=== PATIENT | female | born 1970 | race Hispanic/Latino ===

== ENCOUNTER 2016-12-23 21:19 | Emergency (ER) | payer OTHER | END 2016-12-23 22:32 | disposition home or self-care (01) | LOC: ERS 21:19 | DX: F41.9 Anxiety disorder, unspecified (principal); E11.9 Type 2 diabetes mellitus without complications; E78.5 Hyperlipidemia, unspecified; I10 Essential (primary) hypertension; F20.9 Schizophrenia, unspecified; F31.9 Bipolar disorder, unspecified | CPT/HCPCS: 99284 ==

== ENCOUNTER 2017-01-25 12:00 | Emergency (ER) | payer OTHER ==
[2017-01-25 13:27] LABS: #Lymphocytes 2.7 thou/uL (1.20-3.40); #Monocytes 0.8 thou/uL (0.11-0.59); #Neutrophils 2.8 thou/uL (1.40-6.50); %Basophils 0.5 % (0.0-1.0); %Eosinophils 0.6 % (0.0-10.0); %Lymphocytes 43.1 % (21.0-51.0); %Monocytes 12.4 % (0.0-10.0); Hematocrit 43.5 % (36.0-47.0); Mean Platelet Volume 8.3 fL (7.4-10.4); Red Blood Cell (RBC) Count 4.85 mill/uL (4.20-5.40); White Blood Cell (WBC) Count 6.3 thou/uL (4.8-10.8)
[2017-01-25 13:34] LABS: Bilirubin Negative (Negative); Blood, Urine Negative (Negative); Glucose, Urine (Dipstick) 100 mg/dL (Negative); Ketone, Urine Trace mg/dL (Negative); Nitrite Negative (Negative); Protein, Urine (Dipstick) 30 mg/dL (Neg-Trace)
[2017-01-25 13:36] LABS: Bacteria/HPF Rare-Few HPF (None Seen); Hyaline Casts/LPF 0-3 HYALINE CAST LPF (0-3 Hyaline); RBC/HPF 0-3 HPF (0-3); WBC/HPF 0-3 HPF (0-3)
[2017-01-25 13:50] LABS: ALT (SGPT) 40 U/L (8-55); AST (SGOT) 30 U/L (5-34); Alkaline Phosphatase 118 U/L (40-150); Anion Gap 13 mmol/L (10-20); BUN (Urea Nitrogen) 6 mg/dL (7.0-18.7); Bilirubin, Total 0.5 mg/dL (0.2-1.2); Calc. Creatinine Clearance 0 mL/min (70-130); Calcium 9.3 mg/dL (7.8-10.44); Carbon Dioxide 26 mmol/L (22-29); Chloride 103 mmol/L (98-107); Estimated GFR-MDRD 76; Globulin 3.6 g/dL (2.4-3.5); Lipase 10 U/L (8-78); Protein, Total 7.7 g/dL (6.0-8.3)
[2017-01-25] MEDS ORDERED: Ondansetron HCl/PF 4 MG/2 ML Vial ONE (15:45)
[2017-01-25] MEDS ORDERED: Ondansetron ODT 4 MG TAB ONE (16:24)
== END 2017-01-25 17:08 | disposition home or self-care (01) ==
LOC: ERS 12:00
DX: E86.0 Dehydration (principal); R19.7 Diarrhea, unspecified; E11.9 Type 2 diabetes mellitus without complications; E78.5 Hyperlipidemia, unspecified; I10 Essential (primary) hypertension; F41.9 Anxiety disorder, unspecified; F31.9 Bipolar disorder, unspecified; F20.9 Schizophrenia, unspecified; Z86.73 Personal history of transient ischemic attack (TIA), and cerebral infarction without residual deficits
CPT/HCPCS: 36415; 80053; 81003; 81015; 83690; 85025; 96372; J2405; Q0162

== ENCOUNTER 2017-02-09 19:23 | Observation (INO) | payer OTHER ==
[2017-02-09 20:08] LABS: #Basophils 0.1 thou/uL (0.0-0.2); #Eosinphils 0.1 thou/uL (0.0-0.7); #Lymphocytes 3.3 thou/uL (1.20-3.40); #Monocytes 0.6 thou/uL (0.11-0.59); #Neutrophils 4.2 thou/uL (1.40-6.50); %Basophils 0.7 % (0.0-1.0); %Eosinophils 1.3 % (0.0-10.0); %Lymphocytes 39.7 % (21.0-51.0); %Monocytes 7.5 % (0.0-10.0); Hematocrit 37.6 % (36.0-47.0); Mean Platelet Volume 8.6 fL (7.4-10.4); Red Blood Cell (RBC) Count 4.14 mill/uL (4.20-5.40); White Blood Cell (WBC) Count 8.2 thou/uL (4.8-10.8)
[2017-02-09 20:30] LABS: ALT (SGPT) 91 U/L (8-55); AST (SGOT) 36 U/L (5-34); Alkaline Phosphatase 154 U/L (40-150); Anion Gap 16 mmol/L (10-20); BUN (Urea Nitrogen) 15 mg/dL (7.0-18.7); Bilirubin, Total 0.4 mg/dL (0.2-1.2); Calc. Creatinine Clearance 0 mL/min (70-130); Calcium 10.1 mg/dL (7.8-10.44); Carbon Dioxide 23 mmol/L (22-29); Chloride 94 mmol/L (98-107); Estimated GFR-MDRD 54; Globulin 3.5 g/dL (2.4-3.5); Protein, Total 7.4 g/dL (6.0-8.3)
[2017-02-09 20:33] LABS: Anion Gap 10 mmol/L (-14-95); pH (Venous) 7.432 (7.35-7.45); vO2 Saturation-calc 89.6 % (0.0-100.0)
[2017-02-09 20:35] LABS: Bilirubin Negative (Negative); Blood, Urine Negative (Negative); Glucose, Urine (Dipstick) >=1000 mg/dL (Negative); Ketone, Urine Negative (Negative); Nitrite Negative (Negative); Protein, Urine (Dipstick) Negative (Neg-Trace); Urobilinogen 0.2 mg/dL (0.2-1.0)
[2017-02-09 20:38] LABS: Troponin I Less than 0.010 ng/mL (< 0.028)
--- NOTE | 2017-02-09 20:52 | RAD ---
FRONTAL VIEW CHEST 02/09/17 INDICATION: Hyperglycemia. COMPARISON: 04/09/16 FINDINGS: Mild interstitial prominence of each lung present. The cardiac silhouette is stable. No new consoli dation, or effusion. No discrete pneumothorax. IMPRESSION: Stable chest. Mild interstitial prominence of each lung could relate to edema or interstitial lung d isease. Correlate clinically and as necessary imaging followup may be obtained. POS: [facility]
[2017-02-09] MEDS ORDERED: Insulin Regular 300 UNITS/3 ML VIAL ONE (21:22)
[2017-02-09] MEDS ORDERED: Ondansetron HCl/PF 4 MG/2 ML Vial ONE (23:06)
[2017-02-09] MEDS ORDERED: Ondansetron HCl/PF 4 MG/2 ML Vial IVP PRN (23:42)
[2017-02-09] MEDS ORDERED: hydrALAZINE 20 MG/ML VIAL SLOW IVP PRN (23:42)
[2017-02-09] MEDS ORDERED: cloNIDine 0.1 MG TAB PO PRN (23:42)
[2017-02-09] MEDS ORDERED: Dextrose 5% in Water 1,000 ML IV PRN (23:42)
[2017-02-09] MEDS ORDERED: Acetaminophen 325 MG TAB PO PRN (23:42)
[2017-02-09] MEDS ORDERED: Dextrose 50% Abboject 50 ML SYRINGE SLOW IVP PRN (23:42)
[2017-02-10] MEDS: Sodium Chloride 0.9% 1,000 ML IV SCH ×2 (00:09→14:57)
[2017-02-10] MEDS: traMADol HCl 50 MG TAB PO PRN ×2 (00:10→12:52)
[2017-02-10] MEDS ORDERED: Insulin Detemir 100 UNITS/ML 30 UNITS in Pre-Filled Syringe 1 EACH SC SCH (00:45)
[2017-02-10 00:57] LABS: Bilirubin Negative (Negative); Blood, Urine Negative (Negative); Glucose, Urine (Dipstick) >=1000 mg/dL (Negative); Ketone, Urine Negative (Negative); Nitrite Negative (Negative); Protein, Urine (Dipstick) Negative (Neg-Trace)
[2017-02-10 01:00] LABS: Bacteria/HPF Rare-Few HPF (None Seen); Hyaline Casts/LPF 0-3 HYALINE CAST LPF (0-3 Hyaline); RBC/HPF 0-3 HPF (0-3); Squamous Epithelial None Seen HPF (0-3); WBC/HPF None Seen HPF (0-3)
[2017-02-10 05:26] LABS: #Eosinphils 0.1 thou/uL (0.0-0.7); #Lymphocytes 3.4 thou/uL (1.20-3.40); #Monocytes 0.6 thou/uL (0.11-0.59); %Basophils 0.3 % (0.0-1.0); %Lymphocytes 48.2 % (21.0-51.0); %Monocytes 8.5 % (0.0-10.0); Hematocrit 36.8 % (36.0-47.0); Mean Platelet Volume 8.6 fL (7.4-10.4); Red Blood Cell (RBC) Count 4.08 mill/uL (4.20-5.40); White Blood Cell (WBC) Count 7.1 thou/uL (4.8-10.8)
--- NOTE | 2017-02-10 05:47 | HP ---
CHIEF COMPLAINT: High glucose. HISTORY OF PRESENT ILLNESS: This is a 47-year-old pleasant lady who was apparently in usual state o f health and says that she is compliant with her diet and medications. Reports that she took her No voLog and Levemir as scheduled and she checked her sugar at 5 p.m. and it was still running greater than 500 and right now she feels dry in her mouth and that is why she came into the hospital for fur ther evaluation and treatment. She denies any chest pain, dizziness. Complains of some nausea. No abdominal pain, no vomiting, no fever, no chills, no diarrhea, no dysuria. Patient has been admitt ed for further evaluation of that. PAST MEDICAL HISTORY: 1. Morbid obesity. 2. Chronic pain syndrome. 3. Diverticulosis. 4. Peptic ulcer disease. 5. Anxiety, depression. 6. Bipolar disorder. 7. Schizophrenia. 8. Rhabdomyolysis in the past. 9. 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 10. Hyperlipidemia. 11. Hypertension. 12. History of pain seeking behavior. PAST SURGICAL HISTORY: C-sections x2, right eye surgery, cholecystectomy, hysterectomy, back surger y, left carpal tunnel surgery. ALLERGIES: STADOL, TORADOL and BUTORPHANOL. CURRENT MEDICATIONS: She is unable to recall any current medications, but she says that she takes 9 0 units of Levemir twice a day and takes 300 mg of tramadol for pain control. She does not remember the other medications which will have to be verified in the morning. SOCIAL HISTORY: Denies tobacco, alcohol, or drug use. REVIEW OF SYSTEMS: Significant for high glucose and some nausea, otherwise no fever, no chills, no headache, no appetite and weight changes. No cough, no chest pain, diarrhea, dysuria or polyuria. N o memory mood changes. No pain. PHYSICAL EXAMINATION: VITAL SIGNS: Blood pressure is 107/64, pulse is 84, temperature afebrile. Respirations 20. GENERAL: Patient is lying in bed in no apparent distress. HEENT: Atraumatic, normocephalic. Pupils equally round, react to light. Extraocular movements int act. Mucous membranes are moist. NECK: Supple. No JVD. CHEST: Breath sounds heard. There are no rales or rhonchi. HEART: S1, S2. No murmurs or gallops. ABDOMEN: Soft, obese. EXTREMITIES: No cyanosis, clubbing, edema. Left wrist is in a brace. NEUROLOGIC: Her speech is slow. She is a little drowsy. She admits to taking tramadol this after noon, 300 mg. No sensorimotor deficits. SKIN: Warm and dry, normal in color. PSYCHIATRIC: Normal affect. LABORATORY DATA: Chest x-ray shows some mild interstitial prominence which could relate to edema or interstitial lung disease. CK-MB is 20.9, troponin is less than 0.01. UA shows glucosuria, otherw ise negative. Venous pH is 7.43. Sodium is 129, potassium is 4.0, chloride is 94, creatinine is 1. 08, glucose was 670, AST is 36, ALT is 91, alkaline phosphatase was 154. WBC count is 8.2, hemoglob in is 13.0. ASSESSMENT AND PLAN: 1. Elevated glucose. Diabetes with uncontrolled glucose. The patient says that she is compliant w ith Levemir and with insulin and the diet. She got 10 units of insulin in this hospital which was b rought her sugars from 672 down to 300s. We will start her off on 30 of Levemir b.i.d. and put her on an aggressive sliding scale, we will optimize her glucose control this hospital stay. We will al so IV hydrate, give her IV fluids for hydration. 2. Hyponatremia. We will give IV fluids. 3. Elevated liver function tests. The patient has been evaluated in the past. GI was consulted an d at that time they thought it was probably secondary to some kind of viral hepatitis. She has been encouraged to follow up as an outpatient with GI. 4. Irritable bowel disease with diarrhea. She says that right now she is doing fine with that. 5. Morbid obesity, stable. 6. Hyperlipidemia, stable. 7. History of peptic ulcer disease, stable. 8. History of hypothyroidism. She does not remember the dose of the thyroid medication. 9. Chronic pain syndrome. She was initially on fentanyl and a bunch of other pain medications. Ri t now she takes 300 mg of tramadol once a day for pain control. We will put her back on tramadol 50 mg p.o. q.6 hours p.r.n. for pain. 10. Sequential compression devices for deep venous thrombosis prophylaxis. I will follow the labs and do the need for.
[2017-02-10 05:54] LABS: Anion Gap 15 mmol/L (10-20); BUN (Urea Nitrogen) 13 mg/dL (7.0-18.7); Calc. Creatinine Clearance 0 mL/min (70-130); Calcium 10.6 mg/dL (7.8-10.44); Carbon Dioxide 23 mmol/L (22-29); Chloride 100 mmol/L (98-107); Estimated GFR-MDRD 84
[2017-02-10] MEDS: HumaLOG 300 UNITS/3 ML VIAL SC PRN ×5 (06:10→20:24)
[2017-02-10] MEDS ORDERED: Insulin Detemir 100 UNITS/ML 30 UNITS in Admixture Fee 1 EACH SC SCH ×2 (09:00→21:00)
[2017-02-10] MEDS ORDERED: FLU VACC QS2017-18 36 mo. & older 0.5 ML SYRINGE IM ONE (09:00)
[2017-02-10] MEDS: Famotidine 20 MG TAB PO SCH ×2 (09:09→20:21)
[2017-02-10] MEDS ORDERED: HYDROcodone/Acetaminophen 10/325 mg Tablet PO PRN (14:18)
[2017-02-10] MEDS ORDERED: Insulin Detemir 100 UNITS/ML 45 UNITS in Admixture Fee 1 EACH SC SCH ×2 (16:53→21:00)
--- NOTE | 2017-02-10 17:10 | PDOC.PN ---
- Subjective Encounter Start Date: 02/10/17 Encounter Start Time: 16:50 Subjective: f/u for hyperglycemia in context of DM II poor control. Glucose trend -: improved but not controlled. Pt with multiple somatic complaints. - Objective MAR Reviewed: Yes Vital Signs & Weight: Vital Signs (12 hours) Temp Pulse Resp BP Pulse Ox 02/10/17 15:00 97.9 F 105 H 16 176/90 H 93 L 02/10/17 11:00 98.3 F 105 H 16 131/73 94 L 02/10/17 07:50 97.5 F L 91 18 02/10/17 07:10 98.0 F 96 16 125/69 98 Weight Admit Weight 252 lb 8 oz I&O: 02/09/17 02/10/17 02/11/17 06:59 06:59 06:59 Intake Total 976 Output Total 1600 Balance -624 Result Diagrams: 02/10/17 05:04 02/10/17 05:04 Additional Labs: Accuchecks 02/10/17 02/10/17 02/10/17 16:41 12:08 10:44 POC Glucose 237 H 284 H 351 H 02/10/17 02/10/17 02/10/17 09:08 06:23 06:10 POC Glucose 410 H 371 H 348 H 02/09/17 23:11 POC Glucose 308 H Laboratory Tests 02/09/17 02/09/17 02/10/17 19:43 20:08 00:25 Urine Glucose (UA) >=1000 H >=1000 H B-Hydroxybutyrate 0.21 Radiology Reviewed by me: Yes (PCXR - atelectasis) EKG Reviewed by me: Yes (Tele - SR) Phys Exam - Physical Examination Constitutional: NAD HEENT: PERRLA, oral pharynx no lesions Neck: no JVD, supple Respiratory: no wheezing, clear to auscultation bilateral Cardiovascular: RRR obese Gastrointestinal: soft, non-tender, no distention, positive bowel sounds Musculoskeletal: no edema, pulses present Neurological: moves all 4 limbs Psychiatric: A&O x 3 Skin: normal turgor, cap refill <2 seconds Dx/Plan (1) Hyperglycemia due to type 2 diabetes mellitus Code(s): E11.65 - TYPE 2 DIABETES MELLITUS WITH HYPERGLYCEMIA Status: Acute Comment: Poorly controlled DM II, resume home Levemir 100u sc BID, ISS, Resume Victoza (2) Bipolar 1 disorder Code(s): F31.9 - BIPOLAR DISORDER, UNSPECIFIED Status: Chronic Comment: Resume home regimen (3) Hyponatremia Code(s): E87.1 - HYPO-OSMOLALITY AND HYPONATREMIA Status: Acute Comment: Secondary to hyperglycemia, repeat BMP in am (4) Chronic pain syndrome Status: Chronic (5) Fatty liver Code(s): K76.0 - FATTY (CHANGE OF) LIVER, NOT ELSEWHERE CLASSIFIED Status: Chronic Comment: chronic transaminitis (6) Hypothyroidism Code(s): E03.9 - HYPOTHYROIDISM, UNSPECIFIED Status: Chronic Qualifiers: Hypothyroidism type: unspecified Qualified Code(s): E03.9 - Hypothyroidism , unspecified (7) Morbid obesity with BMI of 40.0-44.9, adult Code(s): E66.01 - MORBID (SEVERE) OBESITY DUE TO EXCESS CALORIES; Z68.41 - BODY MASS INDEX (BMI) 40.0-44.9, ADULT Status: Chronic - Plan out of bed/ambulate, DVT proph w/SCDs Stable overall -: Pain control with Morphine Sulfate 2mg IV q4h prn -: Resume home Levemir 100u sc BID -: Resume Victoza -: Saline lock IVF's * AM lab: CMP, CBC * Likely home in am
[2017-02-10] MEDS: Morphine PF 1 MG/ML SYR IVP PRN ×2 (17:36→21:50)
[2017-02-10] MEDS: cloNIDine 0.3 MG TAB PO SCH (20:21)
[2017-02-10] MEDS: clonazePAM 1 MG TAB PO SCH (20:22)
[2017-02-10] MEDS: Gabapentin 300 MG CAP PO SCH (20:22)
[2017-02-10] MEDS: Carvedilol 6.25 MG TAB PO SCH (20:22)
[2017-02-10] MEDS: Insulin Detemir 100 UNITS/ML 100 UNITS in Pre-Filled Syringe 1 EACH SC SCH (20:23)
[2017-02-10] MEDS ORDERED: tiZANidine HCl 4 MG TAB PO PRN (21:00)
[2017-02-10] MEDS ORDERED: INSULIN DETEMIR 100 UNIT SC SCH (21:00)
[2017-02-10] MEDS ORDERED: DULoxetine 60 MG CAP PO SCH (21:00)
[2017-02-11] MEDS ORDERED: Zolpidem Tartrate 5 MG TAB PO SCH (01:15)
[2017-02-11] MEDS: Morphine PF 1 MG/ML SYR IVP PRN ×2 (02:54→08:14)
[2017-02-11] MEDS: Sodium Chloride 0.9% 1,000 ML IV SCH (03:00)
[2017-02-11 05:45] VITALS: BMI 40.7
[2017-02-11] MEDS ORDERED: Levothyroxine Sodium 25 MCG TAB PO SCH (06:00)
[2017-02-11 08:12] VITALS: BP 161/91; TEMP 97.8
[2017-02-11] MEDS ORDERED: TRAMADOL HCL 300 MG PO SCH (09:00)
[2017-02-11] MEDS ORDERED: Allopurinol 100 MG TAB PO SCH (09:00)
[2017-02-11] MEDS ORDERED: Liraglutide [Victoza 2-Pak] 1.8 MG SC SCH (09:00)
[2017-02-11] MEDS: cloNIDine 0.3 MG TAB PO SCH (09:06)
[2017-02-11] MEDS: Carvedilol 6.25 MG TAB PO SCH (09:06)
[2017-02-11] MEDS: clonazePAM 1 MG TAB PO SCH (09:06)
[2017-02-11] MEDS: Gabapentin 300 MG CAP PO SCH (09:07)
[2017-02-11] MEDS: Insulin Detemir 100 UNITS/ML 100 UNITS in Pre-Filled Syringe 1 EACH SC SCH (09:07)
[2017-02-11] MEDS: Famotidine 20 MG TAB PO SCH (09:07)
--- NOTE | 2017-02-11 16:35 | DIS ---
DATE OF ADMISSION: 02/09/2017 DATE OF DISCHARGE: 02/11/2017 DISCHARGE DIAGNOSES: 1. Hyperglycemia in the context of diabetes mellitus type 2, insulin requiring, poorly controlled. 2. Chronic pain syndrome. 3. Bipolar disorder. 4. Hyponatremia secondary to hyperglycemia. 5. Fatty liver disease. 6. Morbid obesity. 7. Hypothyroidism, stable. 8. Sinus tachycardia. 9. Hypertension, stable. CONSULTATIONS: None. PERTINENT LABORATORY AND X-RAY FINDINGS: Sodium ranged between 129-134, glucose ranged between 180- 670, AST 36, ALT 91, alkaline phosphatase 154, albumin 3.9. CBC within normal limits. Beta hydroxy butyrate level 0.21. Portable chest x-ray dated 02/09/2017 showed basilar atelectasis. HOSPITAL COURSE: The patient was observed on the medical unit after presenting with markedly elevat ed glucose with values greater than 600. The patient with known history of diabetes mellitus type 2 , insulin requiring with multiple admissions regarding the same. The patient was placed on IV fluid s in addition to subcutaneous insulin with titration to home regimen to include Levemir 100 units zeng bcutaneously b.i.d. The patient's overall glucose trend with labile; however, had improved with sup portive management. No specific underlying etiology identified such as infectious process to explai n patient's presentation. Likely secondarily to dietary noncompliance. The patient was treated for mild hyponatremia secondary to hyperglycemia, improving by the time of discharge. The patient also required IV pain control with morphine sulfate in the context of known chronic pain syndrome and mi ld drug seeking behavior. Telemetry monitoring showed sinus mechanism with occasional sinus tachyca rdia without acute arrhythmia or dysrhythmia. The patient overall remained clinically stable, recei ving dietary counseling from the dietitian services. The patient ready for discharge on 02/11/2017. DISCHARGE MEDICATIONS: 1. Allopurinol 100 mg 1 tab p.o. daily. 2. Coreg 6.25 mg p.o. b.i.d. 3. Cymbalta 120 mg p.o. at bedtime. 4. Gabapentin 600 mg p.o. t.i.d. 5. Holcomb 10/325 mg 1 tab p.o. q.6 hours p.r.n. pain, #12 given, no refills. 6. Humalog t.i.d. with meals. 7. Levemir FlexPen 100 units subcutaneously b.i.d. 8. Levothyroxine 25 mcg p.o. daily. 9. Victoza 1.8 mg subcutaneously daily. 10. Protonix 40 mg one tab p.o. daily. 11. Tramadol ER 300 mg p.o. daily. 12. Clonidine 0.3 mg p.o. b.i.d. 13. Clonazepam 2 mg p.o. t.i.d. 14. Tizanidine 8 mg p.o. t.i.d. p.r.n. FOLLOWUP: The patient may follow up with her primary care provider, Dr. Noah Stewart within 7 days of discharge. CONDITION ON DISCHARGE: Stable. ACTIVITY: Ad john. DIET: Heart healthy and ADA. CODE STATUS: FULL. DISPOSITION: Home on 02/11/2017.
--- NOTE | 2017-02-19 14:54 | EKG ---
Test Reason : C/O CHEST PAIN Blood Pressure : / mmHG Vent. Rate : 104 BPM Atrial Rate : 104 BPM P-R Int : 138 ms QRS Dur : 094 ms QT Int : 374 ms P-R-T Axes : 031 065 032 degrees QTc Int : 491 ms Sinus tachycardia Otherwise normal ECG When compared with ECG of 09-FEB-2017 19:44, (Unconfirmed) No significant change was found Confirmed by VIRY VEGA ([id number]) on 02/19/2017 2:54:03 PM Referred By: SAEID Confirmed By:VIRY VEGA
--- NOTE | 2017-03-25 15:41 | EKG ---
Test Reason : Blood Pressure : / mmHG Vent. Rate : 089 BPM Atrial Rate : 089 BPM P-R Int : 142 ms QRS Dur : 098 ms QT Int : 378 ms P-R-T Axes : 019 051 031 degrees QTc Int : 459 ms Normal sinus rhythm Normal ECG Confirmed by DREW ROSARIO MD ([id number]), editor producer DEON BAXTER ([id number]) on 03/25/2017 3:41:42 PM Referred By: Confirmed By:DREW ROSARIO MD
== END 2017-02-11 11:59 | disposition home or self-care (01) ==
LOC: ERS 19:23 → 2SW 22:26
PROVIDERS: ADMIT Internal Medicine; ATTEND Internal Medicine
DX: E11.65 Type 2 diabetes mellitus with hyperglycemia (principal); G89.4 Chronic pain syndrome; F31.9 Bipolar disorder, unspecified; E87.1 Hypo-osmolality and hyponatremia; K76.0 Fatty (change of) liver, not elsewhere classified; E66.01 Morbid (severe) obesity due to excess calories; E03.9 Hypothyroidism, unspecified; R00.0 Tachycardia, unspecified; F41.9 Anxiety disorder, unspecified; F20.9 Schizophrenia, unspecified; E11.22 Type 2 diabetes mellitus with diabetic chronic kidney disease; I12.9 Hypertensive chronic kidney disease with stage 1 through stage 4 chronic kidney disease, or unspecified chronic kidney disease; N18.2 Chronic kidney disease, stage 2 (mild); R94.5 Abnormal results of liver function studies; Z68.41 Body mass index [BMI] 40.0-44.9, adult; Z79.4 Long term (current) use of insulin; Z79.899 Other long term (current) drug therapy; Z88.6 Allergy status to analgesic agent; Z88.5 Allergy status to narcotic agent; Z90.49 Acquired absence of other specified parts of digestive tract; Z90.710 Acquired absence of both cervix and uterus; Z98.890 Other specified postprocedural states; Z87.11 Personal history of peptic ulcer disease
CPT/HCPCS: 36415; 36416; 71010; 80048; 80053; 81001; 81003; 82010; 82330; 82553; 82803; 84484; 85025; 90471; 90682; 93005; 93010; 96361; 96374; 96375; 96376; A4216; G0008; G0378; J1815; J2274; J2405; Q2036

== ENCOUNTER 2017-03-16 08:51 | Emergency (ER) | payer OTHER ==
[2017-03-16] MEDS ORDERED: Diazepam 5 MG TAB ONE (10:01)
== END 2017-03-16 10:03 | disposition home or self-care (01) ==
LOC: ERS 08:51
DX: M54.2 Cervicalgia (principal); G89.29 Other chronic pain; E11.9 Type 2 diabetes mellitus without complications; E78.5 Hyperlipidemia, unspecified; I10 Essential (primary) hypertension; F41.9 Anxiety disorder, unspecified; F31.9 Bipolar disorder, unspecified; F20.9 Schizophrenia, unspecified; Z86.73 Personal history of transient ischemic attack (TIA), and cerebral infarction without residual deficits; Z79.4 Long term (current) use of insulin; Z79.899 Other long term (current) drug therapy
CPT/HCPCS: 99283

== ENCOUNTER 2017-04-13 19:50 | Emergency (ER) | payer OTHER ==
[2017-04-13 20:31] LABS: Bilirubin Negative (Negative); Blood, Urine Negative (Negative); Clarity CLEAR (Clear); Glucose, Urine (Dipstick) 500 mg/dL (Negative); Leukocyte Negative (Negative); Nitrite Negative (Negative); Protein, Urine (Dipstick) 30 mg/dL (Neg-Trace); Specific Gravity, Urine 1.024 (1.002-1.036); Urobilinogen 0.2 mg/dL (0.2-1.0)
[2017-04-13 20:33] LABS: Bacteria/HPF 1+ HPF (None Seen); Hyaline Casts/LPF 0-3 HYALINE CAST LPF (0-3 Hyaline); Pathc Cast-AUWi Flag 0.13 (0-2.49); Squamous Epithelial 0-3 HPF (0-3); WBC/HPF 0-3 HPF (0-3)
[2017-04-13 20:35] LABS: #Basophils 0.1 thou/uL (0.0-0.2); #Eosinphils 0.1 thou/uL (0.0-0.7); #Lymphocytes 3.5 thou/uL (1.20-3.40); #Monocytes 1.1 thou/uL (0.11-0.59); #Neutrophils 7.1 thou/uL (1.40-6.50); %Basophils 0.5 % (0.0-1.0); %Lymphocytes 29.4 % (21.0-51.0); %Neutrophils 60.2 % (42.0-75.0); Hemoglobin 16.3 g/dL (12.0-16.0); Mean Corpuscular Hemoglobin 28.2 pg (27.0-31.0); Mean Corpuscular Volume 91.2 fl (81.0-99.0); Mean Platelet Volume 8.3 fL (7.4-10.4); Platelet Count 270 thou/uL (130-400); RBC Distribution Width 12.2 % (11.5-14.5); Red Blood Cell (RBC) Count 5.77 mill/uL (4.20-5.40); White Blood Cell (WBC) Count 11.8 thou/uL (4.8-10.8)
[2017-04-13 20:45] LABS: RBC/HPF 0-3 HPF (0-3)
[2017-04-13 20:53] LABS: ALT (SGPT) 57 U/L (8-55); AST (SGOT) 61 U/L (5-34); Albumin 4.4 g/dL (3.5-5.0); Alkaline Phosphatase 155 U/L (40-150); Anion Gap 18 mmol/L (10-20); BUN (Urea Nitrogen) 8 mg/dL (7.0-18.7); Bilirubin, Total 0.5 mg/dL (0.2-1.2); Calc. Creatinine Clearance 0 mL/min (70-130); Calcium 10.4 mg/dL (7.8-10.44); Carbon Dioxide 19 mmol/L (22-29); Chloride 101 mmol/L (98-107); Estimated GFR-MDRD 77; Globulin 3.9 g/dL (2.4-3.5); Glucose 246 mg/dL (70-105); Lipase 15 U/L (8-78); Potassium 4.3 mmol/L (3.5-5.1); Protein, Total 8.3 g/dL (6.0-8.3); Sodium 134 mmol/L (136-145)
[2017-04-13 22:04] LABS: Pregnancy Test - Urine (BHCG) Negative (Negative); Pregu Control Background? CLEAR/WHITE (CLR/WHITE); Pregu Control Bar Appear? YES (CONTROL BAR); Specific Gravity 1.024 (1.002-1.036)
--- NOTE | 2017-04-13 22:35 | CT ---
CT ABDOMEN AND PELVIS WITHOUT CONTRAST 04/13/17 HISTORY: Abdominal pain. FINDINGS: Comparison made with exam of 11/04/16. Absence of oral and IV contrast reduces the sensitivity of the exam particularly for evaluation of so lid organs and bowel. The lung bases are clear. The patient is postcholecystectomy. No free air or free fluid is seen in t he abdomen or pelvis. Changes of fatty infiltration of the liver are redemonstrated. A normal appeari ng appendix is present. No calculi is seen in the kidneys, ureters or urinary bladder. No hydroureteronephrosis is noted on e ither side. There is colonic diverticulosis without evidence of diverticulitis. Degenerative changes are present in the spine. There is no evidence of aneurysmal of the abdominal aorta. The patient is p ost hysterectomy. IMPRESSION: 1. Fatty liver. 2. No CT evidence of urinary tract calculi or obstruction. 3. Colonic diverticulosis. POS: [facility]
== END 2017-04-13 22:23 | disposition home or self-care (01) ==
LOC: ERS 19:50
DX: R10.32 Left lower quadrant pain (principal); R11.2 Nausea with vomiting, unspecified; R19.7 Diarrhea, unspecified; E11.9 Type 2 diabetes mellitus without complications; E78.5 Hyperlipidemia, unspecified; I10 Essential (primary) hypertension; F31.9 Bipolar disorder, unspecified; F41.9 Anxiety disorder, unspecified; Z86.73 Personal history of transient ischemic attack (TIA), and cerebral infarction without residual deficits
CPT/HCPCS: 36415; 74176; 80053; 81003; 81015; 81025; 83690; 85025; 96360; 96372

== ENCOUNTER 2017-04-16 12:15 | Emergency (ER) | payer OTHER ==
[2017-04-16] MEDS ORDERED: Morphine 4 MG/ML Carpuject ONE (13:49)
--- NOTE | 2017-04-16 14:30 | RAD ---
2 VIEWS LEFT KNEE: Date: 04/16/17 COMPARISON: None. HISTORY: Pain. FINDINGS: There is mild patellofemoral joint space narrowing and posterior patellar osteophyte formation. There is mild medial compartment narrowing with associated medial osteophyte formation. No acute fracture or dislocation. IMPRESSION: Degenerative change with no acute osseous abnormality. POS: [facility]
--- NOTE | 2017-04-16 14:32 | RAD ---
AP PELVIS 1 VIEW: Date: 04/16/17 HISTORY: 47-year-old female with pelvic pain. COMPARISON: 11/01/15. FINDINGS: No fracture, dislocation, or other significant acute osseous abnormality. IMPRESSION: Unremarkable AP pelvis. POS: [facility]
--- NOTE | 2017-04-16 14:32 | RAD ---
2 VIEWS LEFT FOREARM: Date: 04/16/17 COMPARISON: None. HISTORY: Pain. FINDINGS: No fracture or dislocation seen. IMPRESSION: No acute findings. POS: [facility]
--- NOTE | 2017-04-16 14:33 | RAD ---
2 VIEWS RIGHT KNEE: Date: 04/16/17 COMPARISON: None. HISTORY: Pain. FINDINGS: There is medial compartment narrowing with medially projecting osteophytes. There is mild patellofemo ral joint space narrowing as well. No knee joint effusion, fracture, or evidence of dislocation. IMPRESSION: Degenerative joint disease with no acute osseous abnormality. POS: [facility]
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
== END 2017-04-16 14:15 | disposition home or self-care (01) ==
LOC: ERS 12:15
DX: R07.81 Pleurodynia (principal); M25.562 Pain in left knee; M25.561 Pain in right knee; R10.2 Pelvic and perineal pain; M25.532 Pain in left wrist; E11.9 Type 2 diabetes mellitus without complications; E78.5 Hyperlipidemia, unspecified; I10 Essential (primary) hypertension; F32.9 Major depressive disorder, single episode, unspecified; F41.9 Anxiety disorder, unspecified; F20.9 Schizophrenia, unspecified
CPT/HCPCS: 72170; 96372; J2270

== ENCOUNTER 2017-05-11 13:05 | Emergency (ER) | payer OTHER | END 2017-05-11 13:36 | disposition home or self-care (01) | LOC: ERS 13:05 | DX: G89.29 Other chronic pain (principal); M79.642 Pain in left hand; M79.604 Pain in right leg; E11.9 Type 2 diabetes mellitus without complications; E78.5 Hyperlipidemia, unspecified; I10 Essential (primary) hypertension; F41.9 Anxiety disorder, unspecified; F31.9 Bipolar disorder, unspecified; F20.9 Schizophrenia, unspecified; Z86.73 Personal history of transient ischemic attack (TIA), and cerebral infarction without residual deficits | CPT/HCPCS: 99283 ==

== ENCOUNTER 2017-05-12 15:40 | Emergency (ER) | payer OTHER ==
--- NOTE | 2017-05-12 18:29 | RAD ---
LEFT HAND THREE VIEWS: 05/12/17 HISTORY: Hand injury. There are arthritic changes of the hand, mainly related to interphalangeal joints. There is no signs of fracture. IMPRESSION: Osteoarthritic changes of the hand. No acute process. POS: [facility]
--- NOTE | 2017-05-12 18:43 | RAD ---
AP PELVIS: 05/12/17 HISTORY: Bilateral hip pain after fall. SI joints are symmetric. There is no signs of any diastasis of the symphysis. No fractures of the bon y pelvic ring or hips. IMPRESSION: Negative AP pelvis. POS: [facility]
[2017-05-12] MEDS ORDERED: Ketorolac Tromethamine 60 MG/2 ML VIAL ONE (18:59)
== END 2017-05-12 19:20 ==
LOC: ERS 15:40
DX: M25.552 Pain in left hip (principal); M25.551 Pain in right hip; M25.532 Pain in left wrist; E11.9 Type 2 diabetes mellitus without complications; E78.5 Hyperlipidemia, unspecified; I10 Essential (primary) hypertension; F41.9 Anxiety disorder, unspecified; F31.9 Bipolar disorder, unspecified; F20.9 Schizophrenia, unspecified; Z86.73 Personal history of transient ischemic attack (TIA), and cerebral infarction without residual deficits; W18.30XA Fall on same level, unspecified, initial encounter
CPT/HCPCS: 72170; 96372; J1885

== ENCOUNTER 2017-06-10 16:02 | Inpatient (IN) | payer OTHER ==
[2017-06-10] MEDS ORDERED: Acetaminophen 500 MG TAB ONE ×2 (16:50→16:51)
[2017-06-10] MEDS ORDERED: Meropenem 1 GM in Sterile Water 20 ML SLOW IVP SCH (17:00)
[2017-06-10 17:17] LABS: #Basophils 0.1 thou/uL (0.0-0.2); #Eosinphils 0.1 thou/uL (0.0-0.7); #Lymphocytes 2.6 thou/uL (1.20-3.40); #Monocytes 0.7 thou/uL (0.11-0.59); #Neutrophils 3.8 thou/uL (1.40-6.50); %Basophils 0.9 % (0.0-1.0); %Eosinophils 1.7 % (0.0-10.0); %Lymphocytes 36.1 % (21.0-51.0); %Monocytes 9.2 % (0.0-10.0); %Neutrophils 52.1 % (42.0-75.0); Hemoglobin 14.6 g/dL (12.0-16.0); Mean Corpuscular Hemoglobin 30.8 pg (27.0-31.0); Mean Corpuscular Volume 87.9 fl (81.0-99.0); Mean Platelet Volume 8.5 fL (7.4-10.4); Platelet Count 175 thou/uL (130-400); RBC Distribution Width 12.5 % (11.5-14.5); Red Blood Cell (RBC) Count 4.73 mill/uL (4.20-5.40); White Blood Cell (WBC) Count 7.3 thou/uL (4.8-10.8)
--- NOTE | 2017-06-10 17:23 | RAD ---
RIGHT FOOT THREE VIEWS: 06/10/17 HISTORY: Right foot pain. FINDINGS/IMPRESSION: No fracture, dislocation or bony destruction is identified. A plantar calcaneal spur is present. POS: [facility]
[2017-06-10] MEDS ORDERED: Acetaminophen 325 MG TAB PO PRN (17:28)
[2017-06-10] MEDS ORDERED: Dextrose 50% Abboject 50 ML SYRINGE SLOW IVP PRN ×3 (17:38→17:41)
[2017-06-10] MEDS ORDERED: Dextrose 5% in Water 1,000 ML IV PRN ×3 (17:38→17:41)
[2017-06-10] MEDS ORDERED: Insulin Regular 300 UNITS/3 ML VIAL SC PRN (17:38)
[2017-06-10] MEDS ORDERED: hydrALAZINE 20 MG/ML VIAL SLOW IVP PRN (17:43)
[2017-06-10] MEDS ORDERED: Amlodipine 10 MG TAB PO SCH (17:45)
[2017-06-10 17:47] LABS: ALT (SGPT) 187 U/L (8-55); AST (SGOT) 119 U/L (5-34); Albumin 4.3 g/dL (3.5-5.0); Alkaline Phosphatase 213 U/L (40-150); Anion Gap 16 mmol/L (10-20); BUN (Urea Nitrogen) 8 mg/dL (7.0-18.7); Bilirubin, Total 0.5 mg/dL (0.2-1.2); Calc. Creatinine Clearance 0 mL/min (70-130); Carbon Dioxide 26 mmol/L (22-29); Chloride 98 mmol/L (98-107); Estimated GFR-MDRD 65; Globulin 3.7 g/dL (2.4-3.5); Glucose 380 mg/dL (70-105); Potassium 3.8 mmol/L (3.5-5.1); Sodium 136 mmol/L (136-145)
[2017-06-10] MEDS ORDERED: Nitroglycerin 0.4 MG TAB (25 Tab Bottle) ONE (17:49)
[2017-06-10] MEDS: HYDROcodone/Acetaminophen 10/325 mg Tablet PO PRN ×2 (19:30→23:16)
[2017-06-10] MEDS ORDERED: Gabapentin 300 MG CAP PO SCH (21:00)
[2017-06-10] MEDS ORDERED: INSULIN DETEMIR SC SCH (21:00)
[2017-06-10] MEDS: Docusate 100 MG CAP PO SCH (21:00)
[2017-06-10] MEDS: clonazePAM 1 MG TAB PO SCH (21:00)
[2017-06-10] MEDS ORDERED: ADMIXTURE FEE SC SCH (21:00)
[2017-06-10] MEDS ORDERED: Carvedilol 6.25 MG TAB PO SCH (21:00)
[2017-06-10] MEDS: Famotidine 20 MG TAB PO SCH (21:01)
[2017-06-10] MEDS: DULoxetine 60 MG CAP PO SCH (21:01)
[2017-06-10] MEDS: Heparin 5,000 UNITS/ML VIAL SC SCH (21:01)
[2017-06-10] MEDS: Insulin Detemir 100 UNITS/ML 50 UNITS in Pre-Filled Syringe 1 EACH SC SCH (21:02)
[2017-06-10] MEDS: risperiDONE 1 MG TAB PO SCH (21:06)
[2017-06-10] MEDS: OLANZapine 5 MG TAB PO SCH (21:06)
[2017-06-10] MEDS: Sodium Chloride 0.9% 1,000 ML IV SCH (21:14)
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
[2017-06-10] MEDS: tiZANidine HCl 4 MG TAB PO PRN (21:55)
[2017-06-10] MEDS: Piperacillin/Tazobactam 4.5 GM in Sodium Chloride 0.9% 100 ML IVPB SCH (21:59)
[2017-06-10 22:07] LABS: Lactic Acid 3.3 mmol/L (0.5-2.2)
[2017-06-10] MEDS ORDERED: Vancomycin HCl 1.5 GM in Sodium Chloride 0.9% 250 ML 300 ML IVPB SCH (22:15)
[2017-06-10 23:35] VITALS: BMI 40.5
[2017-06-11] MEDS: Piperacillin/Tazobactam 4.5 GM in Sodium Chloride 0.9% 100 ML IVPB SCH ×4 (03:14→19:41)
[2017-06-11 05:01] LABS: #Eosinphils 0.1 thou/uL (0.0-0.7); #Lymphocytes 2.9 thou/uL (1.20-3.40); #Monocytes 0.6 thou/uL (0.11-0.59); %Basophils 0.6 % (0.0-1.0); %Eosinophils 1.5 % (0.0-10.0); %Lymphocytes 43.2 % (21.0-51.0); %Monocytes 9.5 % (0.0-10.0); %Neutrophils 45.2 % (42.0-75.0); Hemoglobin 12.6 g/dL (12.0-16.0); Mean Corpuscular HGB CONC 34.2 g/dL (32.0-36.0); Mean Corpuscular Hemoglobin 30.3 pg (27.0-31.0); Mean Corpuscular Volume 88.5 fl (81.0-99.0); Mean Platelet Volume 8.8 fL (7.4-10.4); Platelet Count 181 thou/uL (130-400); RBC Distribution Width 12.5 % (11.5-14.5); Red Blood Cell (RBC) Count 4.17 mill/uL (4.20-5.40); White Blood Cell (WBC) Count 6.7 thou/uL (4.8-10.8)
[2017-06-11 05:11] LABS: ALT (SGPT) 137 U/L (8-55); AST (SGOT) 79 U/L (5-34); Albumin 3.5 g/dL (3.5-5.0); Alkaline Phosphatase 169 U/L (40-150); Anion Gap 14 mmol/L (10-20); BUN (Urea Nitrogen) 10 mg/dL (7.0-18.7); Bilirubin, Total 0.4 mg/dL (0.2-1.2); Calc. Creatinine Clearance 146 mL/min (70-130); Calcium 9.4 mg/dL (7.8-10.44); Carbon Dioxide 27 mmol/L (22-29); Chloride 98 mmol/L (98-107); Estimated GFR-MDRD 71; Globulin 2.9 g/dL (2.4-3.5); Glucose 396 mg/dL (70-105); Potassium 3.9 mmol/L (3.5-5.1); Protein, Total 6.4 g/dL (6.0-8.3); Sodium 135 mmol/L (136-145)
[2017-06-11] MEDS: Levothyroxine Sodium 25 MCG TAB PO SCH (06:13)
[2017-06-11] MEDS: HYDROcodone/Acetaminophen 10/325 mg Tablet PO PRN ×4 (06:13→19:43)
[2017-06-11] MEDS: HumaLOG 300 UNITS/3 ML VIAL SC PRN ×3 (06:16→21:01)
[2017-06-11] MEDS: clonazePAM 1 MG TAB PO SCH ×3 (08:40→19:41)
[2017-06-11] MEDS: Docusate 100 MG CAP PO SCH ×2 (08:41→19:42)
[2017-06-11] MEDS: Carvedilol 25 MG TAB PO SCH (08:41)
[2017-06-11] MEDS: Heparin 5,000 UNITS/ML VIAL SC SCH ×3 (08:41→19:47)
[2017-06-11] MEDS: Sodium Chloride 0.9% 1,000 ML IV SCH ×2 (08:41→13:25)
[2017-06-11] MEDS: Famotidine 20 MG TAB PO SCH ×2 (08:41→19:43)
[2017-06-11] MEDS: Vancomycin HCl 1.5 GM in Sodium Chloride 0.9% 250 ML 300 ML IVPB SCH ×2 (10:23→22:26)
[2017-06-11] MEDS: Insulin Detemir 100 UNITS/ML 50 UNITS in Pre-Filled Syringe 1 EACH SC SCH ×2 (11:10→21:02)
--- NOTE | 2017-06-11 15:59 | PDOC.PN ---
- Subjective Encounter Start Date: 06/11/17 Encounter Start Time: 15:45 Subjective: f/u for R heel blister/ulcer and cellulitis. Receiving Zosyn and Vancomycin -: c/o pain at the site, present for 2+ weeks, +DM with neuropathy. - Objective MAR Reviewed: Yes Vital Signs & Weight: Vital Signs (12 hours) Temp Pulse Resp BP Pulse Ox 06/11/17 08:00 97.5 F L 94 18 92 L 06/11/17 07:50 97.5 F L 94 18 123/79 92 L 06/11/17 05:59 98.4 F 82 20 110/75 95 Weight Weight 251 lb 5.231 oz I&O: 06/10/17 06/11/17 06/12/17 05:59 06:59 06:59 Intake Total Balance Result Diagrams: 06/11/17 03:54 06/11/17 03:54 Additional Labs: Accuchecks 06/11/17 06/11/17 06/10/17 11:51 06:01 19:17 POC Glucose 288 H 307 H 313 H Microbiology 06/10/17 17:27 Venous blood - Right Arm Blood Culture - Preliminary Specimen has been received and culture in progress. No Growth to date. 06/10/17 17:12 Venous blood - Right Hand Blood Culture - Preliminary Specimen has been received and culture in progress. No Growth to date. Laboratory Tests 06/10/17 06/10/17 06/10/17 17:12 17:12 17:12 ESR Westergren 46 Lactic Acid 3.1 H AST 119 H ALT 187 H Alkaline Phosphatase 213 H C-Reactive Protein 06/10/17 06/10/17 06/11/17 17:12 21:40 03:54 ESR Westergren Lactic Acid 3.3 H AST 79 H ALT 137 H Alkaline Phosphatase 169 H C-Reactive Protein 4.19 H Radiology Reviewed by me: Yes (R foot X-ray - negative foreign body, bone erosion) Phys Exam - Physical Examination Constitutional: NAD HEENT: PERRLA, oral pharynx no lesions Neck: no JVD, supple Respiratory: no wheezing, clear to auscultation bilateral Cardiovascular: RRR Gastrointestinal: soft, non-tender, no distention, positive bowel sounds mild LE edema Musculoskeletal: pulses present Neurological: normal sensation, moves all 4 limbs Psychiatric: A&O x 3 Deviation from normal: R foot/heel with 3cm diameter white blister with erythematous base, clear drainage, +TTP Skin: normal turgor, cap refill <2 seconds Dx/Plan (1) DM foot ulcer Code(s): E11.621 - TYPE 2 DIABETES MELLITUS WITH FOOT ULCER; L97.509 - NON- PRESSURE CHRONIC ULCER OTH PRT UNSP FOOT W UNSP SEVERITY Status: Acute Qualifiers: Diabetic foot ulcer location: heel Diabetes mellitus type: type 2 Laterality: right Comment: Continue Zosyn and Vancomycin, WCT for local care, consult Gen surgery for evaluation, pain control (2) Cellulitis and abscess of foot Code(s): L03.119 - CELLULITIS OF UNSPECIFIED PART OF LIMB; L02.619 - CUTANEOUS ABSCESS OF UNSPECIFIED FOOT Status: Acute Comment: ? subacute cellulitis, see #1 (3) DM type 2 (diabetes mellitus, type 2) Status: Chronic Comment: Poor control, continue Levemir 50u sc BID, ISS, ADA (4) Elevated lactic acid level Code(s): E87.2 - ACIDOSIS Status: Acute Comment: Secondary to #1, continue tx as outlined in #1 (5) Hypertension Code(s): I10 - ESSENTIAL (PRIMARY) HYPERTENSION Status: Chronic Qualifiers: Hypertension type: essential hypertension Qualified Code(s): I10 - Essential (primary) hypertension Comment: Resume home BP regimen, monitor clinical response (6) Bipolar 1 disorder Code(s): F31.9 - BIPOLAR DISORDER, UNSPECIFIED Status: Chronic Comment: Resume home regimen (7) Chronic hepatitis C Code(s): B18.2 - CHRONIC VIRAL HEPATITIS C Status: Chronic Qualifiers: (8) Fatty liver Code(s): K76.0 - FATTY (CHANGE OF) LIVER, NOT ELSEWHERE CLASSIFIED Status: Chronic Comment: chronic transaminitis (9) Hypothyroidism Code(s): E03.9 - HYPOTHYROIDISM, UNSPECIFIED Status: Chronic Qualifiers: Hypothyroidism type: unspecified Qualified Code(s): E03.9 - Hypothyroidism , unspecified Comment: Continue Levothyroxine 25mcg daily (10) Morbid obesity with BMI of 40.0-44.9, adult Code(s): E66.01 - MORBID (SEVERE) OBESITY DUE TO EXCESS CALORIES; Z68.41 - BODY MASS INDEX (BMI) 40.0-44.9, ADULT Status: Chronic (11) Transaminitis Code(s): R74.0 - NONSPEC ELEV OF LEVELS OF TRANSAMNS & LACTIC ACID DEHYDRGNSE Status: Chronic Comment: - Plan continue antibiotics, PT/OT, social insurance specialist Stable overall -: Continue Zosyn and Vancomycin -: Consult Gen surgery for potential I&D -: WCT for local care -: Pain control * AM lab: CMP
[2017-06-11] MEDS ORDERED: HYDROcodone/Acetaminophen 10/325 mg Tablet PO PRN (16:07)
[2017-06-11] MEDS ORDERED: Allopurinol 100 MG TAB PO SCH (16:30)
[2017-06-11] MEDS: cloNIDine 0.1 MG TAB PO SCH (19:42)
[2017-06-11] MEDS: DULoxetine 60 MG CAP PO SCH (19:43)
[2017-06-11] MEDS: OLANZapine 5 MG TAB PO SCH (19:46)
[2017-06-11] MEDS: risperiDONE 1 MG TAB PO SCH (19:46)
[2017-06-11] MEDS: Lisinopril 20 MG TAB PO SCH (19:53)
[2017-06-11] MEDS: tiZANidine HCl 4 MG TAB PO PRN (21:01)
[2017-06-12] MEDS: Piperacillin/Tazobactam 4.5 GM in Sodium Chloride 0.9% 100 ML IVPB SCH ×4 (02:44→20:21)
[2017-06-12] MEDS: HYDROcodone/Acetaminophen 10/325 mg Tablet PO PRN ×5 (04:15→21:18)
[2017-06-12] MEDS: Levothyroxine Sodium 25 MCG TAB PO SCH (04:15)
[2017-06-12 05:35] LABS: ALT (SGPT) 117 U/L (8-55); AST (SGOT) 46 U/L (5-34); Albumin 3.9 g/dL (3.5-5.0); Alkaline Phosphatase 173 U/L (40-150); Anion Gap 13 mmol/L (10-20); BUN (Urea Nitrogen) 9 mg/dL (7.0-18.7); Bilirubin, Total 0.5 mg/dL (0.2-1.2); Calc. Creatinine Clearance 153 mL/min (70-130); Carbon Dioxide 30 mmol/L (22-29); Chloride 99 mmol/L (98-107); Estimated GFR-MDRD 75; Globulin 3.3 g/dL (2.4-3.5); Glucose 273 mg/dL (70-105); Potassium 4.1 mmol/L (3.5-5.1); Protein, Total 7.2 g/dL (6.0-8.3); Sodium 138 mmol/L (136-145)
[2017-06-12] MEDS: HumaLOG 300 UNITS/3 ML VIAL SC PRN ×3 (06:20→19:05)
[2017-06-12] MEDS: Insulin Detemir 100 UNITS/ML 50 UNITS in Pre-Filled Syringe 1 EACH SC SCH (08:43)
[2017-06-12] MEDS: Famotidine 20 MG TAB PO SCH ×2 (08:44→20:22)
[2017-06-12] MEDS: cloNIDine 0.1 MG TAB PO SCH ×2 (08:45→20:22)
[2017-06-12] MEDS: Carvedilol 25 MG TAB PO SCH (08:45)
[2017-06-12] MEDS: Allopurinol 100 MG TAB PO SCH (08:45)
[2017-06-12] MEDS: Docusate 100 MG CAP PO SCH ×2 (08:45→20:23)
[2017-06-12] MEDS: clonazePAM 1 MG TAB PO SCH ×3 (08:45→20:23)
[2017-06-12] MEDS: Heparin 5,000 UNITS/ML VIAL SC SCH ×3 (08:46→20:24)
[2017-06-12] MEDS: Sodium Chloride 0.9% 1,000 ML IV SCH ×2 (08:51→22:30)
[2017-06-12] MEDS ORDERED: Liraglutide [Victoza 2-Pak] 1.8 MG SC SCH (09:00)
[2017-06-12] MEDS: Vancomycin HCl 1.5 GM in Sodium Chloride 0.9% 250 ML 300 ML IVPB SCH ×2 (09:49→21:51)
[2017-06-12] MEDS ORDERED: Morphine 4 MG/ML Carpuject SLOW IVP PRN (12:14)
--- NOTE | 2017-06-12 12:17 | PDOC.PN ---
- Subjective Encounter Start Date: 06/12/17 Encounter Start Time: 12:15 Subjective: complains of severe pain R foot - Objective MAR Reviewed: Yes Vital Signs & Weight: Vital Signs (12 hours) Temp Pulse Resp BP BP Pulse Ox 06/12/17 08:45 157/87 H 06/12/17 08:00 97.9 F 95 20 95 06/12/17 07:32 97.9 F 95 20 157/87 H 95 Weight Admit Weight 251 lb 5.231 oz Weight 251 lb 5.231 oz I&O: 06/11/17 06/12/17 06/13/17 06:59 06:59 06:59 Intake Total 900 240 Balance 900 240 Result Diagrams: 06/11/17 03:54 06/12/17 04:15 Additional Labs: Accuchecks 06/12/17 06/12/17 06/11/17 10:58 05:45 19:42 POC Glucose 344 H 231 H 360 H 06/11/17 16:15 POC Glucose 351 H Phys Exam - Physical Examination Neck: no JVD Respiratory: clear to auscultation bilateral Cardiovascular: RRR, no significant murmur Gastrointestinal: soft, non-tender, positive bowel sounds bandaged R foot Dx/Plan (1) Cellulitis and abscess of foot Code(s): L03.119 - CELLULITIS OF UNSPECIFIED PART OF LIMB; L02.619 - CUTANEOUS ABSCESS OF UNSPECIFIED FOOT Status: Acute Comment: ? subacute cellulitis, see #1 (2) Hyperglycemia due to type 2 diabetes mellitus Code(s): E11.65 - TYPE 2 DIABETES MELLITUS WITH HYPERGLYCEMIA Status: Acute Comment: Poorly controlled DM II, resume home Levemir 100u sc BID, ISS, Resume Victoza (3) Fatty liver Code(s): K76.0 - FATTY (CHANGE OF) LIVER, NOT ELSEWHERE CLASSIFIED Status: Chronic Comment: chronic transaminitis (4) Hypertension Code(s): I10 - ESSENTIAL (PRIMARY) HYPERTENSION Status: Chronic Qualifiers: Hypertension type: essential hypertension (5) Hypothyroidism Code(s): E03.9 - HYPOTHYROIDISM, UNSPECIFIED Status: Chronic Qualifiers: Hypothyroidism type: unspecified Qualified Code(s): E03.9 - Hypothyroidism , unspecified Comment: Continue Levothyroxine 25mcg daily - Plan cont iv antibx, wound care, selected home meds * .
[2017-06-12] MEDS: tiZANidine HCl 4 MG TAB PO PRN ×2 (12:33→20:33)
--- NOTE | 2017-06-12 13:36 | PQF ---
DATE: 06-12-17 ATTN: DR. JENY BRICENO Please exercise your independent, professional judgment in responding to the clarification form. Clinical indicators are provided on the bottom of this form for your review Please check appropriate box(es): [ ] Sepsis [ ] SIRS due to non-infectious process (please specify etiology) [ ] Other diagnosis [ x ] Unable to determine In addition, please specify: Present on Admission (POA): [ ] Yes [ ] No [ ] Unable to determine For continuity of documentation, please document condition throughout progress notes and discharge summary. Thank You. CLINICAL INDICATORS - SIGNS / SYMPTOMS / LABS H&P: CELLULITIS OF THE RIGHT HEEL. BLOOD CULTURES WERE NOT DRAWN. PATIENT STARTED ON VANCOMYCIN AND ZOSYN FOR A DIABETIC FOOT CELLULITIS LACTIC ACID: 06-10-17: 3.1, 3.3 PULSE: 06-10-17: 118, 111, 111, 104, 106 C-REACTIVE PROTEIN: 06-10-17: 4.19 RISK FACTORS: H&P: CELLULITIS OF THE RIGHT HEEL. BLOOD CULTURES WERE NOT DRAWN. PATIENT STARTED ON VANCOMYCIN AND ZOSYN FOR A DIABETIC FOOT CELLULITIS TREATMENTS: H&P: CELLULITIS OF THE RIGHT HEEL. BLOOD CULTURES WERE NOT DRAWN. PATIENT STARTED ON VANCOMYCIN AND ZOSYN FOR A DIABETIC FOOT CELLULITIS (MAR) IVF (This form is maintained as a part of the permanent medical record) 2014 [employer]. All Rights Reserved [email or web address] Office: [phone] JOELLE
[2017-06-12] MEDS ORDERED: Triple Antibiotic Oint 1 GM Packet TOP SCH (14:00)
[2017-06-12] MEDS: Insulin Detemir 100 UNITS/ML 100 UNITS in Pre-Filled Syringe 1 EACH SC SCH (20:20)
[2017-06-12] MEDS: Lisinopril 20 MG TAB PO SCH (20:22)
[2017-06-12] MEDS: DULoxetine 60 MG CAP PO SCH (20:22)
[2017-06-12] MEDS: OLANZapine 5 MG TAB PO SCH (20:23)
[2017-06-12] MEDS: risperiDONE 1 MG TAB PO SCH (20:24)
[2017-06-12] MEDS ORDERED: INSULIN DETEMIR 100 UNIT SC SCH (21:00)
[2017-06-12 21:27] LABS: Vancomycin, Trough 8.5 ug/mL
--- NOTE | 2017-06-12 23:51 | CON ---
DATE OF CONSULTATION: 06/12/2017 HISTORY OF PRESENT ILLNESS: 47-year-old female admitted on 06/10/2017 to Hospitalist Service for a r ight foot pain. X-rays obtained, did not reveal any bony changes. The patient states she bought chinyere e new shoes and about the past 1-2 weeks has been developing a blister. She is having severe pain. She is morbidly obese; diabetic; hypertension; and symptomatically has sleep apnea, although never yusuf teri had a sleep study; and has GERD. She has been admitted and placed on antibiotics. I evaluated her at bedside. Her right heel, mostly nonweightbearing, reveals a blister. There is raised skin. There is minimal cellulitis. PAST MEDICAL HISTORY: Diabetes mellitus type 2; hypertension; hypercholesterolemia; bipolar, schizop hrenic disability from that; symptomatic sleep apnea, although never had a sleep study; metabolic syn drome; morbid obesity; ysr-[id number]-xnyoauawx diabetes mellitus. TOBACCO: None. ALCOHOL: None. PAST SURGICAL HISTORY: Laparoscopic cholecystectomy, C-sections x3, 2 eye surgeries, 2 lumbar surger ies, carpal tunnel release, left total abdominal hysterectomy, unilateral salpingo-oophorectomy. She reports growth on her remaining ovary. She is single, but lives with her significant other. She is disabled due to her bipolar schizophrenia disease. She is followed Dr. Javon Stewart. HOME MEDICATIONS: Zyprexa, Risperdal, Tramadol, Humalog, hydrocodone 10/325, allopurinol, Protonix, Victoza, Levemir, tizanidine, clonidine, gabapentin, Cymbalta, carvedilol, clonazepam, levothyroxine. PHYSICAL EXAMINATION: GENERAL: The patient is morbidly obese, 251 pounds, 40 BMI. VITAL SIGNS: Temperature 97.9, 95, 157/87, respiratory rate 20. LUNGS: Clear to auscultation. CARDIAC: Regular rate and rhythm without murmur or gallop. ABDOMEN: Soft. EXTREMITIES: Palpable femoral and pedal pulses. On her right foot, the patient has a blister on the heel, nonweightbearing portion, has raised skin. There appears to be some purulent material, but th is is uncertain. LABORATORY DATA: White count 6, hemoglobin 12.6. Basic metabolic profile normal. Accu-Cheks 230-28 3. At the patient's bedside with alcohol prep, the blistered skin was removed and there was clear f luid. Skin is intact under this. There is no deep infection. Antibiotic ointment and Telfa applied . ASSESSMENT AND PLAN: 1. Right heel blister. There is no deep underlying infection. The patient does not need IV antibio tics. She can be converted to oral antibiotics for 5 days. She can wash the wound with soap and devante er. No bath or shower. Apply antibiotic ointment, Telfa, and a dressing. She should not wear the s hoes that caused the blister. 2. Metabolic syndrome. 3. Morbid obesity. 4. Diabetes mellitus type 2. 5. Hypertension. 6. Symptoms of sleep apnea. We will have sleep study. 7. Gastroesophageal reflux disease. 8. Schizophrenia, bipolar. At this point, I will see the patient in my office if she desires. I wi ll see her as needed at this hospitalization.
--- NOTE | 2017-06-12 23:57 | OP ---
PREOPERATIVE DIAGNOSIS: Right foot blister, nonweightbearing due to new shoes. POSTOPERATIVE DIAGNOSIS: Right foot blister, nonweightbearing due to new shoes. SURGEON: Dr. Gustabo Smith. ANESTHESIA: None. PROCEDURE IN DETAIL: At the patient's bedside, the right blister was excised sharply. The patient j ust had [place] orally. She was insistent on parenteral narcotic analgesics, but I told her that she d id not need that and we should not give that to her soon after taking the [place]. The patient did not have any pain or discomfort during the procedure, the raised nonattached skin was excised sharply. There was clear fluid beneath. There was an intact tissue beneath. There is no need for deeper debr idement. Telfa antibiotic ointment applied. At this point, I will see her as needed. Please call i f necessary. She can wash the wound with soap and water every day and apply antibiotic ointment, Tel fa.
[2017-06-13] MEDS: Piperacillin/Tazobactam 4.5 GM in Sodium Chloride 0.9% 100 ML IVPB SCH ×4 (02:02→21:59)
[2017-06-13] MEDS: HYDROcodone/Acetaminophen 10/325 mg Tablet PO PRN ×5 (05:09→22:15)
[2017-06-13] MEDS: Levothyroxine Sodium 25 MCG TAB PO SCH (05:09)
[2017-06-13] MEDS: Vancomycin HCl 1.5 GM in Sodium Chloride 0.9% 250 ML 300 ML IVPB SCH ×2 (05:09→14:50)
[2017-06-13] MEDS: Carvedilol 25 MG TAB PO SCH (08:23)
[2017-06-13] MEDS: Famotidine 20 MG TAB PO SCH ×2 (08:23→22:00)
[2017-06-13] MEDS: Allopurinol 100 MG TAB PO SCH (08:23)
[2017-06-13] MEDS: cloNIDine 0.1 MG TAB PO SCH ×2 (08:23→22:08)
[2017-06-13] MEDS: clonazePAM 1 MG TAB PO SCH ×3 (08:23→22:14)
[2017-06-13] MEDS: Docusate 100 MG CAP PO SCH ×2 (08:23→22:00)
[2017-06-13] MEDS: tiZANidine HCl 4 MG TAB PO PRN (08:27)
[2017-06-13] MEDS: Triple Antibiotic Oint 1 GM Packet TOP SCH (08:28)
[2017-06-13] MEDS: Heparin 5,000 UNITS/ML VIAL SC SCH ×3 (08:30→22:03)
[2017-06-13 08:37] VITALS: TEMP 97.6
--- NOTE | 2017-06-13 08:43 | PDOC.PN ---
- Subjective Encounter Start Date: 06/13/17 Encounter Start Time: 08:41 Subjective: foot still hurts - Objective MAR Reviewed: Yes Vital Signs & Weight: Vital Signs (12 hours) Temp Pulse Resp BP BP Pulse Ox 06/13/17 08:23 125/84 06/13/17 08:00 97.6 F 87 20 125/84 96 06/13/17 04:00 98.5 F 95 18 160/67 H 94 L 06/13/17 00:00 97.9 F 75 18 131/82 94 L Weight Admit Weight 251 lb 5.231 oz Weight 251 lb 5.231 oz I&O: 06/12/17 06/13/17 06/14/17 06:59 06:59 06:59 Intake Total 900 240 Balance 900 240 Result Diagrams: 06/11/17 03:54 06/12/17 04:15 Additional Labs: Accuchecks 06/13/17 06/12/17 06/12/17 04:33 19:21 16:24 POC Glucose 144 H 346 H 283 H 06/12/17 10:58 POC Glucose 344 H Phys Exam - Physical Examination Neck: no JVD Respiratory: clear to auscultation bilateral Cardiovascular: RRR, no significant murmur Gastrointestinal: soft, positive bowel sounds bandaged right foot Dx/Plan (1) Cellulitis and abscess of foot Code(s): L03.119 - CELLULITIS OF UNSPECIFIED PART OF LIMB; L02.619 - CUTANEOUS ABSCESS OF UNSPECIFIED FOOT Status: Acute Comment: ? subacute cellulitis, see #1 (2) Hyperglycemia due to type 2 diabetes mellitus Code(s): E11.65 - TYPE 2 DIABETES MELLITUS WITH HYPERGLYCEMIA Status: Acute Comment: Poorly controlled DM II, resume home Levemir 100u sc BID, ISS, Resume Victoza (3) Fatty liver Code(s): K76.0 - FATTY (CHANGE OF) LIVER, NOT ELSEWHERE CLASSIFIED Status: Chronic Comment: chronic transaminitis (4) Hypertension Code(s): I10 - ESSENTIAL (PRIMARY) HYPERTENSION Status: Chronic Qualifiers: Hypertension type: essential hypertension (5) Hypothyroidism Code(s): E03.9 - HYPOTHYROIDISM, UNSPECIFIED Status: Chronic Qualifiers: Hypothyroidism type: unspecified Qualified Code(s): E03.9 - Hypothyroidism , unspecified Comment: Continue Levothyroxine 25mcg daily - Plan await C&S -: cont iv antibx -: cont wound care -: po analgesics * .
[2017-06-13] MEDS: Insulin Detemir 100 UNITS/ML 100 UNITS in Pre-Filled Syringe 1 EACH SC SCH ×2 (09:02→22:09)
[2017-06-13] MEDS: Sodium Chloride 0.9% 1,000 ML IV SCH (14:50)
[2017-06-13] MEDS: HumaLOG 300 UNITS/3 ML VIAL SC PRN (16:09)
[2017-06-13] MEDS ORDERED: OLANZapine 5 MG TAB PO SCH (21:00)
[2017-06-13 21:32] LABS: Vancomycin, Trough 18.3 ug/mL
[2017-06-13] MEDS: DULoxetine 60 MG CAP PO SCH (22:00)
[2017-06-13] MEDS: OLANZapine 5 MG TAB PO SCH (22:01)
[2017-06-13] MEDS: risperiDONE 1 MG TAB PO SCH (22:02)
[2017-06-13] MEDS: Lisinopril 20 MG TAB PO SCH (22:08)
[2017-06-13] MEDS ORDERED: Vancomycin HCl 1.25 GM in Sodium Chloride 0.9% 250 ML 250 ML IVPB SCH (22:30)
[2017-06-14] MEDS: Piperacillin/Tazobactam 4.5 GM in Sodium Chloride 0.9% 100 ML IVPB SCH ×2 (02:13→09:32)
[2017-06-14] MEDS: Sodium Chloride 0.9% 1,000 ML IV SCH (02:13)
[2017-06-14] MEDS: HYDROcodone/Acetaminophen 10/325 mg Tablet PO PRN ×3 (02:13→10:45)
[2017-06-14] MEDS ORDERED: Vancomycin HCl 1.25 GM in Sodium Chloride 0.9% 250 ML 250 ML IVPB SCH (06:00)
[2017-06-14] MEDS: Levothyroxine Sodium 25 MCG TAB PO SCH (06:31)
[2017-06-14 08:34] VITALS: BP 134/80
--- NOTE | 2017-06-14 09:21 | PDOC.PN ---
- Subjective Encounter Start Date: 06/14/17 Encounter Start Time: 09:19 Subjective: mild drainage from wound site - Objective MAR Reviewed: Yes Vital Signs & Weight: Vital Signs (12 hours) Temp Pulse Resp BP BP Pulse Ox 06/14/17 08:00 97.6 F 94 20 134/80 93 L 06/13/17 22:08 132/74 Weight Admit Weight 251 lb 5.231 oz Weight 251 lb 5.231 oz I&O: 06/13/17 06/14/17 06/15/17 06:59 06:59 06:59 Intake Total 240 480 Balance 240 480 Result Diagrams: 06/11/17 03:54 06/12/17 04:15 Additional Labs: Accuchecks 06/14/17 06/13/17 06/13/17 05:20 20:41 16:05 POC Glucose 179 H 312 H 353 H 06/13/17 11:36 POC Glucose 227 H Phys Exam - Physical Examination Neck: no JVD Respiratory: clear to auscultation bilateral Cardiovascular: RRR, no significant murmur Gastrointestinal: soft, non-tender bandaged R foot Dx/Plan (1) Cellulitis and abscess of foot Code(s): L03.119 - CELLULITIS OF UNSPECIFIED PART OF LIMB; L02.619 - CUTANEOUS ABSCESS OF UNSPECIFIED FOOT Status: Acute Comment: ? subacute cellulitis, see #1 (2) Hyperglycemia due to type 2 diabetes mellitus Code(s): E11.65 - TYPE 2 DIABETES MELLITUS WITH HYPERGLYCEMIA Status: Acute Comment: Poorly controlled DM II, resume home Levemir 100u sc BID, ISS, Resume Victoza (3) Fatty liver Code(s): K76.0 - FATTY (CHANGE OF) LIVER, NOT ELSEWHERE CLASSIFIED Status: Chronic Comment: chronic transaminitis (4) Hypertension Code(s): I10 - ESSENTIAL (PRIMARY) HYPERTENSION Status: Chronic Qualifiers: Hypertension type: essential hypertension (5) Hypothyroidism Code(s): E03.9 - HYPOTHYROIDISM, UNSPECIFIED Status: Chronic Qualifiers: Hypothyroidism type: unspecified Qualified Code(s): E03.9 - Hypothyroidism , unspecified Comment: Continue Levothyroxine 25mcg daily - Plan DC on omnicef, home meds * .
[2017-06-14] MEDS: Allopurinol 100 MG TAB PO SCH (09:31)
[2017-06-14] MEDS: Famotidine 20 MG TAB PO SCH (09:31)
[2017-06-14] MEDS: cloNIDine 0.1 MG TAB PO SCH (09:31)
[2017-06-14] MEDS: Docusate 100 MG CAP PO SCH (09:32)
[2017-06-14] MEDS: Carvedilol 25 MG TAB PO SCH (09:32)
[2017-06-14] MEDS: Heparin 5,000 UNITS/ML VIAL SC SCH (09:33)
[2017-06-14] MEDS: Triple Antibiotic Oint 1 GM Packet TOP SCH (09:33)
--- NOTE | 2017-06-14 10:06 | DIS ---
TRANSFER OF CARE NOTE PRIMARY CARE PROVIDER: Dr. Noah Stewart DATE OF ADMISSION: 06/10/2017 DATE OF DISCHARGE: 06/14/2017 DISCHARGE DISPOSITION: Discharged home. FINAL DIAGNOSES: 1. Cellulitis/blister on left foot. 2. Type 2 diabetes. 3. Bipolar 1 disorder. 4. Chronic hepatitis C. 5. Chronic pain syndrome. 6. Hypertension. 7. Hypothyroidism. DISCHARGE MEDICATIONS: Omnicef 300 mg p.o. b.i.d. for 10 days. Triple antibiotic ointment after was candido foot with wound daily, levothyroxine 25 mcg a day, clonazepam 2 mg 3 times a day, Coreg 6.25 mg twice a day, Cymbalta 120 mg p.o. at bedtime, gabapentin 600 mg 3 times a day, clonidine 0.3 mg twice a day, tizanidine 8 mg p.o. t.i.d. p.r.n., Levemir FlexPen 100 units subcu b.i.d., Victoza 1.8 mg zeng bcutaneously daily, Protonix 40 mg a day, allopurinol 100 mg a day, hydrocodone 10/325 one every 6 ho urs as needed for pain, tramadol 300 mg p.o. daily, Risperdal 1 mg at bedtime, Zyprexa 20 mg at bedti me. ALLERGIES: TORADOL, STADOL. PENDING AT TIME OF DISCHARGE: Blood cultures are negative at 48 hours. Bacterial culture of wound s hows non-hemolytic strep. HOSPITAL COURSE: The patient admitted to [facility] to [facility] with foot pain. She had a silver dollar sized round wound on her right foot with some erythema. W cynthia count was normal at 7.3. The patient had a history of uncontrolled diabetes, uncontrolled hyper tension. She was placed in the hospital on IV antibiotics. Dr. Gustabo Smith was consulted. At [facility] on 06/12/2017, a blister was excised. There was clear fluid, intact tissue, no need for debrid ement. She was placed on antibiotic ointment after soap and water wash every day. Discussed with Dr Meli Smith, she is fine to go home. She had 2 CBCs neither one had a leukocytosis. Her blood sugars w ere elevated, she was placed on Accu-Cheks, sliding scale. At the time of discharge her blood sugar has come down to 179. She is being discharged on home medicines, Omnicef 300 mg twice a day and loca l wound care on her foot. I have examined her foot today, it is a silver dollar sized round blister with a clean base and no exudative discharge. She has been requested to see her primary care provide r, Dr. Stewart in 7 days. She will see Dr. Smith for wound follow up in 2-3 weeks.
[2017-06-14] MEDS: Insulin Detemir 100 UNITS/ML 100 UNITS in Pre-Filled Syringe 1 EACH SC SCH (10:45)
[2017-06-14] MEDS: clonazePAM 1 MG TAB PO SCH (10:48)
--- NOTE | 2017-06-17 12:37 | EKG ---
Test Reason : DIAGNOSING PURPOSES Blood Pressure : / mmHG Vent. Rate : 119 BPM Atrial Rate : 119 BPM P-R Int : 126 ms QRS Dur : 086 ms QT Int : 330 ms P-R-T Axes : 031 072 028 degrees QTc Int : 464 ms Sinus tachycardia Otherwise normal ECG Confirmed by KAM PABLO, BRIEN (12), general maintenance helper DEON BAXTER ([id number]) on 06/17/2017 12:36:05 PM Referred By: Confirmed By:BRIEN HUMPHREY MD
== END 2017-06-14 11:50 | disposition home or self-care (01) | DRG 638 ==
LOC: ERS 16:02 → T4-A 18:38
PROVIDERS: ADMIT Internal Medicine; ATTEND Internal Medicine
PROC: 0HBMXZZ Excision of Right Foot Skin, External Approach (ICD-10-PCS; principal; 2017-06-12)
DX: E11.621 Type 2 diabetes mellitus with foot ulcer (principal); L03.115 Cellulitis of right lower limb; L97.421 Non-pressure chronic ulcer of left heel and midfoot limited to breakdown of skin; E87.2 Acidosis; E11.65 Type 2 diabetes mellitus with hyperglycemia; Z68.41 Body mass index [BMI] 40.0-44.9, adult; L02.619 Cutaneous abscess of unspecified foot; K76.0 Fatty (change of) liver, not elsewhere classified; F20.9 Schizophrenia, unspecified; Z86.73 Personal history of transient ischemic attack (TIA), and cerebral infarction without residual deficits; I10 Essential (primary) hypertension; F31.9 Bipolar disorder, unspecified; Z88.8 Allergy status to other drugs, medicaments and biological substances; B18.2 Chronic viral hepatitis C; E03.9 Hypothyroidism, unspecified; Z79.4 Long term (current) use of insulin; E66.01 Morbid (severe) obesity due to excess calories; K21.9 Gastro-esophageal reflux disease without esophagitis; E78.00 Pure hypercholesterolemia, unspecified
CPT/HCPCS: 36415; 36416; 80053; 80202; 83605; 85025; 85652; 86140; 87040; 87070; 87077; 87205; 93005; 96365; A4216; J1644; J1815; J2185; J2543; J3370; J7050

== ENCOUNTER 2017-06-23 15:54 | Inpatient (IN) | payer OTHER ==
[2017-06-23 17:08] LABS: #Basophils 0.1 thou/uL (0.0-0.2); #Eosinphils 0.1 thou/uL (0.0-0.7); #Lymphocytes 3.3 thou/uL (1.20-3.40); #Monocytes 0.8 thou/uL (0.11-0.59); #Neutrophils 6.6 thou/uL (1.40-6.50); %Eosinophils 0.9 % (0.0-10.0); %Lymphocytes 29.9 % (21.0-51.0); %Monocytes 7.5 % (0.0-10.0); %Neutrophils 60.7 % (42.0-75.0); Mean Corpuscular HGB CONC 34.3 g/dL (32.0-36.0); Mean Corpuscular Hemoglobin 29.8 pg (27.0-31.0); Mean Corpuscular Volume 86.9 fl (81.0-99.0); Mean Platelet Volume 8.3 fL (7.4-10.4); Platelet Count 296 thou/uL (130-400); RBC Distribution Width 13.4 % (11.5-14.5); Red Blood Cell (RBC) Count 5.37 mill/uL (4.20-5.40); White Blood Cell (WBC) Count 10.9 thou/uL (4.8-10.8)
[2017-06-23 17:28] LABS: ALT (SGPT) 54 U/L (8-55); AST (SGOT) 38 U/L (5-34); Albumin 4.7 g/dL (3.5-5.0); Alkaline Phosphatase 131 U/L (40-150); Anion Gap 19 mmol/L (10-20); BUN (Urea Nitrogen) 18 mg/dL (7.0-18.7); Bilirubin, Total 0.5 mg/dL (0.2-1.2); Calc. Creatinine Clearance 0 mL/min (70-130); Calcium 10.6 mg/dL (7.8-10.44); Carbon Dioxide 21 mmol/L (22-29); Chloride 98 mmol/L (98-107); Estimated GFR-MDRD 80; Globulin 3.9 g/dL (2.4-3.5); Glucose 239 mg/dL (70-105); Potassium 3.9 mmol/L (3.5-5.1); Protein, Total 8.6 g/dL (6.0-8.3); Sodium 134 mmol/L (136-145)
--- NOTE | 2017-06-23 17:36 | RAD ---
RIGHT FOOT THREE VIEWS: 06/23/17 COMPARISON: 06/10/17. HISTORY: Right foot ulcer. FINDINGS: Stable spurring of the plantar calcaneus. Joint spaces are preserved. Lisfranc alignment is maintaine d. No fracture. No cortical irregularity or periosteal reaction. No radiographic evidence of osteomyelitis. IMPRESSION: Unremarkable three views right foot. POS: [facility]
[2017-06-23] MEDS ORDERED: Dextrose 5% in Water 1,000 ML IV PRN (17:47)
[2017-06-23] MEDS ORDERED: Dextrose 50% Abboject 50 ML SYRINGE SLOW IVP PRN (17:47)
[2017-06-23] MEDS ORDERED: Vancomycin HCl 1.25 GM in Sodium Chloride 0.9% 250 ML 250 ML IVPB SCH (18:00)
[2017-06-23] MEDS ORDERED: Morphine 4 MG/ML VIAL ONE (18:03)
[2017-06-23] MEDS ORDERED: Milk Of Magnesia 30 ML UDCUP PO PRN (18:58)
[2017-06-23] MEDS ORDERED: Ondansetron ODT 4 MG TAB PO PRN (18:58)
[2017-06-23] MEDS ORDERED: Acetaminophen 325 MG TAB PO PRN (18:58)
[2017-06-23] MEDS ORDERED: Ondansetron HCl/PF 4 MG/2 ML Vial IVP PRN (18:58)
[2017-06-23] MEDS ORDERED: HYDROcodone/Acetaminophen 10/325 mg Tablet PO PRN (20:47)
[2017-06-23 20:50] VITALS: BMI 41.0
[2017-06-23] MEDS ORDERED: traMADol HCl 50 MG TAB PO PRN (21:16)
[2017-06-23 21:20] LABS: Lactic Acid 3.2 mmol/L (0.5-2.2)
[2017-06-23] MEDS ORDERED: Vancomycin HCl 1.75 GM in Sodium Chloride 0.9% 500 ML IVPB SCH (21:30)
[2017-06-23] MEDS: Morphine 2 MG/ML SYRINGE SLOW IVP PRN (21:38)
[2017-06-23] MEDS: DULoxetine 60 MG CAP PO SCH (21:42)
[2017-06-23] MEDS: clonazePAM 1 MG TAB PO SCH (21:42)
[2017-06-23] MEDS: cloNIDine 0.3 MG TAB PO SCH (21:43)
[2017-06-23] MEDS: Gabapentin 300 MG CAP PO SCH (21:43)
[2017-06-23] MEDS: Docusate 100 MG CAP PO SCH (21:43)
[2017-06-23] MEDS: Carvedilol 6.25 MG TAB PO SCH (21:43)
[2017-06-23] MEDS: Heparin 5,000 UNITS/ML VIAL SC SCH (21:46)
--- NOTE | 2017-06-23 22:23 | HP ---
PRIMARY CARE PHYSICIAN: Dr. Stewart. PRESENTING COMPLAINT: Pain in my right foot. HISTORY OF PRESENT ILLNESS: Ms. Juanis Hurley is a 47-year-old female who has a past medical history of hypertension, diabetes mellitus, bipolar disorder, schizophrenia, hyperlipidemia. She was admitted a couple of weeks ago due to right foot blister and she was discharged on p.o. antibiotics. While she was in hospital, she was evaluated by General Surgery, who found no indication for debridement; however, she reports she has been taking her medication that I prescribed, has 2 doses left where her foot has become altered with some serous drainage in it. She also reports fever and chills. She has no nausea, vomiting, diarrhea, chest pain, shortness of breath. PAST MEDICAL HISTORY: Type 2 diabetes mellitus, CVA, hypertension, hyperlipidemia, bipolar disorder, schizophrenia. PAST SURGICAL HISTORY: x2, right eye surgery, cholecystectomy, hysterectomy, left carpal tunnel surgery, back surgeries. ALLERGIES: TORADOL, STADOL and BUTORPHANOL. FAMILY HISTORY: Significant cardiac disease in her mother, CAD, but also had an AR at 42 and sister had a brain aneurysm and in her 40s. SOCIAL HISTORY: Denies alcohol, drugs or smoking. PSYCHIATRIC HISTORY: Schizophrenia, bipolar disorder. REVIEW OF SYSTEMS: A 12-point review of systems negative except as stated in HPI. PHYSICAL EXAMINATION: VITAL SIGNS: Stable. GENERAL: Mild distress from pain, sitting comfortably in bed. HEENT: Normocephalic, atraumatic. Not pale, anicteric. Moist mucous membranes. PERRLA, EOMI. NECK: Supple, full range of movement. RESPIRATORY: Vesicular breath sounds bilaterally. No wheezes, rales or rhonchi. CARDIOVASCULAR: S1 and S2, only slightly tachycardic. No murmurs, rubs or gallops. ABDOMEN: Soft, obese, bowel sounds present, nontender, nondistended. No hepatosplenomegaly. MUSCULOSKELETAL: Right heel with an approximately 4 x 4 inch ulcer with slight drainage. Moves all extremities spontaneously. SKIN: Ulcers as described above. No other lesions are appreciated. NEUROLOGIC: Alert and oriented to time, place and person. No focal deficit. PSYCHIATRIC: Normal mood and affect. LABORATORY DATA: Mild leukocytosis of 10.9. CBC otherwise unremarkable. Chemistry with sodium of 134, lactic acid of 3.1, glucose 239. CRP 1.39. IMAGING: She had a foot x-ray, which did not reveal any signs of osteomyelitis on three views. ASSESSMENT AND PLAN: 1. Diabetic foot ulcer on the right. The patient has nonhealing ulcer, which has been failed out in an outpatient treatment with antibiotics. Blood cultures have been taken, ESR, CRP and will start on vancomycin and ceftriaxone. We will follow up on blood cultures. Obtain an MRI of the foot to rule out osteomyelitis and get the General Surgery consult for possible debridement. 2. Type 2 diabetes mellitus, uncontrolled. We will resume home medications when confirmed, placed on diabetic diet, sliding scale insulin, fingerstick before meals at bedtime, hypoglycemic protocol and obtain a hemoglobin A1c. 3. Hypertension. Blood pressure is relatively well controlled on outpatient basis. She takes carvedilol, clonidine. We will resume once confirmed. 4. Bipolar disorder. We will continue home medication. 5. Hypothyroidism. We will continue home medications. 6. Hyperlipidemia. Not on statins. 7. Deep venous thrombosis prophylaxis, subcutaneous heparin. 8. Code status: FULL CODE. MTDD
[2017-06-23] MEDS ORDERED: risperiDONE 1 MG TAB PO SCH (22:30)
[2017-06-23] MEDS ORDERED: OLANZapine 5 MG TAB PO SCH (22:30)
[2017-06-23] MEDS: tiZANidine HCl 4 MG TAB PO PRN (22:48)
[2017-06-24] MEDS: Morphine 2 MG/ML SYRINGE SLOW IVP PRN ×5 (05:29→22:30)
[2017-06-24] MEDS: Carvedilol 6.25 MG TAB PO SCH ×2 (05:29→21:32)
[2017-06-24] MEDS: Vancomycin HCl 1.25 GM in Sodium Chloride 0.9% 250 ML 250 ML IVPB SCH ×3 (05:30→22:35)
[2017-06-24] MEDS: Levothyroxine Sodium 25 MCG TAB PO SCH (05:30)
[2017-06-24] MEDS: HumaLOG 300 UNITS/3 ML VIAL SC PRN ×3 (05:30→16:25)
[2017-06-24 05:53] LABS: #Eosinphils 0.1 thou/uL (0.0-0.7); #Lymphocytes 2.9 thou/uL (1.20-3.40); #Monocytes 0.9 thou/uL (0.11-0.59); #Neutrophils 5.3 thou/uL (1.40-6.50); %Basophils 0.5 % (0.0-1.0); %Eosinophils 1.2 % (0.0-10.0); %Lymphocytes 30.9 % (21.0-51.0); %Monocytes 9.7 % (0.0-10.0); %Neutrophils 57.6 % (42.0-75.0); Hemoglobin 14.2 g/dL (12.0-16.0); Mean Corpuscular HGB CONC 33.7 g/dL (32.0-36.0); Mean Corpuscular Hemoglobin 29.6 pg (27.0-31.0); Mean Corpuscular Volume 87.7 fl (81.0-99.0); Mean Platelet Volume 8.2 fL (7.4-10.4); Platelet Count 273 thou/uL (130-400); RBC Distribution Width 13.4 % (11.5-14.5); White Blood Cell (WBC) Count 9.2 thou/uL (4.8-10.8)
[2017-06-24 06:04] LABS: Anion Gap 15 mmol/L (10-20); BUN (Urea Nitrogen) 15 mg/dL (7.0-18.7); Calc. Creatinine Clearance 166 mL/min (70-130); Calcium 9.5 mg/dL (7.8-10.44); Carbon Dioxide 23 mmol/L (22-29); Chloride 102 mmol/L (98-107); Estimated GFR-MDRD 82; Glucose 259 mg/dL (70-105); Potassium 3.7 mmol/L (3.5-5.1); Sodium 136 mmol/L (136-145)
[2017-06-24] MEDS: Gabapentin 300 MG CAP PO SCH ×3 (08:41→21:34)
[2017-06-24] MEDS: cefTRIAXone\\ROCEPHIN 1 GM, Syringe 0.4 ML in Sterile Water 9.6 ML SLOW IVP SCH (08:41)
[2017-06-24] MEDS: clonazePAM 1 MG TAB PO SCH ×3 (08:42→21:32)
[2017-06-24] MEDS: Allopurinol 100 MG TAB PO SCH (08:42)
[2017-06-24] MEDS: cloNIDine 0.3 MG TAB PO SCH ×2 (08:46→21:33)
[2017-06-24] MEDS: Heparin 5,000 UNITS/ML VIAL SC SCH ×3 (08:47→22:06)
[2017-06-24] MEDS: Docusate 100 MG CAP PO SCH ×2 (08:47→21:33)
[2017-06-24] MEDS ORDERED: cefTRIAXone\\ROCEPHIN 1 GM in Sodium Chloride 0.9% 100 ML IVPB SCH (09:00)
[2017-06-24] MEDS ORDERED: Non-Formulary Item 1 EACH (Tramadol Hcl [Tramadol Hcl Er] 300 MG) PO SCH (09:00)
--- NOTE | 2017-06-24 10:46 | MRI ---
MRI OF THE RIGHT HINDFOOT WITH AND WITHOUT IV CONTRAST: Date: 06/24/17 PROVIDED CLINICAL HISTORY: Diabetic ulcer. FINDINGS: There is mild, noncircumscribed signal alteration on postcontrast sequences involving the cutaneous t issues and subcutaneous adipose layer at the medial aspect of the posterior calcaneal region. There i s no evidence for a circumscribed fluid collection to suggest soft tissue abscess. There is no region al muscular signal alteration to suggest infectious myositis. There is patchy signal alteration on fl uid sensitive sequences involving intrinsic foot musculature typical for diabetic patients. There is no regional marrow signal alteration to suggest osteomyelitis. No regional joint effusion is evident. No significant regional tenosynovial fluid is evident. The anterior extensor, medial flexor, peroneal, and Achilles tendons appear intact. Medial and latera l ankle ligaments appear normal. IMPRESSION: No evidence for osteomyelitis or soft tissue fluid collection to suggest abscess. POS: [facility]
--- NOTE | 2017-06-24 13:56 | CON ---
DATE OF CONSULTATION: 06/24/2017 REQUESTING PHYSICIAN: Dr. Carlisle. CHIEF COMPLAINT: Right foot pain. HISTORY OF PRESENT ILLNESS: The patient is a 47-year-old woman, who variously described as being vijaya gnosed with bipolar disorder and schizophrenia, who is diabetic. About 2-3 weeks ago, she was in the hospital with complaints of pain to her right foot after she rubbed a large blister on her right urmila l with her foot. Apparently, General Surgery was consulted about debriding her wound, and there did not seem to be much of an indication to do so. She was apparently sent out with oral antibiotics, bu t since then the blister is unroofed and the underlying exposed raw tissue is still quite painful and she presented to the hospital again and was admitted and started on broad-spectrum antibiotics. PAST MEDICAL HISTORY: Significant for diabetes, hypertension, hyperlipidemia, and her psychiatric di sorder. ALLERGIES: She reports allergies to TORADOL, STADOL, BUTORPHANOL. HOME MEDICATIONS: Listed as Victoza 1.8 mg subcu daily, Levemir 100 units subcu b.i.d., sliding scal e insulin, clonidine 0.3 mg b.i.d., Coreg 6.25 mg b.i.d., Protonix 40 mg a day, Synthroid 25 mcg a da y, Neurontin 600 mg t.i.d., Cymbalta 120 mg at bedtime, Zyprexa 20 mg at bedtime, Risperdal 1 mg at b edtime, clonazepam 2 mg t.i.d., tizanidine 8 mg t.i.d. p.r.n., tramadol 300 mg daily, Triple Antibiot ic ointment p.r.n., Panora 10, allopurinol 100 mg a day, and she is completing a course of Omnicef 300 mg b.i.d. She has been started on Rocephin and vancomycin. SOCIAL HISTORY: She denies smoking. She reported fever and chills, but no nausea or vomiting. PHYSICAL EXAMINATION: GENERAL: On exam, she is slightly anxious. VITAL SIGNS: Heart rate has ranged from the 70s to the low 100s, blood pressure has been from about 100/70 to about 155/90. She is 5 feet 6 and weighs 254 pounds. EXTREMITIES: She has about a 4 cm area on the medial aspect of her right heel where a blister was un roofed, about half of that area is occupied by granulation tissue that has a little bit of fibrinous exudate on it that is moist and about a half is occupied by an area soda drier feeder that is forming some eschar . There is no fluctuance. There are no surrounding cellulitic changes. There is no streaking and t he dorsalis pedis pulses bounding. LABORATORY DATA: On laboratory exam, her white count was 10.9 on admission yesterday afternoon, and this morning, it is 9.2; hemoglobin was 16.0 on admission and is 14.2 this morning. Her electrolytes were normal. Her BUN and creatinine were normal. Her glucoses have been in the 240-260 range. Her LFTs were normal. A wound swab showed no white cells and no organisms yet, and blood cultures on ad mission, no growth at about 12 hours. ASSESSMENT AND PLAN: I really do not see anything to debride here even though the patient acts despe rate to have something cut on to make it feel better. The MRI and the plain films of the foot showed the expected subtle changes of edema, but no evidence to suggest osteomyelitis or abscess clinically . This is just a large blister that is unroofed and has not completely healed yet.
--- NOTE | 2017-06-24 15:37 | PDOC.PN ---
- Subjective Encounter Start Date: 06/24/17 Encounter Start Time: 15:41 Subjective: Still c/o pain R heel -: No acute events overnight -: No fevers or other sign of sytemic infection - Objective MAR Reviewed: Yes Vital Signs & Weight: Vital Signs (12 hours) Temp Pulse Resp BP BP Pulse Ox 06/24/17 11:31 97.5 F L 107 H 18 154/94 H 95 06/24/17 08:46 128/85 06/24/17 08:00 97.5 F L 74 16 102/57 L 97 06/24/17 05:29 135/82 06/24/17 04:00 97.7 F 101 H 20 135/82 97 Result Diagrams: 06/24/17 05:10 06/24/17 05:10 Additional Labs: Accuchecks 06/24/17 06/24/17 10:50 04:46 POC Glucose 268 H 234 H Phys Exam - Physical Examination Constitutional: NAD HEENT: PERRLA, moist MMs, sclera anicteric Neck: no JVD, supple, full ROM Respiratory: no wheezing, no rales, no rhonchi, clear to auscultation bilateral Cardiovascular: RRR, no significant murmur, no rub Gastrointestinal: soft, non-tender, no distention, positive bowel sounds Musculoskeletal: no edema, pulses present R diabetic foot ulcer at heel Neurological: non-focal, moves all 4 limbs Psychiatric: normal affect, A&O x 3 Skin: no rash, normal turgor Dx/Plan (1) DM foot ulcer Code(s): E11.621 - TYPE 2 DIABETES MELLITUS WITH FOOT ULCER; L97.509 - NON- PRESSURE CHRONIC ULCER OTH PRT UNSP FOOT W UNSP SEVERITY Status: Acute Qualifiers: Diabetic foot ulcer location: heel Diabetes mellitus type: type 2 Laterality: right Non-pressure ulcer stage: limited to breakdown of skin Qualified Code(s): E11.621 - Type 2 diabetes mellitus with foot ulcer; L97.411 - Non-pressure chronic ulcer of right heel and midfoot limited to breakdown of skin; L97.411 - Non-pressure chronic ulcer of right heel and midfoot limited to breakdown of skin; L97.411 - Non-pressure chronic ulcer of right heel and midfoot limited to breakdown of skin; L97.411 - Non-pressure chronic ulcer of right heel and midfoot limited to breakdown of skin Comment: Continue Vanc + Ceftriaxone. f/u cultures. MRI negative for osteomyelitis. Ensure pain control. Gen surgery evaluated, no intervention. (2) DM type 2 (diabetes mellitus, type 2) Status: Chronic Qualifiers: Diabetes mellitus parts counterman insulin use: with parts counterman use Diabetes mellitus complication status: with neurologic complications Diabetes mellitus complication detail: with polyneuropathy Qualified Code(s): E11.42 - Type 2 diabetes mellitus with diabetic polyneuropathy; Z79.4 - [facility] (current) use of insulin; Z79.4 - [facility] (current) use of insulin; Z79.4 - [facility] ( current) use of insulin; Z79.4 - buttermaker (current) use of insulin Comment: Poor control likely 2/2 nonadherence to therapy. Achieving better control in hospital. (3) Hypertension Code(s): I10 - ESSENTIAL (PRIMARY) HYPERTENSION Status: Chronic Qualifiers: Comment: Controlled. Resumed on home BP regimen. (4) Hypothyroidism Code(s): E03.9 - HYPOTHYROIDISM, UNSPECIFIED Status: Chronic Qualifiers: Hypothyroidism type: unspecified Qualified Code(s): E03.9 - Hypothyroidism , unspecified Comment: Continue Levothyroxine. - Plan cont current plan of care, continue antibiotics IV antibiotics for today. Likely d/c tomorrow. Wound care clinic f/u * . Review of Systems - Medications/Allergies Allergies/Adverse Reactions: Allergies Allergy/AdvReac Type Severity Reaction Status Date / Time butorphanol tartrate Allergy Severe Verified 11/03/16 16:47 [From Stadol] ketorolac tromethamine Allergy Intermediate Verified 11/03/16 16:47 [From Toradol] Medications: Current Medications Acetaminophen (Tylenol) 650 mg PO Q4H PRN PRN Reason: Headache/Fever or Pain Hydrocodone Bitart/Acetaminophen (Starks 10/325) 1 tab PO Q6H PRN PRN Reason: Pain Allopurinol (Zyloprim) 100 mg PO DAILY [facility] Last Admin: 06/24/17 08:42 Dose: 100 mg Carvedilol (Coreg) 6.25 mg PO BID [facility] Last Admin: 06/24/17 05:29 Dose: 6.25 mg Clonazepam (Klonopin) 2 mg PO TID [facility] Last Admin: 06/24/17 08:42 Dose: 2 mg Clonidine (Catapres) 0.3 mg PO BID [facility] Last Admin: 06/24/17 08:46 Dose: 0.3 mg Dextrose/Water (Dextrose 50%) 25 gm SLOW IVP PRN PRN PRN Reason: Hypoglycemia Docusate Sodium (Colace) 100 mg PO BID [facility] Last Admin: 06/24/17 08:47 Dose: Not Given Duloxetine HCl (Cymbalta) 120 mg PO HS [facility] Last Admin: 06/23/17 21:42 Dose: 120 mg Gabapentin (Neurontin) 600 mg PO TID [facility] Last Admin: 06/24/17 08:41 Dose: 600 mg Glucagon (Glucagon) 1 mg IM PRN PRN PRN Reason: Hypoglycemia Heparin Sodium (Porcine) (Heparin) 5,000 units SC TID [facility] Last Admin: 06/24/17 08:47 Dose: Not Given Dextrose/Water (D5w) 1,000 mls @ 0 mls/hr IV .Q0M PRN; As Directed PRN Reason: Hypoglycemia Ceftriaxone Sodium 1 gm/ (Syringe 0.4 ml/ Sterile Water) 10 mls @ 120 mls/hr SLOW IVP Q24HR [facility] Last Admin: 06/24/17 08:41 Dose: 10 mls Vancomycin HCl 1.25 gm/ Sodium (Chloride) 250 mls @ 166.667 mls/hr IVPB Q8HR [facility] Last Admin: 06/24/17 13:10 Dose: 250 mls Insulin Human Lispro (Humalog) 0 units SC .MODERATE SLIDING SC PRN PRN Reason: Moderate Correctional Scale Last Admin: 06/24/17 11:32 Dose: 6 unit Lactulose (Lactulose) 20 gm PO DAILYPRN PRN PRN Reason: Constipation Levothyroxine Sodium (Synthroid) 25 mcg PO 0600 [facility] Last Admin: 06/24/17 05:30 Dose: 25 mcg Magnesium Hydroxide (Milk Of Magnesium) 30 ml PO DAILYPRN PRN PRN Reason: Constipation Miscellaneous Medication (Pharmacy To Dose) 0 each IVPB ASDIR [facility] Morphine Sulfate (Morphine) 2 mg SLOW IVP Q4H PRN PRN Reason: Severe Pain (7-10) Last Admin: 06/24/17 10:15 Dose: 2 mg Ondansetron HCl (Zofran Odt) 4 mg PO Q6H PRN PRN Reason: Nausea/Vomiting Ondansetron HCl (Zofran) 4 mg IVP Q6H PRN PRN Reason: Nausea/Vomiting Pantoprazole Sodium (Protonix) 40 mg PO DAILY [facility] Last Admin: 06/24/17 08:42 Dose: 40 mg Sodium Chloride (Flush - Normal Saline) 10 ml IVF Q12HR [facility] Last Admin: 06/24/17 08:43 Dose: 10 ml Sodium Chloride (Flush - Normal Saline) 10 ml IVF PRN PRN PRN Reason: Saline Flush Tizanidine HCl (Zanaflex) 8 mg PO TIDPRN PRN PRN Reason: Muscle Spasm Last Admin: 06/23/17 22:48 Dose: 8 mg Tramadol HCl (Ultram) 50 mg PO Q6H PRN PRN Reason: Mild-Moderate Pain (1-5)
[2017-06-24] MEDS: DULoxetine 60 MG CAP PO SCH (21:33)
[2017-06-24] MEDS: tiZANidine HCl 4 MG TAB PO PRN (21:47)
[2017-06-24 22:21] LABS: Vancomycin, Trough 8.6 ug/mL
[2017-06-24] MEDS ORDERED: Vancomycin HCl 1.5 GM in Sodium Chloride 0.9% 250 ML 300 ML IVPB SCH (22:45)
[2017-06-24] MEDS ORDERED: OLANZapine 5 MG TAB PO SCH ×2 (23:30)
[2017-06-25] MEDS: Morphine 2 MG/ML SYRINGE SLOW IVP PRN ×4 (02:18→14:08)
[2017-06-25 05:15] LABS: #Eosinphils 0.1 thou/uL (0.0-0.7); #Lymphocytes 2.6 thou/uL (1.20-3.40); #Monocytes 0.8 thou/uL (0.11-0.59); #Neutrophils 4.5 thou/uL (1.40-6.50); %Basophils 0.4 % (0.0-1.0); %Eosinophils 1.6 % (0.0-10.0); %Lymphocytes 32.7 % (21.0-51.0); %Monocytes 9.7 % (0.0-10.0); %Neutrophils 55.6 % (42.0-75.0); Mean Corpuscular HGB CONC 34.4 g/dL (32.0-36.0); Mean Corpuscular Hemoglobin 30.1 pg (27.0-31.0); Mean Corpuscular Volume 87.5 fl (81.0-99.0); Mean Platelet Volume 8.1 fL (7.4-10.4); Platelet Count 245 thou/uL (130-400); RBC Distribution Width 13.3 % (11.5-14.5); Red Blood Cell (RBC) Count 4.64 mill/uL (4.20-5.40); White Blood Cell (WBC) Count 8.1 thou/uL (4.8-10.8)
[2017-06-25 05:24] LABS: Anion Gap 14 mmol/L (10-20); BUN (Urea Nitrogen) 9 mg/dL (7.0-18.7); Calc. Creatinine Clearance 166 mL/min (70-130); Calcium 9.6 mg/dL (7.8-10.44); Carbon Dioxide 23 mmol/L (22-29); Chloride 102 mmol/L (98-107); Estimated GFR-MDRD 82; Glucose 341 mg/dL (70-105); Potassium 3.8 mmol/L (3.5-5.1); Sodium 135 mmol/L (136-145)
[2017-06-25] MEDS: Levothyroxine Sodium 25 MCG TAB PO SCH (06:05)
[2017-06-25] MEDS: Vancomycin HCl 1.5 GM in Sodium Chloride 0.9% 250 ML 300 ML IVPB SCH ×2 (06:06→14:07)
[2017-06-25] MEDS: HumaLOG 300 UNITS/3 ML VIAL SC PRN ×2 (06:08→11:55)
[2017-06-25] MEDS: cefTRIAXone\\ROCEPHIN 1 GM, Syringe 0.4 ML in Sterile Water 9.6 ML SLOW IVP SCH (08:57)
[2017-06-25] MEDS: cloNIDine 0.3 MG TAB PO SCH (08:58)
[2017-06-25] MEDS: Gabapentin 300 MG CAP PO SCH ×2 (08:59→14:05)
[2017-06-25] MEDS: Heparin 5,000 UNITS/ML VIAL SC SCH ×2 (08:59→14:05)
[2017-06-25] MEDS: Carvedilol 6.25 MG TAB PO SCH (08:59)
[2017-06-25] MEDS: Allopurinol 100 MG TAB PO SCH (08:59)
[2017-06-25] MEDS: clonazePAM 1 MG TAB PO SCH ×2 (09:00→14:05)
[2017-06-25] MEDS: Docusate 100 MG CAP PO SCH (09:00)
[2017-06-25 14:17] VITALS: BP 128/91; TEMP 98.2
--- NOTE | 2017-06-25 15:13 | DIS ---
DATE OF ADMISSION: 06/23/2017 DATE OF DISCHARGE: 06/25/2017 DISCHARGE DIAGNOSES: Diabetic foot ulcer; type 2 diabetes mellitus, uncontrolled; hypertension; hypothyroidism. HISTORY OF PRESENT ILLNESS/HOSPITAL COURSE: A 47-year-old female with a history of hypertension, type 2 diabetes, bipolar disorder, schizophrenia, and hyperlipidemia, who presented to the hospital with pain in her right foot. She was admitted a couple of weeks ago due to her right foot blister, which was evaluated, and she was discharged home on p.o. antibiotics. While she was in the hospital, she was evaluated by General Surgery, who found no indication for debridement; however, she reports she has been taking her medications as prescribed and still has some drainage from her foot. She reports some subjective fever and chills, but no nausea, vomiting, no other systemic symptoms. There is no chest pain and no shortness of breath. At the emergency room, she had a foot x-ray, which was unremarkable. She was started on broad- spectrum antibiotics parenterally and admitted for possible osteomyelitis of the foot and MRI showed no osteomyelitis and inflammatory markers were not elevated. She was also reviewed by General Surgery, who made an assessment that there was no abscess and the patient did not require any intervention. She was continued on IV antibiotics while in the hospital and showed adequate control and relatively fair control of her blood glucose. She is discharged on long-term antibiotics with plan to follow up with the [facility] for further care. DISCHARGE MEDICATIONS: Tramadol 300 mg daily (previous home medication), clonazepam 2 mg 3 times a day, duloxetine 120 mg at bedtime, levothyroxine sodium 25 mcg orally daily, Levemir FlexPen 100 units subcutaneously twice a day , Humalog sliding scale, gabapentin 600 mg 3 times a day, allopurinol 100 mg daily, tizanidine 8 mg 3 times a day as needed for muscle spasms, carvedilol 6.25 mg twice a day, clonidine 0.3 mg twice daily, pantoprazole 40 mg daily, liraglutide 1.8 mg subcutaneously daily, hydrocodone 1 tab every 6 hours as needed for pain, risperidone 1 mg at bedtime, olanzapine 20 mg at bedtime, neomycin sulfate, Bicitra, polymyxin B 2 grams topically daily, cefdinir 300 mg twice a day. PHYSICAL EXAMINATION: She was examined on the day of discharge. VITAL SIGNS: Blood pressure 124/79, temperature 98.3 degree Fahrenheit, pulse rate 95, respiratory rate 18, oxygen saturation 95% on room air. GENERAL: Not in acute distress, lying comfortably in bed. HEENT: PERRLA. Moist mucous membranes. Sclerae are anicteric. NECK: No JVD. Neck is supple. RESPIRATORY: Vesicular breath sounds bilaterally. No wheezes or rales. CARDIOVASCULAR: Regular rate and rhythm. No murmurs, rubs, or gallops. S1, S2 only. GASTROINTESTINAL: Soft, nontender, nondistended, positive bowel sounds. MUSCULOSKELETAL: No edema. Pulses present. Right diabetic foot ulcer around the heel, clean and dry. NEUROLOGIC: Alert and well oriented. No focal deficits. PSYCHIATRIC: Normal mood and affect. SKIN: Warm, dry, well perfused. No rashes. LABORATORY DATA: WBC 8.1, hemoglobin 14, platelets 245. Sodium 135, potassium 3.8, chloride 102, carbon dioxide 23, anion gap 14, BUN 9, creatinine 0.76, glucose 341, calcium 9.6. IMAGING: Lower extremity MRI as reported in HPI. Foot x-ray. CONSULTS: General Surgery CONDITION AT DISCHARGE: Stable and improved. PROCEDURES: None. Care goals: To follow up with her primary care physician within 1 week of discharge, also to follow up with the [facility]. Activity to resume as tolerated. Discharge time 60 minutes including chart review and documentation. MTDD
[2017-06-25] MEDS ORDERED: OLANZapine 5 MG TAB PO SCH (21:00)
== END 2017-06-25 15:14 | disposition home or self-care (01) | DRG 638 ==
LOC: ERS 15:54 → T4-A 20:16
PROVIDERS: ADMIT Internal Medicine; ATTEND Internal Medicine
DX: E11.621 Type 2 diabetes mellitus with foot ulcer (principal); L97.411 Non-pressure chronic ulcer of right heel and midfoot limited to breakdown of skin; E11.42 Type 2 diabetes mellitus with diabetic polyneuropathy; F20.9 Schizophrenia, unspecified; I10 Essential (primary) hypertension; E03.9 Hypothyroidism, unspecified; F31.9 Bipolar disorder, unspecified; E78.5 Hyperlipidemia, unspecified; Z79.4 Long term (current) use of insulin; E11.65 Type 2 diabetes mellitus with hyperglycemia; Z91.14 Patient's other noncompliance with medication regimen
CPT/HCPCS: 36415; 36416; 80048; 80053; 80202; 83605; 85025; 85652; 86140; 87040; 87070; 87205; 96361; 96374; 96375; A4216; J0696; J1644; J2270; J3370; J7050

== ENCOUNTER 2017-09-02 12:29 | Emergency (ER) | payer OTHER ==
[2017-09-02 13:26] LABS: #Lymphocytes 2.2 thou/uL (1.20-3.40); #Monocytes 0.4 thou/uL (0.11-0.59); #Neutrophils 7.9 thou/uL (1.40-6.50); %Basophils 0.4 % (0.0-1.0); %Eosinophils 0.4 % (0.0-10.0); %Lymphocytes 20.9 % (21.0-51.0); %Neutrophils 74.3 % (42.0-75.0); Mean Corpuscular HGB CONC 34.9 g/dL (32.0-36.0); Mean Corpuscular Hemoglobin 31.3 pg (27.0-31.0); Mean Corpuscular Volume 89.6 fl (81.0-99.0); Mean Platelet Volume 8.3 fL (7.4-10.4); Platelet Count 295 thou/uL (130-400); RBC Distribution Width 12.5 % (11.5-14.5); White Blood Cell (WBC) Count 10.6 thou/uL (4.8-10.8)
[2017-09-02 13:28] LABS: Bilirubin Negative (Negative); Blood, Urine Negative (Negative); Clarity CLEAR (Clear); Glucose, Urine (Dipstick) 500 mg/dL (Negative); Leukocyte Negative (Negative); Nitrite Negative (Negative); Protein, Urine (Dipstick) 30 mg/dL (Neg-Trace); pH, Urine 5.5 (5.0-9.0)
[2017-09-02 13:30] LABS: Bacteria/HPF None Seen HPF (None Seen); Hyaline Casts/LPF 0-3 HYALINE CAST LPF (0-3 Hyaline); RBC/HPF 0-3 HPF (0-3); Squamous Epithelial None Seen HPF (0-3); WBC/HPF 0-3 HPF (0-3)
[2017-09-02 13:45] LABS: ALT (SGPT) 70 U/L (8-55); AST (SGOT) 60 U/L (5-34); Albumin 4.7 g/dL (3.5-5.0); Alkaline Phosphatase 203 U/L (40-150); Anion Gap 18 mmol/L (10-20); BUN (Urea Nitrogen) 11 mg/dL (7.0-18.7); Bilirubin, Total 0.7 mg/dL (0.2-1.2); Calc. Creatinine Clearance 0 mL/min (70-130); Calcium 10.4 mg/dL (7.8-10.44); Carbon Dioxide 21 mmol/L (22-29); Chloride 102 mmol/L (98-107); Estimated GFR-MDRD 76; Globulin 3.9 g/dL (2.4-3.5); Glucose 268 mg/dL (70-105); Potassium 3.7 mmol/L (3.5-5.1); Protein, Total 8.6 g/dL (6.0-8.3); Sodium 137 mmol/L (136-145)
--- NOTE | 2017-09-02 14:37 | CT ---
ABDOMEN AND PELVIC CT SCAN WITHOUT IV CONTRAST: Date: 09/02/17 HISTORY: 47-year-old female with history of abdominal pain, flank pain, and back pain. COMPARISON: 09/24/16. FINDINGS: Lung bases are clear. Enlarged, fatty liver. Postop cholecystectomy. Visualized pancreas, spleen, and adrenal glands are unremarkable. No renal calculus or acute obstruction. No CT evidence for acute appendicitis. Scattered colonic diverticulosis without acute diverticulitis. Status post hysterectom y. Lumbar spine spondylosis. IMPRESSION: No significant acute process in the abdomen or pelvis. Fatty changes of the liver. Other stable findi ngs as above. POS: [facility]
== END 2017-09-02 15:54 | disposition home or self-care (01) ==
LOC: ERS 12:29
DX: R10.9 Unspecified abdominal pain (principal); E11.9 Type 2 diabetes mellitus without complications; K57.92 Diverticulitis of intestine, part unspecified, without perforation or abscess without bleeding; E78.5 Hyperlipidemia, unspecified; I10 Essential (primary) hypertension; F41.9 Anxiety disorder, unspecified; F31.9 Bipolar disorder, unspecified; F20.9 Schizophrenia, unspecified; Z86.73 Personal history of transient ischemic attack (TIA), and cerebral infarction without residual deficits; Z79.4 Long term (current) use of insulin; Z79.899 Other long term (current) drug therapy
CPT/HCPCS: 36415; 74176; 80053; 81003; 81015; 85025; 93005; 96360; 96361

== ENCOUNTER 2017-10-25 05:02 | Emergency (ER) | payer OTHER | END 2017-10-25 06:11 | disposition home or self-care (01) | LOC: ERS 05:02 | DX: G89.4 Chronic pain syndrome (principal); K43.9 Ventral hernia without obstruction or gangrene; E11.9 Type 2 diabetes mellitus without complications; E78.5 Hyperlipidemia, unspecified; I10 Essential (primary) hypertension; Z86.73 Personal history of transient ischemic attack (TIA), and cerebral infarction without residual deficits; F41.9 Anxiety disorder, unspecified; F31.9 Bipolar disorder, unspecified; F20.9 Schizophrenia, unspecified; Z79.899 Other long term (current) drug therapy; Z79.4 Long term (current) use of insulin | CPT/HCPCS: 36416; 99283 ==

== ENCOUNTER 2017-10-28 11:08 | Emergency (ER) | payer OTHER ==
[2017-10-28 13:21] LABS: #Eosinphils 0.1 thou/uL (0.0-0.7); #Lymphocytes 3.4 thou/uL (1.20-3.40); #Monocytes 0.8 thou/uL (0.11-0.59); %Basophils 0.3 % (0.0-1.0); %Eosinophils 1.3 % (0.0-10.0); %Lymphocytes 36.2 % (21.0-51.0); %Monocytes 8.7 % (0.0-10.0); %Neutrophils 53.5 % (42.0-75.0); Hemoglobin 14.4 g/dL (12.0-16.0); Mean Corpuscular Hemoglobin 31.3 pg (27.0-31.0); Mean Corpuscular Volume 89.3 fL (78.0-98.0); Mean Platelet Volume 8.3 fL (7.4-10.4); Platelet Count 215 thou/uL (130-400); Red Blood Cell (RBC) Count 4.61 mill/uL (4.20-5.40); White Blood Cell (WBC) Count 9.3 thou/uL (4.8-10.8)
[2017-10-28 13:43] LABS: ALT (SGPT) 43 U/L (8-55); AST (SGOT) 32 U/L (5-34); Albumin 4.3 g/dL (3.5-5.0); Alkaline Phosphatase 115 U/L (40-150); Anion Gap 16 mmol/L (10-20); BUN (Urea Nitrogen) 14 mg/dL (7.0-18.7); Bilirubin, Total 0.5 mg/dL (0.2-1.2); CRP (Inflammatory) 1.14 mg/dL (= or < 0.5); Calc. Creatinine Clearance 0 mL/min (70-130); Calcium 9.8 mg/dL (7.8-10.44); Carbon Dioxide 23 mmol/L (22-29); Chloride 103 mmol/L (98-107); Estimated GFR-MDRD 75; Globulin 3.1 g/dL (2.4-3.5); Glucose 276 mg/dL (70-105); Potassium 3.5 mmol/L (3.5-5.1); Protein, Total 7.4 g/dL (6.0-8.3); Sodium 138 mmol/L (136-145)
[2017-10-28 13:56] LABS: Bilirubin Negative (Negative); Blood, Urine Negative (Negative); Clarity CLEAR (Clear); Glucose, Urine (Dipstick) >=1000 mg/dL (Negative); Leukocyte Negative (Negative); Nitrite Negative (Negative); Protein, Urine (Dipstick) Negative (Neg-Trace); Specific Gravity, Urine 1.023 (1.002-1.036); Urobilinogen 0.2 mg/dL (0.2-1.0); pH, Urine 6.5 (5.0-9.0)
[2017-10-28] MEDS ORDERED: Acetaminophen 500 MG TAB ONE (14:30)
--- NOTE | 2017-10-28 15:03 | RAD ---
AP PELVIS ONE VIEW: HISTORY: A 47-year-old female with a history of right hip pain and lower abdominal pain following an injury fr om a fall. FINDINGS/IMPRESSION: No fracture, dislocation, or other significant acute ability. POS: MAX
--- NOTE | 2017-10-28 15:05 | RAD ---
RIGHT HIP TWO VIEWS: HISTORY: A 47-year-old female with a history of right hip pain following an injury from a fall. FINDINGS: Mild degenerative changes. No fracture or dislocation. IMPRESSION: 1. Unremarkable right hip. 2. Mild degenerative change. POS: [facility]
== END 2017-10-28 15:03 | disposition home or self-care (01) ==
LOC: ERS 11:08
DX: M25.551 Pain in right hip (principal); G89.29 Other chronic pain; E11.9 Type 2 diabetes mellitus without complications; E78.5 Hyperlipidemia, unspecified; I10 Essential (primary) hypertension; E03.9 Hypothyroidism, unspecified; F41.9 Anxiety disorder, unspecified; F20.9 Schizophrenia, unspecified; F31.9 Bipolar disorder, unspecified; Z86.73 Personal history of transient ischemic attack (TIA), and cerebral infarction without residual deficits; Z79.891 Long term (current) use of opiate analgesic; Z79.899 Other long term (current) drug therapy; Z79.4 Long term (current) use of insulin
CPT/HCPCS: 72170; 80053; 81003; 85025; 85652; 86140; 93005; 96360; 96361

== ENCOUNTER 2017-10-31 15:35 | Inpatient (IN) | payer OTHER ==
[2017-10-31] MEDS ORDERED: Naloxone HCl 0.4 mg/ml Vial ONE (16:00)
[2017-10-31 16:26] LABS: Bilirubin Negative (Negative); Blood, Urine Trace (Negative); Clarity CLOUDY (Clear); Glucose, Urine (Dipstick) 500 mg/dL (Negative); Leukocyte Negative (Negative); Nitrite Negative (Negative); Protein, Urine (Dipstick) Trace mg/dL (Neg-Trace); Specific Gravity, Urine 1.024 (1.002-1.036); pH, Urine 5.5 (5.0-9.0)
[2017-10-31 16:29] LABS: Bacteria/HPF None Seen HPF (None Seen); RBC/HPF 0-3 HPF (0-3); WBC/HPF 0-3 HPF (0-3)
[2017-10-31 16:30] LABS: Pathc Cast-AUWi Flag 4.21 (0-2.49)
[2017-10-31 16:31] LABS: Pregnancy Test - Urine (BHCG) Negative (Negative); Pregu Control Background? CLEAR/WHITE (CLR/WHITE); Pregu Control Bar Appear? YES (CONTROL BAR); Specific Gravity 1.024 (1.002-1.036)
[2017-10-31 16:39] LABS: Medtox Reader # READER 1; Methadone Detected (NotDetected); Opiate Screen Detected (NotDetected)
[2017-10-31 16:40] LABS: Amphetamine Not Detected (NotDetected); Barbiturates Screen Not Detected (NotDetected); Benzodiazepine Screen Not Detected (NotDetected); Cocaine Metabolite Screen Not Detected (NotDetected); Medtox Control Line Valid? VALID (VALID); Methamphetamine Not Detected (NotDetected); Oxycodone Screen Not Detected (NotDetected); Phencyclidine (PCP) Not Detected (NotDetected); THC/Cannabinoid Screen Not Detected (NotDetected); Tricyclic Screen Not Detected (NotDetected)
[2017-10-31 16:43] LABS: Renal Epithelial 0-3 HPF (0-3); Transitional Epithelial 0-3 HPF (0-3)
--- NOTE | 2017-10-31 16:58 | RAD ---
PORTABLE UPRIGHT FRONTAL CHEST: Date: 10/31/17 COMPARISON: 02/09/17. HISTORY: Hypoxia, altered mental status. FINDINGS: Pulmonary vascular congestion noted. Mild interstitial opacity in the perihilar regions and both lung bases. No pneumothorax, lobar consolidation, or alveolar edema. IMPRESSION: Pulmonary vascular congestion with perihilar and bibasilar interstitial prominence suggests mild inte rstitial edema. No lobar consolidation or alveolar edema. POS: [facility]
[2017-10-31] MEDS ORDERED: Lorazepam 2 MG/ML VIAL ONE (17:07)
[2017-10-31 17:51] LABS: Base Excess-Venous -1.9 mmol/L (0 (+/- 2.5)); Bicarbonate (HCO3v) 23.9 mmol/L (1.0-85.0); CO2 Tension (PvCO2) 43.2 mmHg (41.0-51.0); Calcium, Ionized 1.11 mmol/L (1.12-1.32); Hemoglobin - Calc 15.4 g/dL (12.0-18.0); O2 Tension (PvO2) 48.6 mmHg (35.0-45.0); Potassium 4.6 mmol/L (3.4-4.7); T. Carbon Dioxide 25.2 mmol/L (1.0-85.0); pH (Venous) 7.351 (7.35-7.45); vO2 Saturation-calc 81.8 % (94-98)
[2017-10-31 18:04] LABS: ALT (SGPT) 135 U/L (8-55); AST (SGOT) 125 U/L (5-34); Acetaminophen Less than 6.0 mcg/mL (10.0-30.0); Albumin 4.5 g/dL (3.5-5.0); Alcohol Less than 10 mg/dL (Less than 10); Alkaline Phosphatase 166 U/L (40-150); Anion Gap 20 mmol/L (10-20); BUN (Urea Nitrogen) 18 mg/dL (7.0-18.7); Bilirubin, Total 0.8 mg/dL (0.2-1.2); Calc. Creatinine Clearance 0 mL/min (70-130); Carbon Dioxide 22 mmol/L (22-29); Chloride 99 mmol/L (98-107); Estimated GFR-MDRD 54; Globulin 3.2 g/dL (2.4-3.5); Glucose 357 mg/dL (70-105); Potassium 4.9 mmol/L (3.5-5.1); Protein, Total 7.7 g/dL (6.0-8.3); Salicylate Less than 8.0 mg/dL (15.0-30.0); Sodium 136 mmol/L (136-145)
--- NOTE | 2017-10-31 18:10 | CT ---
CT BRAIN WITHOUT CONTRAST: Date: 10/31/17 HISTORY: Altered mental status. FINDINGS: Comparison made with exam of 03/25/15. No evidence of infarct, hemorrhage, midline shift, or abnormal extra-axial fluid collections are seen . The ventricular size is normal and the basilar cisterns are patent. The bony calvarium is intact. T he visualized paranasal sinuses and mastoid air cells are well aerated. IMPRESSION: No CT evidence of acute intracranial process. POS: [facility]
[2017-10-31 18:17] LABS: CK (CPK) 4470 U/L (29-168)
[2017-10-31 18:21] LABS: Mean Corpuscular HGB CONC 34.9 g/dL (32.0-36.0); Mean Corpuscular Hemoglobin 31.6 pg (27.0-31.0); Mean Corpuscular Volume 90.5 fL (78.0-98.0); Mean Platelet Volume 8.4 fL (7.4-10.4); Platelet Count 215 thou/uL (130-400); RBC Distribution Width 13.4 % (11.5-14.5); Red Blood Cell (RBC) Count 4.43 mill/uL (4.20-5.40); White Blood Cell (WBC) Count 12.1 thou/uL (4.8-10.8)
[2017-10-31 18:23] LABS: Troponin I 0.082 ng/mL (< 0.028)
[2017-10-31 18:27] LABS: Band 17 % (5-11); CKMB 43.2 ng/mL (0-6.6); Lymphocytes 19 % (21-51); MDiff Complete? YES; Monocytes 11 % (0-10); Neutrophil 53 % (42-75); PLT Morphology Comment Appears Adequate; RBC Morphology Normal
[2017-10-31] MEDS ORDERED: Ampicillin/Sulbactam 3 GM in Sodium Chloride 0.9% 100 ML IVPB SCH (18:45)
--- NOTE | 2017-10-31 19:13 | RAD ---
FRONTAL RADIOGRAPH CHEST 10/31/17 at 5:49 p.m. COMPARISON: 10/31/17 at 3:05 p.m. HISTORY: Altered mental status, hypoxia, line placement. FINDINGS: The cardiac silhouette remains prominent. Pulmonary vascular congestion noted. Right sided vascular c atheter present, distal tip overlying expected level of cavoatrial junction. There is mild increased density in the right perihilar region and right suprahilar region, not well assessed on portable imag ing. No lobar consolidation or alveolar edema. IMPRESSION: Prominent cardiac silhouette. Right vascular catheter with no evidence for pneumothorax. Increased de nsity in right perihilar region and right suprahilar region may be on the basis of vascular structure s, volume loss or mass density. A followup PA and lateral chest radiograph is advised for full assess ment when the patient is able. Code T POS: [facility]
[2017-10-31 22:04] LABS: Lactic Acid 2.9 mmol/L (0.5-2.2)
[2017-10-31] MEDS ORDERED: Lorazepam 2 MG/ML VIAL SLOW IVP PRN (22:27)
[2017-10-31] MEDS ORDERED: hydrALAZINE 20 MG/ML VIAL SLOW IVP PRN (22:27)
[2017-10-31] MEDS ORDERED: diphenhydrAMINE 50 MG/ML VIAL IVP PRN (22:27)
[2017-10-31] MEDS ORDERED: Ondansetron HCl/PF 4 MG/2 ML Vial IVP PRN (22:27)
[2017-10-31] MEDS ORDERED: cloNIDine 0.1 MG TAB PO PRN (22:27)
[2017-10-31] MEDS ORDERED: Dextrose 50% Abboject 50 ML SYRINGE SLOW IVP PRN (22:27)
[2017-10-31] MEDS ORDERED: Benzonatate 100 MG CAP PO PRN (22:27)
[2017-10-31] MEDS ORDERED: Dextrose 5% in Water 1,000 ML IV PRN (22:27)
[2017-10-31] MEDS ORDERED: Ondansetron ODT 4 MG TAB PO PRN (22:27)
[2017-10-31 22:57] VITALS: BMI 43.2
[2017-10-31] MEDS: Vancomycin HCl 1.5 GM in Sodium Chloride 0.9% 250 ML 300 ML IVPB SCH (23:38)
[2017-10-31] MEDS: Sodium Chloride 0.9% 1,000 ML IV SCH (23:39)
[2017-10-31] MEDS ORDERED: Cefepime 2 GM in Sodium Chloride 0.9% 100 ML IVPB SCH (23:59)
--- NOTE | 2017-11-01 01:06 | HP ---
DATE OF ADMISSION: 10/31/2017 PRIMARY CARE PHYSICIAN: Dr. Noah Stewart. CHIEF COMPLAINT: Altered mental status and unresponsive. HISTORY OF PRESENT ILLNESS: This is a 47-year-old female who presented to [facility] Emergency Department in transport by EMS personnel after patient was apparently found on her bed unresponsive, blue around the lips, confused, and unable to walk. The history is obtained after disc ussions with the ER attending as well as review of nursing documentation and electronic medical recor d reports. Patient was apparently found unresponsive at home as stated previously, unknown amount of time. EMS personnel were notified, at which point patient was assessed with a glucose over 500. Isauro olson underwent intraosseous IV placement and given Narcan 1 mg. Patient was observed with improving spontaneous respirations and improving mental status after Narcan administration. Patient with long standing history of narcotic use with multiple evaluations and admissions to [facility] ER and inpatient status over the last 2 years. Patient with known drug seeking behavior do cumented on multiple occasions throughout the medical record after review of the electronic medical r ecord documentation. In the emergency room, patient underwent general evaluation including chest tobias ging after concern for potential aspiration event due to the patient's vomitus around the oxygen face mask. Chest imaging did not reveal an acute infiltrate; however, patient did receive IV Unasyn in a ddition to IV fluid resuscitation. Patient also received Ativan 0.5 mg x1 dose and Narcan 0.4 mg in addition to the 1 mg administered in the field. ER nursing personnel report, patient continues to be groggy, lethargic, confused with garbled speech. Patient was referred to the Hospitalist Service fo r further evaluation. PAST MEDICAL HISTORY: 1. Chronic narcotic use. 2. Drug seeking behavior. 3. Diabetes mellitus type 2, insulin requiring. 4. Hyperlipidemia. 5. Hypertension. 6. Chronic back pain. 7. Question of CVA in 2014. 8. Hypothyroidism. 9. Bipolar disorder. 10. Schizophrenia. PAST SURGICAL HISTORY: 1. Status post section x2. 2. Status post section x3. 3. Status post left elbow surgery. 4. Status post lumbar spine surgical repair. 5. Status post carpal tunnel release to the left. 6. Status post corrective eye surgery on the right x2. 7. Status post laparoscopic cholecystectomy. 8. Status post partial hysterectomy. PSYCHIATRIC HISTORY: Positive for bipolar disorder/depression/schizophrenia with inpatient psychiatr ic care in [place] 2013. CURRENT MEDICATIONS: Based on previous discharge summary on 06/25/2017. 1. Tramadol 300 mg daily. 2. Clonazepam 2 mg p.o. t.i.d. 3. Duloxetine 120 mg p.o. at bedtime. 4. Levothyroxine 25 mcg p.o. daily. 5. Levemir FlexPen 100 units subcutaneously b.i.d. 6. Humalog sliding scale. 7. Gabapentin 600 mg p.o. t.i.d. 8. Allopurinol 100 mg p.o. daily. 9. Tizanidine 8 mg p.o. t.i.d. 10. Carvedilol 6.25 mg p.o. b.i.d. 11. Clonidine 0.3 mg p.o. b.i.d. 12. Protonix 40 mg p.o. daily. 13. Liraglutide 1.8 mg subcutaneously daily. 14. Hydrocodone 1 tablet p.o. q.6 hours p.r.n. pain. 15. Risperdal 1 mg p.o. at bedtime. 16. Olanzapine 20 mg p.o. at bedtime. 17. Polymyxin B 2 grams topically daily. ALLERGIES: BUTORPHANOL and TORADOL. FAMILY HISTORY: Positive for coronary artery disease in her mother. Sister with a brain aneurysm zeng ccumbing to her condition in her 40s. SOCIAL HISTORY: Patient resides in the [facility]. No alcohol, tobacco, or illicit drug use. History of narcotic use and drug seeking behavior. REVIEW OF SYSTEMS: Unobtainable as patient with altered mentation and encephalopathy. PHYSICAL EXAMINATION: VITAL SIGNS: On admission, blood pressure 139/73, pulse 110, respiratory rate 18, temperature 97.3 d egrees rectally, O2 saturation 93% on 4 liters per minute by nasal cannula. GENERAL APPEARANCE: This is a 47-year-old female, agitated, moaning garbled speech, confus ed, in [id number] distress. HEENT: Pupils are minimally reactive to light and accommodation. Conjunctival injection noted bilat erally. Extraocular muscles intact but does not track consistently. Nares patent. OP is clear. Or al mucosa dry appearing. NECK: Supple, no cervical lymphadenopathy, no thyromegaly, no carotid bruits, no JVD appreciated. C ervical spine with full active and passive range of motion. No meningeal signs appreciated. CHEST: Diminished breath sounds in the bases bilaterally. CARDIOVASCULAR: S1, S2 without noted murmur, rub, or gallop. Tachycardia noted. ABDOMEN: Obese, soft, nontender, nondistended. Bowel sounds are positive in all four quadrants. Th ere is no hepatosplenomegaly, no abdominal bruits, no rebound or guarding appreciated. Landmarks are difficult to palpate due to patient's body habitus. EXTREMITIES: Warm and dry with fair turgor. No clubbing, cyanosis, or asymmetric edema appreciated. Pulses palpable distally at the dorsalis pedis, posterior tibial, and popliteal arteries bilaterall y. Capillary refill less than 2 seconds. NEUROLOGIC: Lethargic. Alert and oriented x1. Dysarthric, combative, and agitated. Does not follo w simple commands. PERTINENT LABORATORY AND X-RAY FINDINGS: Sodium 136, potassium 4.6, chloride 101, CO2 of 22, BUN 18, creatinine 1.09, estimated GFR of 54, glucose 357. Lactic acid level 5.6, AST 125, ALT 135, alkalin e phosphatase 166. Total CK 4470. Troponin I 0.082. BNP 344 previously noted 42 on 07/08/2016. Al bumin 4.5. TSH 1.03. CBC showed a white blood cell count 12.1, hemoglobin 14, hematocrit 40, platel et count 215 with 53% neutrophils, 17% bands. Venous blood gas dated 10/31/2017 showed a pH 7.35, pC O2 of 43, pO2 of 48.6, O2 saturation 82%. Urinalysis positive for glucose, trace blood, 7-10 squamou s epithelial cells. Urine beta hCG negative on 10/31/2017. Urine drug screen dated 10/31/2017 posit nadine for opiates and methadone. Plasma alcohol level less than 10. CT of the brain without contrast dated 10/31/2017 showed no acute intracranial process. Portable chest x-ray dated 10/31/2017 showed increased density in the right perihilar region and right suprahilar region. EKG dated 10/31/2017 by my interpretation shows sinus tachycardia with heart rates in the 110s. Normal R-wave progression n oted in the precordial leads. Normal axis. No acute ST-T wave changes appreciated. ASSESSMENT AND PLAN: 1. Acute toxic metabolic encephalopathy. Suspect secondarily to opiate overdose and exposure. Gertrude ent will be admitted to the medical floor. Status post Narcan treatment x2 doses. We will continue to monitor neurologic response. Consider sitter for one-on-one observation. Initial CT imaging of t he brain unremarkable for acute process. Consideration for potential seizure activity prompting admi ssion, given history of narcotic abuse. 2. Opiate overdose. Patient with longstanding history of narcotic exposure. Urine drug screen posi tive for methadone and opiates. We will continue Narcan as needed. We will consider evaluation by [facility] service and consideration for inpatient detoxification placement. 3. Lactic acidosis. Suspect secondarily to #1 and #2. We will continue to monitor lactic acid tren d with serial lactic acid level q.4 hours x2. 4. Acute dyspnea. Suspicion for a potential aspiration event. We will repeat portable chest x-ray in the a.m. We will continue empiric antibiotic coverage with cefepime 2 grams q.12 hours with addit ional vancomycin 1 gram IV q.12 hours. Monitor for recurrence or worsening respiratory symptoms. Co ntinue oxygen supplementation as needed to maintain O2 saturation greater than or equal to 90%. 5. Transaminitis. Suspect secondarily to #1 and #2. We will continue to monitor LFT trend and repe at LFTs in the a.m. Inferior right upper quadrant abdominal imaging if LFTs failed to trend down. 6. Acute rhabdomyolysis. Suspect multifactorial given patient's presentation. Continue to monitor total CK with repeat in the a.m. Continue IV fluids with normal saline 125 mL per hour. 7. Diabetes mellitus type 2, insulin-requiring. Insulin sliding scale for reflexive coverage. Accu -Cheks before meals and at bedtime. Confirm home insulin regimen. ADA diet when tolerating p.o. int alexandra. 8. Bipolar disorder/schizophrenia. Continue supportive management as outlined previously. Consider [facility] evaluation when clinically stabilizing. 9. Prophylaxis. Sequential compression devices while in bed. Pepcid 20 mg IV q.12 hours. PT evalu ation in the a.m. 10. Code status is FULL. Surrogate medical decision maker not identified.
[2017-11-01] MEDS: Cefepime 2 GM in Sodium Chloride 0.9% 100 ML IVPB SCH ×2 (01:12→16:04)
[2017-11-01 01:46] LABS: Lactic Acid 2.6 mmol/L (0.5-2.2)
[2017-11-01] MEDS: Acetaminophen 500 MG TAB PO PRN ×2 (04:34→21:02)
[2017-11-01 06:09] LABS: ALT (SGPT) 120 U/L (8-55); AST (SGOT) 136 U/L (5-34); Albumin 4.2 g/dL (3.5-5.0); Alkaline Phosphatase 137 U/L (40-150); Anion Gap 14 mmol/L (10-20); BUN (Urea Nitrogen) 9 mg/dL (7.0-18.7); Bilirubin, Total 1.1 mg/dL (0.2-1.2); Calc. Creatinine Clearance 177 mL/min (70-130); Calcium 9.4 mg/dL (7.8-10.44); Carbon Dioxide 28 mmol/L (22-29); Chloride 100 mmol/L (98-107); Estimated GFR-MDRD 85; Glucose 157 mg/dL (70-105); Potassium 3.9 mmol/L (3.5-5.1); Protein, Total 7.2 g/dL (6.0-8.3); Sodium 138 mmol/L (136-145)
[2017-11-01 06:10] LABS: Lactic Acid 4.3 mmol/L (0.5-2.2)
[2017-11-01 06:24] LABS: Band 15 % (5-11); Hemoglobin 12.6 g/dL (12.0-16.0); Lymphocytes 14 % (21-51); MDiff Complete? YES; Mean Corpuscular HGB CONC 34.1 g/dL (32.0-36.0); Mean Corpuscular Hemoglobin 30.6 pg (27.0-31.0); Mean Corpuscular Volume 89.9 fL (78.0-98.0); Mean Platelet Volume 8.1 fL (7.4-10.4); Monocytes 3 % (0-10); Neutrophil 68 % (42-75); Nucleated RBC 1 % (0); PLT Morphology Comment Appears Adequate; Platelet Count 203 thou/uL (130-400); RBC Distribution Width 13.4 % (11.5-14.5); RBC Morphology Normal; Red Blood Cell (RBC) Count 4.13 mill/uL (4.20-5.40); White Blood Cell (WBC) Count 10.5 thou/uL (4.8-10.8)
[2017-11-01] MEDS: Sodium Chloride 0.9% 1,000 ML IV SCH ×5 (06:24→23:42)
[2017-11-01 06:36] LABS: CK (CPK) 8820 U/L (29-168)
[2017-11-01] MEDS: Vancomycin HCl 1.5 GM in Sodium Chloride 0.9% 250 ML 300 ML IVPB SCH (10:27)
[2017-11-01 11:31] LABS: Lactic Acid 2.3 mmol/L (0.5-2.2)
[2017-11-01] MEDS: HumaLOG 300 UNITS/3 ML VIAL SC PRN ×3 (11:39→20:51)
[2017-11-01] MEDS: Famotidine/PF 20 mg/2ml Vial SLOW IVP SCH ×2 (11:40→20:50)
[2017-11-01] MEDS ORDERED: Artificial Tear Sol 15 ML BOT EA EYE PRN (15:30)
--- NOTE | 2017-11-01 19:34 | PDOC.PN ---
- Subjective Encounter Start Date: 11/01/17 Encounter Start Time: 12:00 Subjective: seen and examined. NAD. No acute events. - Objective Resuscitation Status: Resuscitation Status FULL:Full Resuscitation Vital Signs & Weight: Vital Signs (12 hours) Temp Pulse Resp BP BP Pulse Ox 11/01/17 19:31 99.0 F 121 H 20 147/79 H 96 11/01/17 17:21 98.9 F 95 18 169/92 H 116 H 11/01/17 11:33 99.0 F 115 H 18 150/86 H 96 11/01/17 08:00 98.4 F 108 H 18 98 I&O: 10/31/17 11/01/17 11/02/17 06:59 06:59 06:59 Intake Total 1600 Balance 1600 Result Diagrams: 11/02/17 04:00 11/02/17 04:00 Additional Labs: Accuchecks 11/01/17 11/01/17 11/01/17 16:49 12:52 11:34 POC Glucose 268 H 250 H 252 H 11/01/17 11/01/17 10/31/17 10:24 04:10 23:34 POC Glucose 217 H 89 127 H Phys Exam - Physical Examination HEENT: PERRLA, moist MMs Left eye conjunctivitis Neck: no JVD Respiratory: no wheezing, no rales, no rhonchi, clear to auscultation bilateral Cardiovascular: RRR, no significant murmur, no rub Gastrointestinal: soft, non-tender, no distention, positive bowel sounds Musculoskeletal: no edema, pulses present Neurological: non-focal, normal sensation, moves all 4 limbs Psychiatric: normal affect, A&O x 3 Skin: no rash, normal turgor Dx/Plan (1) Rhabdomyolysis Code(s): M62.82 - RHABDOMYOLYSIS Status: Acute Qualifiers: Encounter type: initial encounter Qualified Code(s): T79.6XXA - Traumatic ischemia of muscle, initial encounter Comment: Improving. Will decrease IVF from 200 to 100 cc/hr. Will monitor CPK in the AM. (2) Encephalopathy acute Code(s): G93.40 - ENCEPHALOPATHY, UNSPECIFIED Status: Acute Comment: 2/2 Toxic metabolic syndrome. Patient overdosed on his pain medications. Urine drug test positive for opiods. 1:[address] Will optimized patient clinically and will consult for psych screeners. (3) Hyperglycemia due to type 2 diabetes mellitus Code(s): E11.65 - TYPE 2 DIABETES MELLITUS WITH HYPERGLYCEMIA Status: Acute Comment: Poorly controlled DM II, resume home Levemir @ 50CC will increase dose as needed. Continue insulin @ 10 TID WM. Will monitor Glucose and keep it between 140- 180. (4) Bipolar 1 disorder Code(s): F31.9 - BIPOLAR DISORDER, UNSPECIFIED Status: Chronic Comment: Resume home regimen (5) Chronic pain syndrome Status: Chronic Comment: will give patient pain medication judiciously since patient seem to abuse pain medications. (6) DM type 2 (diabetes mellitus, type 2) Status: Chronic Qualifiers: Diabetes mellitus group home insulin use: with vermin exterminator use Diabetes mellitus complication status: with neurologic complications Diabetes mellitus complication detail: with polyneuropathy Qualified Code(s): E11.42 - Type 2 diabetes mellitus with diabetic polyneuropathy; Z79.4 - lobsterman (current) use of insulin; Z79.4 - intermediate (current) use of insulin; Z79.4 - lobsterman ( current) use of insulin; Z79.4 - lobsterman (current) use of insulin Comment: Continue current treatment. (7) Hypertension Code(s): I10 - ESSENTIAL (PRIMARY) HYPERTENSION Status: Chronic Qualifiers: Hypertension type: essential hypertension (8) Hypothyroidism Code(s): E03.9 - HYPOTHYROIDISM, UNSPECIFIED Status: Chronic Qualifiers: Hypothyroidism type: unspecified Qualified Code(s): E03.9 - Hypothyroidism , unspecified Comment: Continue Levothyroxine. (9) Morbid obesity with BMI of 40.0-44.9, adult Code(s): E66.01 - MORBID (SEVERE) OBESITY DUE TO EXCESS CALORIES; Z68.41 - BODY MASS INDEX (BMI) 40.0-44.9, ADULT Status: Chronic - Plan DVT proph w/SCDs * .
[2017-11-01] MEDS ORDERED: clonazePAM 1 MG TAB PO PRN (23:30)
[2017-11-01] MEDS ORDERED: DULoxetine 60 MG CAP PO SCH (23:30)
[2017-11-01] MEDS ORDERED: risperiDONE 1 MG TAB PO SCH (23:30)
[2017-11-01] MEDS ORDERED: cloNIDine 0.1 MG TAB PO PRN (23:31)
[2017-11-02] MEDS: Cefepime 2 GM in Sodium Chloride 0.9% 100 ML IVPB SCH (00:10)
[2017-11-02] MEDS: Vancomycin HCl 1.5 GM in Sodium Chloride 0.9% 250 ML 300 ML IVPB SCH (00:15)
[2017-11-02 04:38] LABS: #Eosinphils 0.1 thou/uL (0.0-0.7); #Lymphocytes 2.1 thou/uL (1.20-3.40); #Neutrophils 5.4 thou/uL (1.40-6.50); %Basophils 0.1 % (0.0-1.0); %Eosinophils 1.2 % (0.0-10.0); %Lymphocytes 24.1 % (21.0-51.0); %Monocytes 11.7 % (0.0-10.0); Hemoglobin 12.1 g/dL (12.0-16.0); Mean Corpuscular HGB CONC 34.7 g/dL (32.0-36.0); Mean Corpuscular Hemoglobin 31.5 pg (27.0-31.0); Mean Platelet Volume 8.5 fL (7.4-10.4); Platelet Count 171 thou/uL (130-400); RBC Distribution Width 13.3 % (11.5-14.5); Red Blood Cell (RBC) Count 3.84 mill/uL (4.20-5.40); White Blood Cell (WBC) Count 8.5 thou/uL (4.8-10.8)
[2017-11-02 04:58] LABS: ALT (SGPT) 88 U/L (8-55); AST (SGOT) 70 U/L (5-34); Albumin 3.7 g/dL (3.5-5.0); Alkaline Phosphatase 134 U/L (40-150); Anion Gap 13 mmol/L (10-20); BUN (Urea Nitrogen) 7 mg/dL (7.0-18.7); CK (CPK) 2862 U/L (29-168); Calc. Creatinine Clearance 188 mL/min (70-130); Calcium 9.2 mg/dL (7.8-10.44); Carbon Dioxide 29 mmol/L (22-29); Chloride 102 mmol/L (98-107); Estimated GFR-MDRD Greater than 90; Globulin 2.9 g/dL (2.4-3.5); Glucose 253 mg/dL (70-105); Potassium 3.7 mmol/L (3.5-5.1); Protein, Total 6.6 g/dL (6.0-8.3); Sodium 140 mmol/L (136-145)
[2017-11-02] MEDS: Sodium Chloride 0.9% 1,000 ML IV SCH ×4 (05:26→20:23)
[2017-11-02] MEDS: HumaLOG 300 UNITS/3 ML VIAL SC PRN ×3 (05:59→20:29)
--- NOTE | 2017-11-02 09:32 | PDOC.PN ---
- Subjective Encounter Start Date: 11/02/17 Encounter Start Time: 09:31 Subjective: Seen and examine. NAD. Has no complaints. - Objective Resuscitation Status: Resuscitation Status FULL:Full Resuscitation Vital Signs & Weight: Vital Signs (12 hours) Temp Pulse Resp BP BP Pulse Ox 11/02/17 08:10 98.1 F 116 H 10 L 137/77 91 L 11/02/17 04:17 96 11/02/17 00:00 98.3 F 106 H 20 138/85 92 L I&O: 11/01/17 11/02/17 11/03/17 06:59 06:59 06:59 Intake Total 1600 2650 Balance 1600 2650 Result Diagrams: 11/02/17 04:00 11/02/17 04:00 Additional Labs: Accuchecks 11/02/17 11/01/17 11/01/17 04:07 19:27 16:49 POC Glucose 232 H 278 H 268 H 11/01/17 11/01/17 11/01/17 12:52 11:34 10:24 POC Glucose 250 H 252 H 217 H Phys Exam - Physical Examination HEENT: PERRLA, moist MMs Left eye conjuctivitis Neck: no JVD Respiratory: no wheezing, no rales, no rhonchi, clear to auscultation bilateral Cardiovascular: RRR, no significant murmur, no rub Gastrointestinal: soft, non-tender, no distention Musculoskeletal: no edema, pulses present Neurological: non-focal, normal sensation, moves all 4 limbs Psychiatric: normal affect, A&O x 3 Skin: no rash Dx/Plan (1) Rhabdomyolysis Code(s): M62.82 - RHABDOMYOLYSIS Status: Acute Qualifiers: Encounter type: initial encounter Qualified Code(s): T79.6XXA - Traumatic ischemia of muscle, initial encounter Comment: IVF @ 100 cc/hr. Will monitor CPK in the AM. (2) Encephalopathy acute Code(s): G93.40 - ENCEPHALOPATHY, UNSPECIFIED Status: Acute Comment: 2/2 Toxic metabolic syndrome. Patient overdosed on his pain medications. Continue 1: [address] will consult for psych screeners in the AM. (3) Hyperglycemia due to type 2 diabetes mellitus Code(s): E11.65 - TYPE 2 DIABETES MELLITUS WITH HYPERGLYCEMIA Status: Acute Comment: Poorly controlled DM II, resume home Levemir @ 50CC. Continue insulin @ 10 TID WM. Will monitor Glucose and keep it between 140- 180. (4) Bipolar 1 disorder Code(s): F31.9 - BIPOLAR DISORDER, UNSPECIFIED Status: Chronic Comment: Resume home regimen (5) Chronic pain syndrome Status: Chronic Comment: will give patient pain medication judiciously since patient seem to abuse pain medications. (6) DM type 2 (diabetes mellitus, type 2) Status: Chronic Qualifiers: Diabetes mellitus longwall headgate operator insulin use: with intermediate use Diabetes mellitus complication status: with neurologic complications Diabetes mellitus complication detail: with polyneuropathy Qualified Code(s): E11.42 - Type 2 diabetes mellitus with diabetic polyneuropathy; Z79.4 - termite control servicer (current) use of insulin; Z79.4 - termite control servicer (current) use of insulin; Z79.4 - termite control servicer ( current) use of insulin; Z79.4 - USP (current) use of insulin Comment: Continue current treatment. (7) Hypertension Code(s): I10 - ESSENTIAL (PRIMARY) HYPERTENSION Status: Chronic Qualifiers: Hypertension type: essential hypertension (8) Hypothyroidism Code(s): E03.9 - HYPOTHYROIDISM, UNSPECIFIED Status: Chronic Qualifiers: Hypothyroidism type: unspecified Qualified Code(s): E03.9 - Hypothyroidism , unspecified Comment: Continue Levothyroxine. (9) Morbid obesity with BMI of 40.0-44.9, adult Code(s): E66.01 - MORBID (SEVERE) OBESITY DUE TO EXCESS CALORIES; Z68.41 - BODY MASS INDEX (BMI) 40.0-44.9, ADULT Status: Chronic - Plan * . Review of Systems - Medications/Allergies Allergies/Adverse Reactions: Allergies Allergy/AdvReac Type Severity Reaction Status Date / Time butorphanol tartrate Allergy Severe Verified 11/03/16 16:47 [From Stadol] ketorolac tromethamine Allergy Intermediate Verified 11/03/16 16:47 [From Toradol] Medications: Current Medications Acetaminophen (Tylenol) 1,000 mg PO Q6H PRN PRN Reason: Headache/Fever or Mild Pain Last Admin: 11/01/17 21:02 Dose: 1,000 mg Artificial Tears (Tears Renewed 15ml Bottle) 0 drop EA EYE PRN PRN PRN Reason: Dry Eyes Last Admin: 11/01/17 16:03 Dose: 1 drop Benzonatate (Tessalon) 200 mg PO Q6H PRN PRN Reason: Cough Last Admin: 11/01/17 04:34 Dose: 200 mg Clonazepam (Klonopin) 1 mg PO BIDPRN PRN PRN Reason: Anxiety Last Admin: 11/01/17 23:43 Dose: 1 mg Clonidine (Catapres) 0.1 mg PO Q4H PRN PRN Reason: Systolic BP > 180 Clonidine (Catapres) 0.1 mg PO BIDPRN PRN PRN Reason: HIGH BLOOD PRESSURE Last Admin: 11/01/17 23:43 Dose: 0.1 mg Dextrose/Water (Dextrose 50%) 25 gm SLOW IVP PRN PRN PRN Reason: Hypoglycemia Diphenhydramine HCl (Benadryl) 25 mg IVP Q4H PRN PRN Reason: Itching Duloxetine HCl (Cymbalta) 120 mg PO HS BOYD Famotidine (Pepcid) 20 mg SLOW IVP Q12HR BOYD Last Admin: 11/01/17 20:50 Dose: 20 mg Glucagon (Glucagon) 1 mg IM PRN PRN PRN Reason: Hypoglycemia Hydralazine HCl (Apresoline) 10 mg SLOW IVP Q4H PRN PRN Reason: Systolic BP > 180 Dextrose/Water (D5w) 1,000 mls @ 0 mls/hr IV .Q0M PRN; As Directed PRN Reason: Hypoglycemia Cefepime HCl 2 gm/ Sodium (Chloride) 100 mls @ 200 mls/hr IVPB 0100,1300 BOYD Last Admin: 11/02/17 00:10 Dose: 100 mls Sodium Chloride (Normal Saline 0.9%) 1,000 mls @ 200 mls/hr IV .Q5H BOYD Last Admin: 11/02/17 05:26 Dose: Not Given Vancomycin HCl 1.5 gm/ Sodium (Chloride) 300 mls @ 200 mls/hr IVPB 1100,2300 BOYD Insulin Human Lispro (Humalog) 0 units SC .MODERATE SLIDING SC PRN PRN Reason: Moderate Correctional Scale Last Admin: 11/02/17 05:59 Dose: 4 unit Insulin Human Lispro (Humalog) 0 units SC .BEDTIME SLIDING SC PRN PRN Reason: Bedtime Correctional Scale Last Admin: 11/01/17 20:51 Dose: 3 unit Lorazepam (Ativan) 1 mg SLOW IVP Q4H PRN PRN Reason: Anxiety/Agitation Ondansetron HCl (Zofran Odt) 4 mg PO Q6H PRN PRN Reason: Nausea/Vomiting Ondansetron HCl (Zofran) 4 mg IVP Q6H PRN PRN Reason: Nausea/Vomiting Risperidone (Risperidone) 1 mg PO HS BOYD Sodium Chloride (Flush - Normal Saline) 10 ml IVF Q12HR [facility] Last Admin: 11/01/17 23:46 Dose: 10 ml Sodium Chloride (Flush - Normal Saline) 10 ml IVF PRN PRN PRN Reason: Saline Flush
[2017-11-02] MEDS: Famotidine/PF 20 mg/2ml Vial SLOW IVP SCH (09:55)
[2017-11-02] MEDS ORDERED: Vancomycin HCl 1.5 GM in Sodium Chloride 0.9% 250 ML 300 ML IVPB SCH (11:00)
--- NOTE | 2017-11-02 12:09 | PQF ---
CLINICAL DOCUMENTATION IMPROVEMENT CLARIFICATION FORM: ICD-10 Updated PLEASE DO AN ADDENDUM TO THE PROGRESS NOTE WITH ANY DOCUMENTATION UPDATES OR ADDITIONS AND CARRY THROUGH TO DC SUMMARY. THANK YOU. DATE: 11/02 ATTN: DR. NEHAL COTTRELL Please exercise your independent, professional judgment in responding to the clarification form. Clinical indicators are provided on the bottom of this form for your review. Please check appropriate box(s): [ ] Acute Respiratory Failure: [ ] with Hypoxia [ ] with Hypercapnia [ ] Acute Respiratory Failure due to: (etiology) [ ] Other diagnosis [ ] Unable to determine For continuity of documentation, please document condition throughout progress notes and discharge summary. Thank You. CLINICAL INDICATORS - SIGNS / SYMPTOMS / LABS ER PRESENTATION 10/31: FOUND UNRESPONSIVE AT HOME, UNKNOWN DOWN TIME, GLUCOSE > 500, RESPIRATORY FAILURE, HYPOXIC, BLUE AROUND MOUTH. ON ARRIVAL: 02 SAT ON 4L: 93%, PLACED ON FACE MASK: 95% ER MD DIAGNOSES 10/31: ASPIRATION, HYPOXIA, OPIOID OVERDOSE ATTENDING PHYSICIAN H&P 10/31: HX OF PRESENT ILLNESS: ...FOUND ON HER BED UNRESPONSIVE, BLUE AROUND THE LIPS, CONFUSED, UNABLE TO WALK. EMS PERSONNEL PLACED IO IV & GIVEN 1MG NARCAN. PATIENT OBSERVED W/IMPROVING SPONTANEOUS RESPIRATIONS & IMPROVING MENTAL STATUS. ASSESSMENT & PLAN: 4) ACUTE DYSPNEA. SUSPICION FOR POTENTIAL ASPIRATION EVENT. ...MONITOR FOR RECURRENCE OF WORSENING RESPIRATORY SYMPTOMS. CONTINUE OXYGEN SUPPLEMENTATION NEEDED TO MAINTAIN 02 SATS GREATER THAN OR EQUAL TO 90 % CXR 10/31: PULMONARY VASCULAR CONGESTION W/PERIHILAR & BIBASILAR INTERSTITIAL PROMINENCE SUGGESTS MILD INTERSTITIAL EDEMA. NURSING ADMISSION RESPIRATORY ASSESSMENT 10/31: ON NON-REBREATHER, 92% 02 SAT RISK FACTORS: OPIOID OVERDOSE HYPOXIA SUSPICION FOR ASPIRATION EVENT TREATMENTS: SUPPLEMENTAL OXYGEN (NON-REBREATHER 10/31 - 11/01; NASAL CANNULA 11/01 - PRESENT) MONITORING OF OXYGEN STATUS IV ANTIBIOTICS (CEFEPIME & VANCOMYCIN 10/31 - PRESENT) THANK YOU! Fe (This form is maintained as a part of the permanent medical record) 2014 [employer]. All Rights Reserved Fe Velez RN, [email or web address] [email or web address] Office: [phone] [facility]
[2017-11-02] MEDS: clonazePAM 1 MG TAB PO SCH ×2 (15:47→20:21)
[2017-11-02] MEDS: Gabapentin 300 MG CAP PO SCH ×2 (15:48→20:21)
[2017-11-02] MEDS: HumaLOG 300 UNITS/3 ML VIAL SC SCH (17:45)
[2017-11-02] MEDS: Carvedilol 6.25 MG TAB PO SCH (20:21)
[2017-11-02] MEDS: Famotidine 20 MG TAB PO SCH (20:22)
[2017-11-02] MEDS ORDERED: risperiDONE 1 MG TAB PO SCH (21:00)
[2017-11-02] MEDS ORDERED: Insulin Glargine 50 UNITS in Pre-Filled Syringe 1 EACH SC SCH (21:00)
[2017-11-02] MEDS ORDERED: OLANZapine 5 MG TAB PO SCH (21:00)
[2017-11-02] MEDS ORDERED: DULoxetine 60 MG CAP PO SCH (21:00)
[2017-11-03] MEDS: Acetaminophen 500 MG TAB PO PRN (05:38)
[2017-11-03] MEDS: Sodium Chloride 0.9% 1,000 ML IV SCH (05:39)
[2017-11-03] MEDS: HumaLOG 300 UNITS/3 ML VIAL SC PRN (05:40)
[2017-11-03] MEDS ORDERED: Levothyroxine Sodium 25 MCG TAB PO SCH (06:00)
[2017-11-03] MEDS: Gabapentin 300 MG CAP PO SCH (08:01)
[2017-11-03] MEDS: Carvedilol 6.25 MG TAB PO SCH (08:01)
[2017-11-03] MEDS: Famotidine 20 MG TAB PO SCH (08:01)
[2017-11-03] MEDS: clonazePAM 1 MG TAB PO SCH (08:02)
[2017-11-03] MEDS: HumaLOG 300 UNITS/3 ML VIAL SC SCH ×2 (08:05→12:49)
--- NOTE | 2017-11-03 08:45 | PDOC.PN ---
- Subjective Encounter Start Date: 11/03/17 Encounter Start Time: 08:45 Subjective: NAD - Objective Resuscitation Status: Resuscitation Status FULL:Full Resuscitation MAR Reviewed: Yes Vital Signs & Weight: Vital Signs (12 hours) Temp Pulse Resp BP BP Pulse Ox 11/03/17 08:06 97.0 F L 105 H 18 140/92 H 94 L 11/03/17 04:46 98.2 F 106 H 17 115/77 92 L I&O: 11/02/17 11/03/17 11/04/17 06:59 06:59 06:59 Intake Total 2650 1200 Balance 2650 1200 Result Diagrams: 11/02/17 04:00 11/02/17 04:00 Additional Labs: Accuchecks 11/03/17 11/02/17 11/02/17 04:13 19:11 16:10 POC Glucose 281 H 307 H 288 H 11/02/17 11:48 POC Glucose 243 H Phys Exam - Physical Examination HEENT: PERRLA, moist MMs Neck: no JVD Respiratory: no wheezing, no rales, no rhonchi Cardiovascular: RRR, no significant murmur, no rub Gastrointestinal: soft, non-tender, no distention Musculoskeletal: no edema, pulses present Dx/Plan (1) Rhabdomyolysis Code(s): M62.82 - RHABDOMYOLYSIS Status: Acute Qualifiers: Encounter type: initial encounter Comment: IVF @ 100 cc/hr. Will monitor CPK in the AM. (2) Encephalopathy acute Code(s): G93.40 - ENCEPHALOPATHY, UNSPECIFIED Status: Acute Comment: 2/2 Toxic metabolic syndrome. Patient overdosed on his pain medications. Continue 1: [address] will consult for psych screeners in the AM. (3) Acute respiratory failure Code(s): J96.00 - ACUTE RESPIRATORY FAILURE, UNSP W HYPOXIA OR HYPERCAPNIA Status: Resolved Qualifiers: Respiratory failure complication: hypoxia Qualified Code(s): J96.01 - Acute respiratory failure with hypoxia (4) Hyperglycemia due to type 2 diabetes mellitus Code(s): E11.65 - TYPE 2 DIABETES MELLITUS WITH HYPERGLYCEMIA Status: Acute Comment: Poorly controlled DM II, resume home Levemir @ 50CC. Continue insulin @ 10 TID WM. Will monitor Glucose and keep it between 140- 180. (5) Bipolar 1 disorder Code(s): F31.9 - BIPOLAR DISORDER, UNSPECIFIED Status: Chronic Comment: Resume home regimen (6) Chronic pain syndrome Status: Chronic Comment: will give patient pain medication judiciously since patient seem to abuse pain medications. (7) DM type 2 (diabetes mellitus, type 2) Status: Chronic Qualifiers: Diabetes mellitus correction insulin use: with termite control service representative use Diabetes mellitus complication status: with neurologic complications Diabetes mellitus complication detail: with polyneuropathy Qualified Code(s): E11.42 - Type 2 diabetes mellitus with diabetic polyneuropathy; Z79.4 - intermediate frame tender (current) use of insulin; Z79.4 - intermediate frame tender (current) use of insulin; Z79.4 - intermediate frame tender ( current) use of insulin; Z79.4 - intermediate frame tender (current) use of insulin Comment: Continue current treatment. (8) Hypertension Code(s): I10 - ESSENTIAL (PRIMARY) HYPERTENSION Status: Chronic Qualifiers: Hypertension type: essential hypertension Qualified Code(s): I10 - Essential (primary) hypertension (9) Hypothyroidism Code(s): E03.9 - HYPOTHYROIDISM, UNSPECIFIED Status: Chronic Qualifiers: Hypothyroidism type: unspecified Qualified Code(s): E03.9 - Hypothyroidism , unspecified Comment: Continue Levothyroxine. (10) Morbid obesity with BMI of 40.0-44.9, adult Code(s): E66.01 - MORBID (SEVERE) OBESITY DUE TO EXCESS CALORIES; Z68.41 - BODY MASS INDEX (BMI) 40.0-44.9, ADULT Status: Chronic - Plan * . Review of Systems - Medications/Allergies Allergies/Adverse Reactions: Allergies Allergy/AdvReac Type Severity Reaction Status Date / Time butorphanol tartrate Allergy Severe Verified 11/03/16 16:47 [From Stadol] ketorolac tromethamine Allergy Intermediate Verified 11/03/16 16:47 [From Toradol]
[2017-11-03] MEDS ORDERED: Allopurinol 100 MG TAB PO SCH (09:00)
[2017-11-03] MEDS ORDERED: Atorvastatin Calcium 20 MG TAB PO SCH (09:00)
[2017-11-03 11:47] VITALS: BP 132/84; TEMP 98
--- NOTE | 2017-11-03 22:31 | PRG ---
DATE OF SERVICE: 11/03/2017 SUBJECTIVE: The patient was seen and examined by me this morning. The patient does not have any acu te distress. The patient states that she is feeling much better. The patient is stable to be discha rged home. OBJECTIVE: VITAL SIGNS: Temperature is 98.0, pulse is 103, respiratory rate of 18, heart rate is 103 and oxygen saturation is 90, blood pressure is 132/84. Physical examination is within normal limit.
--- NOTE | 2017-11-03 23:39 | DIS ---
DISCHARGE DIAGNOSES: 1. Acute encephalopathy due to toxic metabolic syndrome. 2. Rhabdomyolysis. 3. Acute respiratory failure. 4. Hyperglycemia due to type 2 diabetes mellitus. 5. Bipolar 1 disorder. 6. Chronic back pain syndrome. 7. Diabetes mellitus type 2. 8. Hypertension. 9. Hypothyroidism. 10. Morbid obesity. HOSPITAL COURSE: This is a 47-year-old female who presented to the hospital and was found to be in acute respiratory failure. Per , the patient had taken an overdose of her medication most likely opioids. Patient was resuscitated in the EEG and patient was admitted for encephalopathy due to toxic metabolic syndrome. Patient states that she took her medication unintentionally and she did not mean to kill herself. Patient had rhabdomyolysis in the 8000s. IV fluids were started. The patient's rhabdomyolysis resolved patient's glucose and blood pressure were elevated and they were treated with insulin sliding scale and blood pressure medications. DISCHARGE MEDICATIONS: Please kindly refer to electronic medical records for discharge medications. DISCHARGE INSTRUCTION: Disposition: Patient was discharged in a good and stable condition. Patient was ambulating and did not have any distress. The patient was advised to follow up with primary care doctor and also to be very careful with taking her medications. We spoke to the patient's who was by the bedside and he agreed to help the patient with her medications. Discharge encounter lasted about 38 minutes. JOELLE
== END 2017-11-03 15:17 | disposition home or self-care (01) | DRG 917 ==
LOC: ERS 15:35 → T4-B 22:22
PROVIDERS: ADMIT Family Medicine; ATTEND Family Medicine
DX: T40.601A Poisoning by unspecified narcotics, accidental (unintentional), initial encounter (principal); G92 Toxic encephalopathy; J96.01 Acute respiratory failure with hypoxia; E87.2 Acidosis; M62.82 Rhabdomyolysis; Z68.41 Body mass index [BMI] 40.0-44.9, adult; Z76.5 Malingerer [conscious simulation]; Z79.4 Long term (current) use of insulin; E78.5 Hyperlipidemia, unspecified; I10 Essential (primary) hypertension; G89.29 Other chronic pain; M54.9 Dorsalgia, unspecified; E03.9 Hypothyroidism, unspecified; F31.9 Bipolar disorder, unspecified; F20.9 Schizophrenia, unspecified; E11.65 Type 2 diabetes mellitus with hyperglycemia; E66.01 Morbid (severe) obesity due to excess calories
CPT/HCPCS: 36415; 36416; 70450; 71045; 80053; 80202; 80306; 80307; 81003; 81015; 81025; 82330; 82550; 82553; 82803; 83605; 83880; 84146; 84443; 84484; 85007; 85025; 85027; 93005; 94760; A4216; A4353; G8978-GP-CI; G8979-GP-CI; G8980-GP-CI; J0295; J0692; J2060; J2310; J3370; J7050; S0028

== ENCOUNTER 2017-12-05 09:32 | Inpatient (IN) | payer OTHER ==
[2017-12-05 11:10] LABS: #Eosinphils 0.2 thou/uL (0.0-0.7); #Monocytes 1.3 thou/uL (0.11-0.59); #Neutrophils 11.2 thou/uL (1.40-6.50); %Eosinophils 1.1 % (0.0-10.0); %Lymphocytes 18.9 % (21.0-51.0); %Monocytes 8.1 % (0.0-10.0); %Neutrophils 71.8 % (42.0-75.0); Band 30 % (5-11); Hemoglobin 12.6 g/dL (12.0-16.0); Lymphocytes 26 % (21-51); MDiff Complete? YES; Mean Corpuscular HGB CONC 34.2 g/dL (32.0-36.0); Mean Corpuscular Hemoglobin 30.8 pg (27.0-31.0); Mean Corpuscular Volume 90.1 fL (78.0-98.0); Mean Platelet Volume 9.3 fL (7.4-10.4); Monocytes 3 % (0-10); Neutrophil 41 % (42-75); PLT Morphology Comment Appears Decreased; Platelet Count 106 thou/uL (130-400); RBC Distribution Width 12.8 % (11.5-14.5); RBC Morphology Normal; Red Blood Cell (RBC) Count 4.09 mill/uL (4.20-5.40); White Blood Cell (WBC) Count 15.6 thou/uL (4.8-10.8)
[2017-12-05] MEDS ORDERED: Nitroglycerin 2% Ointment 1 INCH/1 GM Packet ONE (11:36)
[2017-12-05 11:40] LABS: Bilirubin Negative (Negative); Blood, Urine Small (Negative); Clarity CLEAR (Clear); Glucose, Urine (Dipstick) 500 mg/dL (Negative); Leukocyte Negative (Negative); Nitrite Negative (Negative); Protein, Urine (Dipstick) Negative (Neg-Trace); Specific Gravity, Urine 1.021 (1.002-1.036)
[2017-12-05 11:42] LABS: Bacteria/HPF None Seen HPF (None Seen); Hyaline Casts/LPF 0-3 HYALINE CAST LPF (0-3 Hyaline); Pathc Cast-AUWi Flag 0.29 (0-2.49); Squamous Epithelial 0-3 HPF (0-3); WBC/HPF None Seen HPF (0-3)
[2017-12-05] MEDS ORDERED: Acetaminophen 325 MG TAB ONE (11:52)
[2017-12-05 11:53] LABS: Albumin 3.8 g/dL (3.5-5.0); Calcium 9.6 mg/dL (7.8-10.44); Chloride 103 mmol/L (98-107); Glucose 268 mg/dL (70-105); Potassium 4.8 mmol/L (3.5-5.1); Sodium 134 mmol/L (136-145)
[2017-12-05 11:55] LABS: AST (SGOT) 62 U/L (5-34); Alkaline Phosphatase 147 U/L (40-150); Anion Gap 19 mmol/L (10-20); BUN (Urea Nitrogen) 10 mg/dL (7.0-18.7); Bilirubin, Total 0.9 mg/dL (0.2-1.2); Calc. Creatinine Clearance 0 mL/min (70-130); Carbon Dioxide 17 mmol/L (22-29); Estimated GFR-MDRD 75; Globulin 3.5 g/dL (2.4-3.5); Protein, Total 7.3 g/dL (6.0-8.3)
[2017-12-05 12:09] LABS: ALT (SGPT) 46 U/L (8-55)
--- NOTE | 2017-12-05 13:46 | RAD ---
RADIOGRAPH CHEST 1 VIEW: Date: 12/05/2017 Time: 12:55 p.m. HISTORY: A 47-year-old female with cough and fever. COMPARISON: 10/31/2017 FINDINGS: There is a new finding of heterogeneous diffusely increased attenuation of most of the right lung fie lds, compared to the left. Previously seen right-sided central vascular catheter ascending the right neck is no longer present. No pneumothorax. Prominence of the right hilum is again noted. Cardiac size is at the upper limits of normal. No pulmonary edema or pneumothorax. IMPRESSION: Right-sided infiltrates: evidence for right-sided pneumonia. NAZ [] POS: MAX
[2017-12-05 14:28] LABS: Base Excess-Venous 0.1 mmol/L (0 (+/- 2.5)); Bicarbonate (HCO3v) 22.6 mmol/L (1.0-85.0); CO2 Tension (PvCO2) 29.8 mmHg (41.0-51.0); Calcium, Ionized 1.04 mmol/L (1.12-1.32); Hemoglobin - Calc 13.7 g/dL (12.0-18.0); O2 Tension (PvO2) 95.7 mmHg (35.0-45.0); Potassium 3.9 mmol/L (3.4-4.7); T. Carbon Dioxide 23.5 mmol/L (1.0-85.0); pH (Venous) 7.488 (7.35-7.45); vO2 Saturation-calc 98.1 % (94-98)
[2017-12-05] MEDS ORDERED: Insulin Regular 300 UNITS/3 ML VIAL ONE (14:34)
[2017-12-05 14:42] LABS: Magnesium 1.7 mg/dL (1.6-2.6); Phosphorus 3.3 mg/dL (2.3-4.7)
[2017-12-05] MEDS ORDERED: Dextrose 5% in Water 1,000 ML IV PRN (14:43)
[2017-12-05] MEDS ORDERED: Acetaminophen 325 MG TAB PO PRN (14:43)
[2017-12-05] MEDS ORDERED: Dextrose 50% Abboject 50 ML SYRINGE SLOW IVP PRN (14:43)
[2017-12-05] MEDS ORDERED: Ondansetron HCl/PF 4 MG/2 ML Vial IVP PRN (14:43)
[2017-12-05] MEDS ORDERED: HumaLOG 300 UNITS/3 ML VIAL SC PRN (14:43)
[2017-12-05 14:50] LABS: Troponin I Less than 0.010 ng/mL (< 0.028)
[2017-12-05 14:52] LABS: CKMB 16.2 ng/mL (0-6.6)
[2017-12-05] MEDS ORDERED: cefTRIAXone\\ROCEPHIN 1 GM in Sodium Chloride 0.9% 100 ML IVPB SCH (15:30)
[2017-12-05] MEDS ORDERED: Azithromycin 500 MG in Sodium Chloride 0.9% 250 ML 250 ML IVPB SCH (16:00)
[2017-12-05] MEDS: Sodium Chloride 0.9% 1,000 ML IV SCH (16:16)
[2017-12-05 16:25] VITALS: BMI 42.3
[2017-12-05] MEDS: traMADol HCl 50 MG TAB PO PRN (17:45)
--- NOTE | 2017-12-05 18:07 | HP ---
PRIMARY CARE PROVIDER: Noah Stewart M.D. CHIEF COMPLAINT: The patient referred to the [facility] by [facility] tme for weakness and elevated blood sugar. HISTORY OF PRESENT ILLNESS: The patient has a multiplicity of complaints. She says she has been fee ling bad for over a week. She has had dizziness and felt like she was going to pass out. She states she is dehydrated because she has not been drinking much water. She complains of a hernia on her ab dominal wall. She has had a low-grade fever, which she is unable to document, occasional chills, and questionable night sweats. She has had a stabbing pain in her epigastrium, brief, no relation to ac tivity, etc. She has had a cough for 1-2 weeks nonproductive for have some wheezes and some dyspnea on exertion. She has had some nausea and diarrhea with the present illness. PAST MEDICAL HISTORY: Reveals multiple admissions to the hospital. She has a history of chronic jl cotic use, drug seeking behavior, diabetes mellitus type 2; insulin requiring, dyslipidemia, hyperten annalise, chronic back pain, question of a CVA without documentation, bipolar, schizophrenia. PAST SURGICAL HISTORY: Status post x3, left elbow surgery, lumbar spine surgery, carpal tu nnel release on the left, corrective eye surgery on the right x2, laparoscopic cholecystectomy, and p artial hysterectomy. PSYCHIATRIC HISTORY: Bipolar disorder, schizophrenia with inpatient psychiatric history 4 years ago. CURRENT MEDICATIONS: Clonidine 0.3 mg twice a day, Coreg 6.25 mg twice a day, clonazepam 2 mg 3 time s a day, allopurinol 100 mg a day, duloxetine 120 mg at bedtime, gabapentin 600 mg 3 times a day, lev othyroxine 25 mcg a day, Protonix 40 mg a day, tizanidine 8 mg 3 times a day, Levemir 100 units subq twice a day, NovoLog per sliding scale, tramadol 300 mg once a day extended release, atorvastatin 20 mg a day, Bydureon 2 mg subcu takes on Fridays, and [place] 5/325 one four times a day. SOCIAL HISTORY: Single, has a roommate. Denies alcohol or tobacco. CODE STATUS: FULL CODE status. No next of kin given. FAMILY HISTORY: Positive for coronary artery disease in her mother, sister who of a brain aneur ysm in her 40s. REVIEW OF SYSTEMS: GENERAL: No fainting. No headache, but some dizzy, lightheaded feeling. EYES: Poor vision. She is supposed to wear glasses but so she does not wear them. She has bl urred vision at times. ENT: No ear pain or drainage. No nose bleeding. No trouble swallowing. CARDIAC: See the aforementioned stabbing in her epigastrium. No pressure, chest pain, no orthopnea, no paroxysmal nocturnal dyspnea. RESPIRATIONS: Cough 1-2 weeks. No production, dyspnea on exertion, mild wheezing. GASTROINTESTINAL: Some nausea and diarrhea. No abdominal pain, no vomiting, no blood in her stools. GENITOURINARY: No hematuria or dysuria. MUSCULOSKELETAL: She states she has neuropathy in her left hand and her right leg. She has had no h istory of muscular pain. She does have joint pain in her knees. NEUROLOGIC: Diabetic neuropathy. No history of strokes or seizures. PSYCHIATRIC: Bipolar, schizophrenia, 7 to 8 years, on multiple medications. SKIN: No bruising, bleeding or rash. HEME/LYMPH: No tender or swollen lymph nodes in axilla, inguinal or cervical area. PHYSICAL EXAMINATION: VITAL SIGNS: Blood pressure 126/61, pulse 85, respirations 24, pulse ox 89 on room air. It is in th e mid 90s on 3 liters of O2. GENERAL: She is alert, oriented, and cooperative. HEENT: Reveal pupils equal, round. Extraocular movements are intact. Sclerae white. Tympanic memb ranes are clear. Nose is clear. Oral mucous membranes are wet. NECK: Supple, without jugular venous distention, adenopathy, thyromegaly or bruits. CHEST: Clear to auscultation and percussion. There were no focal findings. HEART: Had a regular rate and rhythm. First and second heart sounds are clear. There are no murmur s or gallops. ABDOMEN: Soft, bowel sounds are normal. There is no hepatosplenomegaly, no mass, no rebound, no bru its. EXTREMITIES: Reveal 1-2+ edema with clubbing, no cyanosis. PULSES: Carotid, radial, femoral, and dorsalis pedis pulses intact and symmetric. SKIN: Warm and dry without bruises or rash. HEME/LYMPH: Reveals no tender or swollen lymph nodes in axilla, inguinal or cervical area. NEUROLOGICAL: Cranial nerves II-XII are intact. Moves all extremities. Toes downgoing. DTRs diffu sely diminished. IMAGING DATA: Chest x-ray showed right-sided nonconfluent infiltrate by Radiology. No cardiomegaly or CHF. EKG: Regular sinus rhythm within normal limits, reviewed by me. LABORATORY DATA: White count 15.6 with 30% bands, hemoglobin 12.6, platelet count 106,000. Sodium 1 34, potassium 4.8, chloride 103, CO2 of 17, glucose 268, creatinine 0.82, BUN 10. Urine showed 4-6 r ed cells, no white cells with some glycosuria, pertinent to that hemoglobin A1c and a beta hydroxybut yrate have been ordered. ADMITTING DIAGNOSES: 1. Diabetes mellitus type 2, uncontrolled. 2. Pneumonia with mild hypoxemia. 3. Acidosis. Lactic acid has been ordered. 4. Hypertension. 5. Bipolar disorder. 6. Chronic pain syndrome. 7. Chronic narcotic use with a history of drug seeking behavior 8. Hypothyroidism, on therapy. PLAN: 1. Blood cultures. 2. IV Zithromax and IV Rocephin for pneumonia. 3. Continue Levemir, Accu-Cheks a.c. and at bedtime with moderate sliding scale with lispro. 4. Selected home medicines. 5. As mentioned early beta hydroxybutyric acid and hemoglobin A1c.
[2017-12-05 18:39] LABS: Lactic Acid 3.6 mmol/L (0.5-2.2)
[2017-12-05] MEDS ORDERED: INSULIN DETEMIR 100 UNIT SC SCH (21:00)
[2017-12-05] MEDS ORDERED: DULoxetine 60 MG CAP PO SCH (21:00)
[2017-12-05] MEDS: cloNIDine 0.3 MG TAB PO SCH (21:57)
[2017-12-05] MEDS: Carvedilol 6.25 MG TAB PO SCH (21:57)
[2017-12-05] MEDS: Gabapentin 400 MG CAP PO SCH (21:58)
[2017-12-05] MEDS: Allopurinol 100 MG TAB PO SCH (21:58)
[2017-12-05] MEDS: Insulin Glargine 100 UNITS in Pre-Filled Syringe SC SCH (21:59)
[2017-12-06] MEDS: traMADol HCl 50 MG TAB PO PRN ×2 (00:14→06:19)
[2017-12-06] MEDS: Sodium Chloride 0.9% 1,000 ML IV SCH ×2 (00:16→06:19)
[2017-12-06 05:13] LABS: Anion Gap 15 mmol/L (10-20); BUN (Urea Nitrogen) 7 mg/dL (7.0-18.7); Calc. Creatinine Clearance 174 mL/min (70-130); Calcium 9.7 mg/dL (7.8-10.44); Carbon Dioxide 22 mmol/L (22-29); Chloride 106 mmol/L (98-107); Estimated GFR-MDRD 83; Glucose 193 mg/dL (70-105); Potassium 3.4 mmol/L (3.5-5.1); Sodium 140 mmol/L (136-145)
[2017-12-06 05:43] LABS: #Eosinphils 0.1 thou/uL (0.0-0.7); #Lymphocytes 2.9 thou/uL (1.20-3.40); #Monocytes 0.8 thou/uL (0.11-0.59); #Neutrophils 6.5 thou/uL (1.40-6.50); %Basophils 0.1 % (0.0-1.0); %Eosinophils 1.2 % (0.0-10.0); %Lymphocytes 28.3 % (21.0-51.0); %Monocytes 7.5 % (0.0-10.0); %Neutrophils 62.9 % (42.0-75.0); Hemoglobin 13.2 g/dL (12.0-16.0); Mean Corpuscular HGB CONC 34.9 g/dL (32.0-36.0); Mean Corpuscular Hemoglobin 31.7 pg (27.0-31.0); Mean Corpuscular Volume 90.8 fL (78.0-98.0); Mean Platelet Volume 9.1 fL (7.4-10.4); Platelet Count 208 thou/uL (130-400); Red Blood Cell (RBC) Count 4.18 mill/uL (4.20-5.40); White Blood Cell (WBC) Count 10.3 thou/uL (4.8-10.8)
[2017-12-06] MEDS ORDERED: Levothyroxine Sodium 25 MCG TAB PO SCH (07:30)
[2017-12-06 08:40] VITALS: BP 152/87; TEMP 98.5
[2017-12-06] MEDS ORDERED: TRAMADOL HCL 300 MG PO SCH (09:00)
[2017-12-06] MEDS ORDERED: Atorvastatin Calcium 20 MG TAB PO SCH (09:00)
[2017-12-06] MEDS ORDERED: Enoxaparin Sodium 40 MG/0.4 ML SYRINGE SC SCH (09:00)
[2017-12-06] MEDS: cloNIDine 0.3 MG TAB PO SCH (09:03)
[2017-12-06] MEDS: Gabapentin 400 MG CAP PO SCH (09:03)
[2017-12-06] MEDS: Allopurinol 100 MG TAB PO SCH (09:03)
[2017-12-06] MEDS: Carvedilol 6.25 MG TAB PO SCH (09:04)
[2017-12-06] MEDS: Insulin Glargine 100 UNITS in Pre-Filled Syringe SC SCH (09:54)
--- NOTE | 2017-12-06 12:01 | DIS ---
TRANSFER OF CARE NOTE PRIMARY CARE PROVIDER: Dr. Noah Stewart DATE OF ADMISSION: 12/05/2017 DATE OF DISCHARGE: The patient left AMA on the morning of 12/06/2017. FINAL DIAGNOSES: 1. Possible pneumonia. 2. Diabetes mellitus type 2, uncontrolled. 3. Lactic acidosis. 4. Hypertension. DISCHARGE MEDICATIONS: None, left AMA. CODE STATUS: Full. ALLERGIES: STADOL, TORADOL. HOSPITAL COURSE: The patient admitted out of the emergency room with complaints for weakness and freda vated blood sugar. She states she thought she was dehydrated because she was not drinking enough. Physical examination was really totally unremarkable. She did have a pulse ox of 89 on room air. Ch est was perfectly clear. White cell count was elevated at 59. Chest x-ray per my interpretation wit h no definite infiltrate. Radiology read it as possible infiltrate on the right side. Blood culture s were ordered which are negative to-date. Her white count was down to 10.3 this morning. The patient told the staff that she had to go home and take care of her house and she left AMA before I could see her. CONSULTATIONS: None. PROCEDURES: None.
== END 2017-12-06 10:15 | disposition left against medical advice (07) | DRG 194 ==
LOC: ERS 09:32 → T4-B 15:56
PROVIDERS: ADMIT Internal Medicine; ATTEND Internal Medicine
DX: J18.9 Pneumonia, unspecified organism (principal); E87.2 Acidosis; E11.65 Type 2 diabetes mellitus with hyperglycemia; I10 Essential (primary) hypertension; F31.9 Bipolar disorder, unspecified; G89.4 Chronic pain syndrome; E03.9 Hypothyroidism, unspecified; Z53.21 Procedure and treatment not carried out due to patient leaving prior to being seen by health care provider
CPT/HCPCS: 36415; 36416; 71045; 80048; 80053; 81003; 81015; 82010; 82330; 82553; 82803; 83605; 83735; 84100; 84484; 85025; 87040; 93005; 96360; J0456; J0696; J1650; J1815; J7050

== ENCOUNTER 2017-12-10 14:36 | Emergency (ER) | payer OTHER ==
[2017-12-10 16:45] LABS: Bilirubin Negative (Negative); Blood, Urine Negative (Negative); Clarity CLEAR (Clear); Glucose, Urine (Dipstick) 250 mg/dL (Negative); Leukocyte Negative (Negative); Nitrite Negative (Negative); Protein, Urine (Dipstick) Negative (Neg-Trace); Specific Gravity, Urine 1.019 (1.002-1.036); Urobilinogen 0.2 mg/dL (0.2-1.0)
[2017-12-10 17:05] LABS: #Basophils 0.1 thou/uL (0.0-0.2); #Eosinphils 0.2 thou/uL (0.0-0.7); #Lymphocytes 3.5 thou/uL (1.20-3.40); #Monocytes 0.9 thou/uL (0.11-0.59); #Neutrophils 4.8 thou/uL (1.40-6.50); %Basophils 0.8 % (0.0-1.0); %Eosinophils 2.2 % (0.0-10.0); %Lymphocytes 37.2 % (21.0-51.0); %Neutrophils 50.8 % (42.0-75.0); Hemoglobin 14.2 g/dL (12.0-16.0); Mean Corpuscular HGB CONC 35.2 g/dL (32.0-36.0); Mean Corpuscular Hemoglobin 32.1 pg (27.0-31.0); Mean Corpuscular Volume 91.2 fL (78.0-98.0); Mean Platelet Volume 7.9 fL (7.4-10.4); Platelet Count 236 thou/uL (130-400); RBC Distribution Width 12.6 % (11.5-14.5); Red Blood Cell (RBC) Count 4.41 mill/uL (4.20-5.40); White Blood Cell (WBC) Count 9.4 thou/uL (4.8-10.8)
[2017-12-10 17:19] LABS: ALT (SGPT) 51 U/L (8-55); AST (SGOT) 49 U/L (5-34); Albumin 4.4 g/dL (3.5-5.0); Alkaline Phosphatase 134 U/L (40-150); Anion Gap 17 mmol/L (10-20); BUN (Urea Nitrogen) 11 mg/dL (7.0-18.7); Bilirubin, Total 0.4 mg/dL (0.2-1.2); Calc. Creatinine Clearance 0 mL/min (70-130); Calcium 10.1 mg/dL (7.8-10.44); Carbon Dioxide 23 mmol/L (22-29); Chloride 102 mmol/L (98-107); Estimated GFR-MDRD 74; Globulin 3.8 g/dL (2.4-3.5); Glucose 183 mg/dL (70-105); Lipase 17 U/L (8-78); Potassium 3.9 mmol/L (3.5-5.1); Protein, Total 8.2 g/dL (6.0-8.3); Sodium 138 mmol/L (136-145)
== END 2017-12-10 18:05 | disposition home or self-care (01) ==
LOC: ERS 14:36
DX: R10.9 Unspecified abdominal pain (principal); E11.9 Type 2 diabetes mellitus without complications; E78.5 Hyperlipidemia, unspecified; I10 Essential (primary) hypertension; F20.9 Schizophrenia, unspecified; E03.9 Hypothyroidism, unspecified; F31.9 Bipolar disorder, unspecified; F41.9 Anxiety disorder, unspecified; Z86.73 Personal history of transient ischemic attack (TIA), and cerebral infarction without residual deficits; Z79.4 Long term (current) use of insulin; Z79.899 Other long term (current) drug therapy; Z79.891 Long term (current) use of opiate analgesic
CPT/HCPCS: 36415; 80053; 81003; 83690; 85025; 99284

== ENCOUNTER 2017-12-25 09:08 | Emergency (ER) | payer OTHER ==
[2017-12-25] MEDS ORDERED: Lorazepam 1 MG TAB ONE (09:50)
== END 2017-12-25 10:05 | disposition home or self-care (01) ==
LOC: ERS 09:08
DX: F41.9 Anxiety disorder, unspecified (principal); E11.9 Type 2 diabetes mellitus without complications; E78.5 Hyperlipidemia, unspecified; Z86.73 Personal history of transient ischemic attack (TIA), and cerebral infarction without residual deficits; F31.9 Bipolar disorder, unspecified; F20.9 Schizophrenia, unspecified; Z79.899 Other long term (current) drug therapy
CPT/HCPCS: 99283

== ENCOUNTER 2018-04-01 18:04 | Inpatient (IN) | payer OTHER ==
[2018-04-01] MEDS ORDERED: Naloxone HCl 0.4 mg/ml Vial ONE (18:10)
[2018-04-01 18:35] LABS: Actual Bicarbonate (HCO3a) 22.6 mEq/L (22-28); Analyzer IN Cardio ER; Base Excess (BEa) -1.2 mEq/L (-2.0 to +3.0); CO2 Tension 35.2 mmHg (35.0-45.0); Carboxyhemoglobin (COHb) 0.5 gm% (0.0-3.0); Hemoglobin (Hb) 13.9 g/dL (12.0-16.0); O2 Tension (PaO2) 63.7 mmHg (80.0-100.0); Potassium - ABG Lab 4.48 mmol/L (3.70-5.30); pH, Arterial 7.43 (7.35-7.45)
[2018-04-01 18:36] LABS: #Basophils 0.1 thou/uL (0.0-0.2); #Eosinphils 0.1 thou/uL (0.0-0.7); #Lymphocytes 4.3 thou/uL (1.20-3.40); #Monocytes 0.8 thou/uL (0.11-0.59); #Neutrophils 4.2 thou/uL (1.40-6.50); %Basophils 0.9 % (0.0-1.0); %Eosinophils 1.4 % (0.0-10.0); %Lymphocytes 45.3 % (21.0-51.0); %Monocytes 8.4 % (0.0-10.0); Hemoglobin 14.2 g/dL (12.0-16.0); Mean Corpuscular HGB CONC 34.3 g/dL (32.0-36.0); Mean Corpuscular Hemoglobin 30.3 pg (27.0-31.0); Mean Corpuscular Volume 88.3 fL (78.0-98.0); Mean Platelet Volume 8.8 fL (7.4-10.4); Platelet Count 293 thou/uL (130-400); RBC Distribution Width 12.9 % (11.5-14.5); Red Blood Cell (RBC) Count 4.69 mill/uL (4.20-5.40); White Blood Cell (WBC) Count 9.6 thou/uL (4.8-10.8)
[2018-04-01 18:42] LABS: Bilirubin Negative (Negative); Blood, Urine Small (Negative); Clarity CLEAR (Clear); Glucose, Urine (Dipstick) 500 mg/dL (Negative); Leukocyte Negative (Negative); Nitrite Negative (Negative); Protein, Urine (Dipstick) 30 mg/dL (Neg-Trace); Specific Gravity, Urine 1.024 (1.002-1.036); Urobilinogen 0.2 mg/dL (0.2-1.0)
[2018-04-01 18:44] LABS: Bacteria/HPF None Seen HPF (None Seen); Hyaline Casts/LPF 4-6 HYALINE CAST LPF (0-3 Hyaline); Pathc Cast-AUWi Flag 0.43 (0-2.49); WBC/HPF None Seen HPF (0-3)
[2018-04-01 18:46] LABS: Puncture Site LRA
[2018-04-01 18:49] LABS: Cocaine Metabolite Screen Not Detected (NotDetected); Medtox Reader # READER 4; Phencyclidine (PCP) Not Detected (NotDetected); THC/Cannabinoid Screen Not Detected (NotDetected)
[2018-04-01 18:50] LABS: Amphetamine Not Detected (NotDetected); Barbiturates Screen Not Detected (NotDetected); Benzodiazepine Screen Not Detected (NotDetected); Medtox Control Line Valid? VALID (VALID); Methadone Not Detected (NotDetected); Methamphetamine Not Detected (NotDetected); Opiate Screen Not Detected (NotDetected); Oxycodone Screen Not Detected (NotDetected); Tricyclic Screen Not Detected (NotDetected)
[2018-04-01 18:52] LABS: Acetaminophen Less than 6.0 mcg/mL (10.0-30.0); Alcohol Less than 10 mg/dL (Less than 10); Lipase 43 U/L (8-78); Salicylate Less than 8.0 mg/dL (15.0-30.0)
[2018-04-01 18:54] LABS: ALT (SGPT) 47 U/L (8-55); AST (SGOT) 39 U/L (5-34); Alkaline Phosphatase 120 U/L (40-150); Anion Gap 17 mmol/L (10-20); BUN (Urea Nitrogen) 15 mg/dL (7.0-18.7); Bilirubin, Total 0.5 mg/dL (0.2-1.2); Calc. Creatinine Clearance 0 mL/min (70-130); Calcium 9.8 mg/dL (7.8-10.44); Carbon Dioxide 20 mmol/L (22-29); Chloride 100 mmol/L (98-107); Estimated GFR-MDRD 40; Globulin 2.9 g/dL (2.4-3.5); Glucose 387 mg/dL (70-105); Potassium 4.4 mmol/L (3.5-5.1); Protein, Total 6.9 g/dL (6.0-8.3); Sodium 133 mmol/L (136-145)
[2018-04-01] MEDS ORDERED: Naloxone HCl 2 MG in Sodium Chloride 0.9% 500 ML IV SCH (19:45)
--- NOTE | 2018-04-01 20:14 | RAD ---
ONE VIEW CHEST: Comparison: 12-05-17 History: Altered mental status. FINDINGS: Portable supine chest radiograph demonstrates right rotation of the patient. The heart is enlarged. P ulmonary vessels are prominent. Asymmetric increased opacification of the left hemithorax may be due to technique and position. Left sided effusion cannot be completely excluded. Chronic interstitial ch anges are noted. No pneumothorax or osseous abnormality. IMPRESSION: Asymmetric opacification left hemithorax which is presumed to be due to positioning and technique. Tw o view chest radiograph would be beneficial. POS: [facility]
--- NOTE | 2018-04-01 20:29 | CT ---
NONCONTRAST CT HEAD: Date: 04-01-18 History: Altered mental status, hypotension, dizziness. Comparison: 10-31-17 FINDINGS: There is no evidence of hemorrhage, acute infarction, mass effect, or midline shift. Ventricular syst em is normal in size, shape, and position. Visualized paranasal sinuses and mastoid air cells are lacey ar. There has been no interval change when compared to the prior exam. IMPRESSION: No acute intracranial abnormalities demonstrated. POS: [facility]
[2018-04-01] MEDS ORDERED: Piperacillin/Tazobactam 4.5 GM VIAL ONE (20:36)
--- NOTE | 2018-04-01 22:24 | CT ---
CT ABDOMEN WITH CONTRAST CT PELVIS WITH CONTRAST: Comparison: 11-04-16 History: Hypertension, dizziness. Fever. Chills. Technique: Abdomen and pelvic CT are performed with IV contrast. Enteric contrast was not administere d. Coronal reformatted images are submitted for interpretation. FINDINGS: Chronic changes in the lung bases. Heart size is normal. No pericardial effusion. The descending thor acic aorta and abdominal aorta have a normal caliber. No periaortic fat stranding. Surgically absent gallbladder. Portal vein is patent. Hypoattenuation of the liver due to hepatic steatosis. There is mild hepatomegaly. Spleen, pancreas, and adrenal glands have appropriate enhancement. No gastrohepatic, retrocrural or periportal lymphadenopathy. Symmetric enhancement of the kidneys. Bilaterally, no obstructive uropathy. Mild induration of the of the anterior subcutaneous fat, nonspecific. No mesenteric mass, lymphadenopathy, free air or free fluid. Limited evaluation of the alimentary canal due to lack of oral contrast administration. No evidence o f bowel obstruction. Ileocecal junction is normal. Normal caliber appendix. Scattered fecal material in a nondistended, nondilated colon. No evidence of diverticulitis. Mucosal prominence of the left he micolon likely due to inadequate distention. PELVIC CT: Surgically absent uterus. Left ovary appears to be present and unchanged. Possible follicle. No pelvi c mass, lymphadenopathy, free air or free fluid. Unremarkable urinary bladder. No lytic or blastic lesions in the osseous structures. IMPRESSION: No acute abnormality in the abdomen or pelvis. POS: [facility]
[2018-04-01] MEDS ORDERED: Levothyroxine Sodium 75 MCG TAB PO SCH (22:45)
[2018-04-02] MEDS ORDERED: Dexamethasone 4 mg/ml Vial ONE (00:39)
[2018-04-02] MEDS ORDERED: Bisacodyl 5 MG TAB PO PRN (01:15)
[2018-04-02] MEDS ORDERED: Senokot S 8.6-50 MG TAB PO PRN (01:15)
[2018-04-02] MEDS ORDERED: Acetaminophen 325 MG TAB PO PRN (01:15)
[2018-04-02] MEDS ORDERED: Sodium Chloride 0.9% 1,000 ML IV SCH ×2 (01:15→08:00)
[2018-04-02] MEDS ORDERED: Calcium Carbonate 500 MG ChewTAB PO PRN (01:15)
[2018-04-02] MEDS ORDERED: HYDROcodone/Acetaminophen 5/325 mg Tablet PO PRN (01:25)
[2018-04-02] MEDS ORDERED: Dextrose 50% Abboject 50 ML SYRINGE SLOW IVP PRN (01:30)
[2018-04-02] MEDS ORDERED: Dextrose 5% in Water 1,000 ML IV PRN (01:30)
[2018-04-02] MEDS ORDERED: Insulin Regular 300 UNITS/3 ML VIAL SC PRN (01:30)
[2018-04-02 02:53] VITALS: BMI 42.7
[2018-04-02] MEDS: Insulin Regular 300 UNITS/3 ML VIAL SC PRN ×2 (05:39→12:00)
[2018-04-02 06:07] LABS: #Lymphocytes 1.6 thou/uL (1.20-3.40); #Monocytes 0.2 thou/uL (0.11-0.59); #Neutrophils 6.2 thou/uL (1.40-6.50); %Basophils 0.3 % (0.0-1.0); %Eosinophils 0.2 % (0.0-10.0); %Lymphocytes 19.6 % (21.0-51.0); %Monocytes 2.5 % (0.0-10.0); %Neutrophils 77.4 % (42.0-75.0); Hemoglobin 14.4 g/dL (12.0-16.0); Mean Corpuscular HGB CONC 33.9 g/dL (32.0-36.0); Mean Corpuscular Hemoglobin 29.9 pg (27.0-31.0); Mean Corpuscular Volume 88.2 fL (78.0-98.0); Platelet Count 205 thou/uL (130-400); Red Blood Cell (RBC) Count 4.81 mill/uL (4.20-5.40); White Blood Cell (WBC) Count 8.1 thou/uL (4.8-10.8)
[2018-04-02 06:25] LABS: Albumin 4.3 g/dL (3.5-5.0); Anion Gap 17 mmol/L (10-20); BUN (Urea Nitrogen) 16 mg/dL (7.0-18.7); BUN/Creatinine Ratio 14.16; Calc. Creatinine Clearance 115 mL/min (70-130); Calcium 10.5 mg/dL (7.8-10.44); Carbon Dioxide 23 mmol/L (22-29); Chloride 102 mmol/L (98-107); Estimated GFR-MDRD 51; Glucose 397 mg/dL (70-105); Phosphorus 3.4 mg/dL (2.3-4.7); Potassium 4.5 mmol/L (3.5-5.1); Sodium 137 mmol/L (136-145)
[2018-04-02] MEDS ORDERED: Eucerin (Mineral Oil/Petrolatum,White) 30 gm Jar TOP PRN (08:02)
[2018-04-02] MEDS ORDERED: Ondansetron ODT 4 MG TAB PO PRN (08:02)
[2018-04-02] MEDS ORDERED: Sodium Chloride 0.65% Nasal 44 ML BOT EA NARE PRN (08:02)
[2018-04-02] MEDS ORDERED: Artificial Tears 18 DROP/0.9 ML EA EYE PRN (08:02)
[2018-04-02] MEDS ORDERED: Cepastat Lozenges 1 LOZ PO PRN (08:02)
[2018-04-02] MEDS ORDERED: Ondansetron PF 4 MG/2 ML Vial IVP PRN (08:02)
[2018-04-02] MEDS ORDERED: Loperamide HCl 2 MG CAP PO PRN (08:02)
[2018-04-02] MEDS ORDERED: Zolpidem Tartrate 5 MG TAB PO PRN (08:02)
[2018-04-02] MEDS ORDERED: Loratadine 10 MG TAB PO PRN (08:02)
[2018-04-02] MEDS ORDERED: hydrALAZINE 20 MG/ML VIAL SLOW IVP PRN (08:02)
[2018-04-02] MEDS ORDERED: Diabetic Tussin 200 MG/10 ML UDCUP PO PRN (08:02)
[2018-04-02] MEDS: HumaLOG 300 UNITS/3 ML VIAL SC SCH ×2 (08:11→11:58)
[2018-04-02] MEDS ORDERED: Atorvastatin Calcium 20 MG TAB PO SCH (09:00)
[2018-04-02] MEDS ORDERED: clonazePAM 1 MG TAB PO SCH (09:00)
[2018-04-02] MEDS ORDERED: cloNIDine 0.3 MG TAB PO SCH (09:00)
[2018-04-02] MEDS ORDERED: tiZANidine HCl 4 MG TAB PO SCH (09:00)
[2018-04-02] MEDS ORDERED: Gabapentin 300 MG CAP PO SCH (09:00)
[2018-04-02] MEDS ORDERED: Insulin Glargine 50 UNITS in Pre-Filled Syringe 1 EACH SC SCH ×2 (09:00→21:00)
[2018-04-02] MEDS ORDERED: Carvedilol 6.25 MG TAB PO SCH (09:00)
[2018-04-02] MEDS ORDERED: Allopurinol 100 MG TAB PO SCH (09:00)
--- NOTE | 2018-04-02 10:22 | HP ---
CHIEF COMPLAINT: Generalized weakness. HISTORY OF PRESENT ILLNESS: This is a 48-year-old female with past medical history of type 2 diabetes mellitus, diverticulitis, hyperlipidemia, hypertension, CVA in 2015, renal insufficiency, presenting with dizziness and hypotension. The patient was brought in by EMS, and per EMS, the patient was found unresponsive. The patient had taken all her medications and the patient's skin was cool and clammy and the patient stated that she was nauseated. Per the records, the patient has taken all her medications. She had not been compliant with her medications, and after she filled her medications, the patient started taking all her medication at once. The patient was given lidocaine and Zofran en route to the hospital and the patient's initial blood pressure that was taken by EMS showed the patient's blood pressure was 68 systolic. Per records, the patient was endorsing fever, chills, and abdominal pain that has been ongoing for the past 2 weeks. REVIEW OF SYSTEMS: Positive for chills, fever, and hypotension. Otherwise, as documented in the HPI, all other system has been reviewed and are negative. PAST MEDICAL HISTORY: 1. Type 2 diabetes mellitus. 2. Diverticulitis. 3. Hyperlipidemia. 4. Hypertension. 5. CVA. 6. Chronic back pain. 7. Renal insufficiency. FAMILY HISTORY: Reviewed and noncontributory to this visit. PAST SURGICAL HISTORY: 1. x3. 2. Orthopedic surgery of left elbow. 3. Spinal surgery, lumbar. 4. Carpal tunnel surgery, left wrist. 5. Corrective eye surgery x2. 6. Cholecystectomy. 7. Partial hysterectomy. PSYCHIATRIC HISTORY: 1. Anxiety. 2. Bipolar. 3. Depression. 4. Schizophrenia. SOCIAL HISTORY: The patient denies illicit drug use and denies alcohol use. The patient lives at home. ALLERGIES: THE PATIENT IS ALLERGIC TO TORADOL. CURRENT MEDICATIONS: 1. Clonidine 0.3 mg. 2. Carvedilol 6.25 mg. 3. Clonazepam 2 mg. 4. Allopurinol 100 mg. 5. Duloxetine 120 mg. 6. Gabapentin 600 mg. 7. Levothyroxine 25 mcg. 8. Pantoprazole 40 mg. 9. Tizanidine 8 mg. 10. Levemir 100 units. 11. Tramadol 300 mg. 12. Bydureon 2 mg. 13. [place] 5 mg/325 mg. 14. Bentyl 20 mg. 15. Zofran 4 mg. 16. Colace 100 mg. 17. Buspirone 10 mg. PHYSICAL EXAMINATION: VITAL SIGNS: Blood pressure 50/33, pulse of 75, respiratory rate of 19, oxygen saturation of 91 on 4L of oxygenation. GENERAL: The patient is hypotensive. The patient is lying in bed, somewhat somnolent at this time. HEENT: Normocephalic and atraumatic. Pupils round and reactive to light. Left pupil is pinpoint and right pupil pinpoint. Extraocular muscles are intact. ENT; mucous membranes are mildly dry. NECK: Trachea is midline. Full range of motion. Supple. No JVD. LUNGS: Clear to auscultation bilaterally. No wheezing, no rales, and no rhonchi. CARDIOVASCULAR: Positive S1 and S2. Regular rate and rhythm. No murmurs, no gallops, and no rubs appreciated. ABDOMEN: The patient has mild tenderness with palpation of the abdomen. There is no peritoneal sign. No rigidity. No guarding. EXTREMITIES: The patient has 5/5 upper extremity strength and 5/5 lower extremity strength. Good pulses bilaterally. NEUROLOGIC: Cranial nerves 2 through 12 grossly intact. No neurologic deficit is noted. The patient is somnolent and slow to respond. SKIN: Warm, dry, intact. No lesions seen. PSYCHIATRIC: Normal affect, somnolent, mildly arousable. DIAGNOSTIC STUDIES: EKG shows sinus rhythm with a rate of 82. LABORATORY DATA: WBC is 9.6, hemoglobin is 14.2, hematocrit is 41.4, and platelet count is 293. ABGs; pH is 7.43, pCO2 of 35, and pO2 of 63.7. Sodium is 133, potassium is 4.4, chloride is 100, carbon dioxide of 20, anion gap is 17, creatinine is 1.41, and glucose is 387. AST 39 and ALT 47. TSH is 11.9499. Urinalysis is negative. Urine tox is negative. ASSESSMENT AND PLAN: This is a 48-year-old female, being admitted for 1. Acute respiratory failure, hypoxemic, likely due to polysubstance abuse. The patient took all her medications at one time and the patient became somnolent, leading to the patient becoming unresponsive for some time. The patient was given treatment in the ED. In the ED, the patient received Decadron, Synthroid, Zosyn, naloxone, and normal saline. At this point, the patient is slightly awake, alert, oriented x3, but the patient is still somnolent. We are going to continue supportive care at this time and we will monitor the patient's progress. 2. Acute kidney injury, likely due to dehydration. At this point, the patient has been started on normal saline. We are going to continue normal saline. We will follow up on renal panel and we will continue to monitor the patient closely. 3. Diabetes mellitus, type 2, uncontrolled. The patient blood sugar 387. We will start the patient on insulin sliding scale. We will monitor the patient closely. 4. Hypothyroidism. The patient's TSH is elevated at 11.9499. This is most likely due to the patient being noncompliant with her medications. At this point, we are going to give the patient 75 mcg of Synthroid, then we will put the patient back on her home dose of 25 mcg and we will monitor the patient closely. 5. Hypertension. Currently, the patient is hypotensive. We are giving the patient fluid resuscitation. The patient's blood pressure is currently normotensive. We will monitor the patient's blood pressure closely. 6. Deep vein thrombosis and gastrointestinal prophylaxis. Job ID: [id number]
--- NOTE | 2018-04-02 11:01 | PDOC.PN ---
- Subjective Encounter Start Date: 04/02/18 Encounter Start Time: 07:30 -: old records requested/rev Patient seen and examined. No new complaints. No overnight events - Objective Resuscitation Status - Order Detail: 04/02/18 01:15 Resuscitation Status Routine Resuscitation Status: FULL: Full Resuscitation MAR Reviewed: Yes Vital Signs & Weight: Vital Signs (12 hours) Temp Pulse Resp BP BP Pulse Ox 04/02/18 09:00 103 H 101/65 04/02/18 07:42 97.6 F 117 H 20 158/85 H 99 04/02/18 02:56 95 04/02/18 02:30 97.3 F L 84 14 161/101 H 95 Weight Weight 264 lb 9.6 oz Result Diagrams: 04/02/18 05:35 04/02/18 05:35 Additional Labs: Accuchecks 04/02/18 04/01/18 05:36 18:08 POC Glucose 343 H 361 H Phys Exam - Physical Examination Constitutional: NAD HEENT: PERRLA, moist MMs, sclera anicteric Neck: no JVD, supple Respiratory: no wheezing, no rales, no rhonchi Cardiovascular: RRR, no significant murmur, no rub Gastrointestinal: soft, non-tender, no distention, positive bowel sounds morbid obesity+ Musculoskeletal: no edema, pulses present Neurological: non-focal, normal sensation, moves all 4 limbs Lymphatic: no nodes Psychiatric: normal affect, A&O x 3 Skin: no rash, normal turgor Dx/Plan (1) Acute kidney failure Status: Acute (2) Metabolic encephalopathy Code(s): G93.41 - METABOLIC ENCEPHALOPATHY Status: Acute (3) Bipolar 1 disorder Code(s): F31.9 - BIPOLAR DISORDER, UNSPECIFIED Status: Chronic Comment: (4) Chronic pain syndrome Status: Chronic Comment: (5) Chronic radicular low back pain Code(s): M54.16 - RADICULOPATHY, LUMBAR REGION; G89.29 - OTHER CHRONIC PAIN Status: Chronic (6) DM type 2 (diabetes mellitus, type 2) Status: Chronic Qualifiers: Comment: Continue current treatment. (7) Fatty liver Code(s): K76.0 - FATTY (CHANGE OF) LIVER, NOT ELSEWHERE CLASSIFIED Status: Chronic Comment: (8) Hypertension Code(s): I10 - ESSENTIAL (PRIMARY) HYPERTENSION Status: Chronic Qualifiers: Comment: (9) Hypothyroidism Code(s): E03.9 - HYPOTHYROIDISM, UNSPECIFIED Status: Chronic Qualifiers: Comment: (10) Morbid obesity with BMI of 40.0-44.9, adult Code(s): E66.01 - MORBID (SEVERE) OBESITY DUE TO EXCESS CALORIES; Z68.41 - BODY MASS INDEX (BMI) 40.0-44.9, ADULT Status: Chronic - Plan cont current plan of care, plan discussed w/ family * medication reviewed as below * symptomatic treatment * home medication reconciled * ambulate as tolerated * continue IVF * discussed with family. Review of Systems - Review of Systems ENT: negative: Ear Pain, Ear Discharge, Nose Pain, Nose Discharge, Nose Congestion, Mouth Pain, Mouth Swelling, Throat Pain, Throat Swelling, Other Respiratory: negative: Cough, Dry, Shortness of Breath, Hemoptysis, SOB with Excertion, Pleuritic Pain, Sputum, Wheezing Cardiovascular: negative: chest pain, palpitations, orthopnea, paroxysmal nocturnal dyspnea, edema, light headedness, other Gastrointestinal: negative: Nausea, Vomiting, Abdominal Pain, Diarrhea, Constipation, Melena, Hematochezia, Other Genitourinary: negative: Dysuria, Frequency, Incontinence, Hematuria, Retention , Other Musculoskeletal: negative: Neck Pain, Shoulder Pain, Arm Pain, Back Pain, Hand Pain, Leg Pain, Foot Pain, Other - Medications/Allergies Allergies/Adverse Reactions: Allergies Allergy/AdvReac Type Severity Reaction Status Date / Time butorphanol tartrate Allergy Severe Verified 11/03/16 16:47 [From Stadol] ketorolac tromethamine Allergy Intermediate Verified 11/03/16 16:47 [From Toradol] Medications: Current Medications Acetaminophen (Tylenol) 650 mg PO Q4H PRN PRN Reason: Headache/Fever/Mild Pain (1-3) Hydrocodone Bitart/Acetaminophen ([place] 5/325) 1 tab PO Q6H PRN PRN Reason: Moderate Pain (4-6) Allopurinol (Zyloprim) 100 mg PO BID [facility] Last Admin: 04/02/18 08:13 Dose: 100 mg Artificial Tears (Tears Naturale) 2 drop EA EYE PRN PRN PRN Reason: Dry Eyes Atorvastatin Calcium (Lipitor) 20 mg PO DAILY [facility] Last Admin: 04/02/18 08:12 Dose: 20 mg Bisacodyl (Dulcolax) 10 mg PO DAILYPRN PRN PRN Reason: Constipation Calcium Carbonate (Tums) 1,000 mg PO Q4H PRN PRN Reason: Heartburn or Indigestion Carvedilol (Coreg) 12.5 mg PO BID [facility] Last Admin: 04/02/18 08:12 Dose: 12.5 mg Clonazepam (Klonopin) 2 mg PO TID [facility] Last Admin: 04/02/18 08:12 Dose: 2 mg Clonidine (Catapres) 0.3 mg PO BID [facility] Last Admin: 04/02/18 08:12 Dose: 0.3 mg Dextrose/Water (Dextrose 50%) 25 gm SLOW IVP PRN PRN PRN Reason: Hypoglycemia Duloxetine HCl (Cymbalta) [address] [facility] Gabapentin (Neurontin) 1,200 mg PO BID [facility] Last Admin: 04/02/18 08:11 Dose: 1,200 mg Glucagon (Glucagon) 1 mg IM PRN PRN PRN Reason: Hypoglycemia Guaifenesin (Robitussin Sf) 200 mg PO Q4H PRN PRN Reason: Cough Hydralazine HCl (Apresoline) 10 mg SLOW IVP Q4H PRN PRN Reason: SBP > 180 and HR < 70 Dextrose/Water (D5w) 1,000 mls @ 0 mls/hr IV .Q0M PRN PRN Reason: Hypoglycemia Sodium Chloride (Normal Saline 0.9%) 1,000 mls @ 75 mls/hr IV .[id number] [facility] Insulin Glargine 50 units/ (Miscellaneous Medication) 0.5 mls @ 0 mls/hr SC HS [facility] Insulin Glargine 50 units/ (Miscellaneous Medication) 0.5 mls @ 0 mls/hr SC QAM [facility] Last Admin: 04/02/18 09:33 Dose: 0.5 mls Insulin Human Lispro (Humalog) 10 units SC [address] Last Admin: 04/02/18 08:11 Dose: 10 unit Insulin Human Regular (Humulin R) 0 units SC .MILD SLIDING SCALE PRN PRN Reason: Mild Correctional Scale Last Admin: 04/02/18 05:39 Dose: 5 units Insulin Human Regular (Humulin R) 0 units SC .BEDTIME SLIDING SC PRN PRN Reason: Bedtime Correctional Scale Levothyroxine Sodium (Synthroid) 50 mcg PO 0600 [facility] Loperamide HCl (Imodium) 2 mg PO PRN PRN PRN Reason: Diarrhea/Loose Stools Loratadine (Claritin) 10 mg PO DAILYPRN PRN PRN Reason: Sinus Symptoms Mineral Oil/White Petrolatum (Eucerin Cream) 0 gm TOP BIDPRN PRN PRN Reason: Dry Skin Olanzapine (Zyprexa) 40 mg PO HS [facility] Ondansetron HCl (Zofran Odt) 4 mg PO Q6H PRN PRN Reason: Nausea/Vomiting Ondansetron HCl (Zofran) 4 mg IVP Q6H PRN PRN Reason: Nausea/Vomiting Pantoprazole Sodium (Protonix) 40 mg PO DAILY [facility] Last Admin: 04/02/18 08:12 Dose: 40 mg Risperidone (Risperidone) 1 mg PO HS [facility] Senna/Docusate Sodium (Senokot S) 2 tab PO BIDPRN PRN PRN Reason: Constipation Sodium Chloride (Flush - Normal Saline) 10 ml IVF Q12HR PRN PRN Reason: Saline Flush Sodium Chloride (Flush - Normal Saline) 10 ml IVF PRN PRN PRN Reason: Saline Flush Last Admin: 04/02/18 02:47 Dose: 10 ml Sodium Chloride ([place] Nasal [place] 0.65%) 0 ml EA NARE QIDPRN PRN PRN Reason: Nasal Congestion Throat Lozenges (Cepastat Lozenges) 1 ursula PO Q2H PRN PRN Reason: Sore Throat Tizanidine HCl (Zanaflex) 8 mg PO TID [facility] Last Admin: 04/02/18 08:13 Dose: 8 mg Zolpidem Tartrate (Ambien) 5 mg PO HSPRN PRN PRN Reason: Insomnia
[2018-04-02 12:04] VITALS: TEMP 97.8
[2018-04-02 12:16] VITALS: BP 125/79
[2018-04-02] MEDS ORDERED: HumaLOG 300 UNITS/3 ML VIAL SC PRN ×2 (13:53)
--- NOTE | 2018-04-02 16:22 | DIS ---
DATE OF ADMISSION: 04/02/2018 DATE OF DISCHARGE: 04/02/2018 PRIMARY CARE PHYSICIAN: DISCHARGE DISPOSITION: Against medical advice. PRIMARY DISCHARGE DIAGNOSES: Acute kidney failure and acute metabolic encephalopathy. SECONDARY DISCHARGE DIAGNOSES: Morbid obesity with body mass index of 42, hypothyroidism, hypertension, fatty liver, diabetes type 2, chronic radicular low back pain, chronic pain disorder, bipolar disorder. PRIMARY PROCEDURE/OPERATION: None. RADIOLOGICAL INVESTIGATION: Abdomen and pelvis CT scan, CT brain, and chest x-ray. SIGNIFICANT LABORATORY DATA: Hemoglobin 14.4 and creatinine 1.13. Urinalysis, unremarkable. Urine drug screen, negative. DISCHARGE MEDICATIONS: The patient will continue all her previous medications. We have not changed any medication. She left against medical advice. She was on following medications, 1. [place] 5, one tablet q.6 hourly p.r.n. 2. Allopurinol 100 mg b.i.d. 3. Lipitor 20 mg daily. 4. Coreg 12.5 mg b.i.d. 5. Clonazepam 2 mg t.i.d. 6. Clonidine 0.3 mg b.i.d. 7. Cymbalta 120 mg p.o. at bedtime. 8. Gabapentin 1200 mg b.i.d. 9. Humalog 20 units t.i.d. 10. Levemir 100 units b.i.d. 11. Levothyroxine 25 mcg daily. 12. Zyprexa 40 p.o. nightly. 13. Protonix 40 mg daily. 14. Risperidone 1 mg p.o. nightly. 15. Zanaflex 8 mg t.i.d. 16. Tramadol ER 300 mg daily. CONTRAINDICATION: None. CODE STATUS: Full code. INPATIENT KITCHEN WORK SUPERVISOR: None. ALLERGIES: BUTORPHANOL, TORADOL. DISCHARGE PLAN: Posthospital, the patient will follow up with primary care physician. HOSPITAL COURSE: A 48-year-old female who was admitted by Dr. Zhang. The patient was admitted for hyperglycemia and acute kidney failure. We tried to keep this patient in the hospital for treatment, but the patient left against medical advice. Please see my progress note from today for further detail. Job ID: [id number]
[2018-04-02] MEDS ORDERED: HumaLOG 300 UNITS/3 ML VIAL SC SCH (17:00)
[2018-04-02] MEDS ORDERED: DULoxetine 60 MG CAP PO SCH (21:00)
[2018-04-02] MEDS ORDERED: INSULIN DETEMIR 100 UNIT SC SCH (21:00)
[2018-04-02] MEDS ORDERED: Insulin Glargine 100 UNITS in Pre-Filled Syringe 1 EACH SC SCH (21:00)
[2018-04-02] MEDS ORDERED: risperiDONE 1 MG TAB PO SCH (21:00)
[2018-04-02] MEDS ORDERED: OLANZapine 5 MG TAB PO SCH (21:00)
[2018-04-03] MEDS ORDERED: Levothyroxine Sodium 50 MCG TAB PO SCH (06:00)
== END 2018-04-02 14:53 | disposition home or self-care (01) | DRG 189 ==
LOC: ERS 18:04 → SURG A 04-02 01:20
PROVIDERS: ADMIT Internal Medicine; ATTEND Internal Medicine
DX: J96.01 Acute respiratory failure with hypoxia (principal); G93.41 Metabolic encephalopathy; N17.9 Acute kidney failure, unspecified; Z68.41 Body mass index [BMI] 40.0-44.9, adult; E86.0 Dehydration; E11.65 Type 2 diabetes mellitus with hyperglycemia; E03.9 Hypothyroidism, unspecified; I10 Essential (primary) hypertension; F31.9 Bipolar disorder, unspecified; M54.16 Radiculopathy, lumbar region; G89.29 Other chronic pain; E11.9 Type 2 diabetes mellitus without complications; K76.0 Fatty (change of) liver, not elsewhere classified; E66.01 Morbid (severe) obesity due to excess calories
CPT/HCPCS: 36415; 36416; 51701; 70450; 71045; 74177; 80053; 80069; 80306; 80307; 81003; 81015; 82533; 82805; 83690; 84439; 84443; 84484; 85025; 87040; 87086; 93005; 96361; 96365; 96366; 96374; 96375; J1100; J1815; J2310; J2543; J7050

== ENCOUNTER 2018-07-06 14:22 | Emergency (ER) | payer OTHER ==
--- NOTE | 2018-07-06 15:06 | RAD ---
SINGLE VIEW CHEST: Date: 07/06/18 COMPARISON: 04/01/18. HISTORY: Chest pain and shortness of breath. FINDINGS: Single view of the chest shows a normal sized cardiomediastinal silhouette. There is no evidence of c onsolidation, mass, or pleural effusion. The bones are unremarkable. IMPRESSION: No evidence of acute cardiopulmonary disease. POS: [facility]
[2018-07-06 15:52] LABS: #Eosinphils 0.2 thou/uL (0.0-0.7); #Lymphocytes 3.9 thou/uL (1.20-3.40); #Monocytes 0.9 thou/uL (0.11-0.59); %Basophils 0.1 % (0.0-1.0); %Eosinophils 2.3 % (0.0-10.0); %Lymphocytes 43.3 % (21.0-51.0); %Monocytes 9.9 % (0.0-10.0); %Neutrophils 44.4 % (42.0-75.0); Hemoglobin 12.9 g/dL (12.0-16.0); Mean Corpuscular HGB CONC 32.2 g/dL (32.0-36.0); Mean Corpuscular Hemoglobin 29.6 pg (27.0-31.0); Mean Corpuscular Volume 92.1 fL (78.0-98.0); Platelet Count 235 thou/uL (130-400); RBC Distribution Width 12.6 % (11.5-14.5); Red Blood Cell (RBC) Count 4.34 mill/uL (4.20-5.40); White Blood Cell (WBC) Count 9.1 thou/uL (4.8-10.8)
[2018-07-06 16:10] LABS: ALT (SGPT) 41 U/L (8-55); AST (SGOT) 39 U/L (5-34); Albumin 3.9 g/dL (3.5-5.0); Alkaline Phosphatase 93 U/L (40-150); Anion Gap 13 mmol/L (10-20); BUN (Urea Nitrogen) 15 mg/dL (7.0-18.7); Bilirubin, Total 0.3 mg/dL (0.2-1.2); Calc. Creatinine Clearance 0 mL/min (70-130); Calcium 9.1 mg/dL (7.8-10.44); Carbon Dioxide 24 mmol/L (22-29); Chloride 106 mmol/L (98-107); Estimated GFR-MDRD 61; Globulin 2.4 g/dL (2.4-3.5); Glucose 342 mg/dL (70-105); Potassium 4.6 mmol/L (3.5-5.1); Protein, Total 6.3 g/dL (6.0-8.3); Sodium 138 mmol/L (136-145)
== END 2018-07-06 18:10 | disposition left against medical advice (07) ==
LOC: ERS 14:22
DX: R53.1 Weakness (principal); R06.02 Shortness of breath; E11.9 Type 2 diabetes mellitus without complications; E78.5 Hyperlipidemia, unspecified; Z86.73 Personal history of transient ischemic attack (TIA), and cerebral infarction without residual deficits; F20.9 Schizophrenia, unspecified; Z79.4 Long term (current) use of insulin; Z79.899 Other long term (current) drug therapy; Z79.891 Long term (current) use of opiate analgesic
CPT/HCPCS: 36415; 36416; 71045; 80053; 83605; 84484; 85025; 93005

== ENCOUNTER 2018-08-12 08:40 | Emergency (ER) | payer OTHER ==
[2018-08-12 09:52] LABS: Bilirubin Negative (Negative); Blood, Urine Negative (Negative); Clarity CLEAR (Clear); Glucose, Urine (Dipstick) >=1000 mg/dL (Negative); Leukocyte Negative (Negative); Nitrite Negative (Negative); Protein, Urine (Dipstick) Negative (Neg-Trace); Specific Gravity, Urine 1.022 (1.002-1.036); Urobilinogen 0.2 mg/dL (0.2-1.0); pH, Urine 5.5 (5.0-9.0)
== END 2018-08-12 10:12 | disposition home or self-care (01) ==
LOC: ERS 08:40
DX: E11.40 Type 2 diabetes mellitus with diabetic neuropathy, unspecified (principal); R30.0 Dysuria; E78.5 Hyperlipidemia, unspecified; I10 Essential (primary) hypertension; F41.9 Anxiety disorder, unspecified; F31.9 Bipolar disorder, unspecified; F20.9 Schizophrenia, unspecified; Z79.899 Other long term (current) drug therapy; Z86.73 Personal history of transient ischemic attack (TIA), and cerebral infarction without residual deficits
CPT/HCPCS: 81003; 99283

== ENCOUNTER 2018-10-10 09:45 | Emergency (ER) | payer OTHER ==
[2018-10-10] MEDS ORDERED: Ibuprofen 800 MG TAB ONE (10:05)
== END 2018-10-10 10:11 | disposition home or self-care (01) ==
LOC: SCSER 09:45
DX: J20.9 Acute bronchitis, unspecified (principal); H60.92 Unspecified otitis externa, left ear; F41.9 Anxiety disorder, unspecified; F31.9 Bipolar disorder, unspecified; F20.9 Schizophrenia, unspecified
CPT/HCPCS: 99283

== ENCOUNTER 2018-10-31 06:04 | Emergency (ER) | payer OTHER ==
[2018-10-31 06:33] LABS: #Basophils 0.1 thou/uL (0.0-0.2); #Eosinphils 0.2 thou/uL (0.0-0.7); #Lymphocytes 3.2 thou/uL (1.20-3.40); #Monocytes 1.2 thou/uL (0.11-0.59); #Neutrophils 4.2 thou/uL (1.40-6.50); %Basophils 0.6 % (0.0-1.0); %Lymphocytes 36.8 % (21.0-51.0); %Monocytes 13.2 % (0.0-10.0); %Neutrophils 47.5 % (42.0-75.0); Mean Corpuscular HGB CONC 35.3 g/dL (32.0-36.0); Mean Corpuscular Hemoglobin 31.4 pg (27.0-31.0); Mean Corpuscular Volume 88.9 fL (78.0-98.0); Mean Platelet Volume 8.6 fL (7.4-10.4); Platelet Count 208 thou/uL (130-400); RBC Distribution Width 13.3 % (11.5-14.5); Red Blood Cell (RBC) Count 4.76 mill/uL (4.20-5.40); White Blood Cell (WBC) Count 8.8 thou/uL (4.8-10.8)
[2018-10-31 06:54] LABS: ALT (SGPT) 47 U/L (8-55); AST (SGOT) 42 U/L (5-34); Albumin 4.5 g/dL (3.5-5.0); Alkaline Phosphatase 123 U/L (40-150); Anion Gap 21 mmol/L (10-20); BUN (Urea Nitrogen) 22 mg/dL (7.0-18.7); Bilirubin, Total 0.4 mg/dL (0.2-1.2); Calc. Creatinine Clearance 0 mL/min (70-130); Calcium 10.4 mg/dL (7.8-10.44); Carbon Dioxide 16 mmol/L (22-29); Chloride 104 mmol/L (98-107); Estimated GFR-MDRD 54; Globulin 3.4 g/dL (2.4-3.5); Glucose 222 mg/dL (70-105); Lipase 33 U/L (8-78); Potassium 3.9 mmol/L (3.5-5.1); Protein, Total 7.9 g/dL (6.0-8.3); Sodium 137 mmol/L (136-145)
[2018-10-31] MEDS ORDERED: Ondansetron PF 4 MG/2 ML Vial ONE (07:32)
[2018-10-31 07:55] LABS: Bilirubin Negative (Negative); Blood, Urine Negative (Negative); Clarity Clear (Clear); Glucose, Urine (Dipstick) Greater than 1000 mg/dL (Negative); Leukocyte Negative Leu/uL (Negative); Nitrite Negative (Negative); Protein, Urine (Dipstick) Negative (Neg-Trace); Urobilinogen Normal mg/dL (Less than 2)
--- NOTE | 2018-10-31 08:25 | CT ---
CT ABDOMEN WITH CONTRAST CT PELVIS WITH CONTRAST: DATE: 10/31/2018 HISTORY: 48-year-old female with left-sided abdominal pain with nausea. TECHNIQUE: IV injection of iodinated contrast media: Administered Oral contrast media:Not administered. FINDINGS: Liver: No focal solid mass. Cholecystectomy clips. Spleen: No splenomegaly.. Pancreas: No mass or surrounding fat stranding.. Adrenals: No mass.. Kidneys: No hydronephrosis or enhancement abnormalities.. Ureters: No dilation. Bladder: No pathology identified. Abdominal aorta: No aneurysm. Small bowel: No dilation. Colon: Diverticula throughout the descending and sigmoid colon. No adjacent fat stranding. Appendix: No dilation or adjacent fat stranding.. Free air: None. Free fluid: None. Region of fat stranding adjacent to skin thickening at left anterior subcutaneous fat, similar to . IMPRESSION: 1. No major pathology identified in the intra-abdominal or intrapelvic cavity.. 2. Scar tissue versus edema in the skin and subcutaneous fat superficial to the left anterior abdomin al wall. 3. Status post hysterectomy and cholecystectomy. 4. Colonic diverticulosis without evidence of diverticulitis.
[2018-10-31] MEDS ORDERED: ISOVUE-370 76%-LOCM 1 ML ONE (10:13)
== END 2018-10-31 08:40 | disposition home or self-care (01) ==
LOC: ERS 06:04
DX: R10.12 Left upper quadrant pain (principal); E11.9 Type 2 diabetes mellitus without complications; E78.5 Hyperlipidemia, unspecified; Z86.73 Personal history of transient ischemic attack (TIA), and cerebral infarction without residual deficits; F31.9 Bipolar disorder, unspecified; F20.9 Schizophrenia, unspecified; Z79.899 Other long term (current) drug therapy; Z79.4 Long term (current) use of insulin
CPT/HCPCS: 36415; 74177; 80053; 81003; 83690; 85025; 96361; 96372; 96374; J0500; J2405; Q9966

== ENCOUNTER 2019-03-20 13:53 | Emergency (ER) | payer OTHER ==
[2019-03-20 16:21] LABS: Bilirubin Negative (Negative); Blood, Urine Negative (Negative); Clarity Clear (Clear); Glucose, Urine (Dipstick) Greater than 1000 mg/dL (Negative); Leukocyte Negative Leu/uL (Negative); Nitrite Negative (Negative); Protein, Urine (Dipstick) 10 mg/dL (Neg-Trace); Urobilinogen Normal mg/dL (Less than 2)
--- NOTE | 2019-03-20 17:00 | RAD ---
XR Chest 1 View Portable HISTORY: Nausea, weakness COMPARISON: 07/21/2018 FINDINGS: The heart size is normal. The lungs are well expanded without focal areas of consolidation, pneumothorax or pleural effusions. IMPRESSION: No radiographic evidence of acute cardiopulmonary process.
[2019-03-20 17:33] LABS: #Basophils 0.1 thou/uL (0.0-0.2); #Eosinphils 0.2 thou/uL (0.0-0.7); #Lymphocytes 3.5 thou/uL (1.20-3.40); #Neutrophils 5.2 thou/uL (1.40-6.50); %Basophils 0.7 % (0.0-1.0); %Eosinophils 1.8 % (0.0-10.0); %Lymphocytes 35.1 % (21.0-51.0); %Monocytes 9.7 % (0.0-10.0); %Neutrophils 52.7 % (42.0-75.0); Hemoglobin 16.1 g/dL (12.0-16.0); Mean Corpuscular HGB CONC 35.7 g/dL (32.0-36.0); Mean Corpuscular Hemoglobin 31.1 pg (27.0-31.0); Mean Corpuscular Volume 87.1 fL (78.0-98.0); Mean Platelet Volume 8.4 fL (7.4-10.4); Platelet Count 249 thou/uL (130-400); RBC Distribution Width 12.9 % (11.5-14.5); Red Blood Cell (RBC) Count 5.18 mill/uL (4.20-5.40); White Blood Cell (WBC) Count 9.8 thou/uL (4.8-10.8)
[2019-03-20] MEDS ORDERED: Promethazine HCl 25 MG/ML VIAL ONE (17:43)
[2019-03-20 17:59] LABS: ALT (SGPT) 74 U/L (8-55); AST (SGOT) 41 U/L (5-34); Albumin 4.9 g/dL (3.5-5.0); Alkaline Phosphatase 161 U/L (40-110); Anion Gap 17 mmol/L (10-20); BUN (Urea Nitrogen) 11 mg/dL (7.0-18.7); Bilirubin, Total 0.8 mg/dL (0.2-1.2); CK (CPK) 817 U/L (29-168); Calc. Creatinine Clearance 0 mL/min (70-130); Calcium 10.9 mg/dL (7.8-10.44); Carbon Dioxide 27 mmol/L (22-29); Chloride 99 mmol/L (98-107); Estimated GFR-MDRD 63; Globulin 3.6 g/dL (2.4-3.5); Glucose 169 mg/dL (70-105); Lipase 19 U/L (8-78); Potassium 3.5 mmol/L (3.5-5.1); Protein, Total 8.5 g/dL (6.0-8.3); Sodium 139 mmol/L (136-145)
[2019-03-20] MEDS ORDERED: Metoclopramide HCl 10 MG/2 ML VIAL ONE (18:46)
[2019-03-20] MEDS ORDERED: Ondansetron PF 4 MG/2 ML Vial ONE (18:46)
--- NOTE | 2019-03-20 19:32 | CT ---
CTA CHEST WITH CONTRAST: 03/20/19 Axial tomograms obtained with multiplanar reconstructions and 3D postprocessing following angio jim col. INDICATIONS: Dyspnea. Nausea. There is no evidence of pulmonary embolus to the segmental level. Thoracic aorta unremarkable. Medias tinum unremarkable. Lung nevarez are clear. No infiltrate. Images through the upper abdomen unremarkab le. IMPRESSION: 1. No evidence of pulmonary embolus. 2. No acute lung process. POS: OFF
--- NOTE | 2019-03-20 19:34 | CT ---
CT ABDOMEN AND PELVIS WITH CONTRAST: 03/20/19 INDICATIONS: Abdominal pain with nausea. Comparison made to CT abdomen and pelvis 10/31/18. Liver, spleen, and pancreas unremarkable. Post cholecystectomy change. Stomach and duodenum unremarka ble. Adrenal glands and kidneys unremarkable. Small bowel loops appear normal. Appendix appears normal. Colon unremarkable with diverticulosis of t he left colon again noted. No free fluid. Evidence of hysterectomy. Osseous structures unremarkable. IMPRESSION: No evidence of acute process. POS: [facility]
[2019-03-20] MEDS ORDERED: Morphine 2 MG/ML SYRINGE ONE (19:40)
[2019-03-20] MEDS ORDERED: Labetalol HCl 100 MG/20 ML VIAL ONE (19:41)
[2019-03-20 20:48] LABS: Lactic Acid 1.7 mmol/L (0.5-2.2)
== END 2019-03-20 21:22 | disposition home or self-care (01) ==
LOC: ERS 13:53
DX: E86.0 Dehydration (principal); I10 Essential (primary) hypertension; M79.10 Myalgia, unspecified site; R11.0 Nausea; E11.9 Type 2 diabetes mellitus without complications; E78.5 Hyperlipidemia, unspecified; E78.00 Pure hypercholesterolemia, unspecified; F41.9 Anxiety disorder, unspecified; F31.9 Bipolar disorder, unspecified; F20.9 Schizophrenia, unspecified; Z86.73 Personal history of transient ischemic attack (TIA), and cerebral infarction without residual deficits; Z79.4 Long term (current) use of insulin; Z79.899 Other long term (current) drug therapy
CPT/HCPCS: 36416; 71045; 71275; 74177; 80053; 81003; 82550; 83605; 83690; 83880; 84443; 84484; 85025; 87804; 93005; 94760; 96365; 96366; 96368; 96375; J2270; J2405; J2550; J2765

== ENCOUNTER 2019-08-13 05:59 | Outpatient (CLI) | payer OTHER ==
[2019-08-13 10:47] LABS: Hemoglobin 14.7 g/dL (12.0-16.0); Mean Corpuscular Hemoglobin 30.6 pg (27.0-31.0); Mean Corpuscular Volume 92.5 fL (78.0-98.0); Mean Platelet Volume 8.9 fL (7.4-10.4); Platelet Count 227 thou/uL (130-400); RBC Distribution Width 13.3 % (11.5-14.5); Red Blood Cell (RBC) Count 4.81 mill/uL (4.20-5.40); White Blood Cell (WBC) Count 8.7 thou/uL (4.8-10.8)
[2019-08-13 11:08] LABS: Anion Gap 17 mmol/L (10-20); BUN (Urea Nitrogen) 15 mg/dL (7.0-18.7); Calc. Creatinine Clearance 0 mL/min (70-130); Calcium 9.7 mg/dL (7.8-10.44); Carbon Dioxide 23 mmol/L (22-29); Chloride 106 mmol/L (98-107); Estimated GFR-MDRD 67; Glucose 158 mg/dL (70-105); Potassium 3.8 mmol/L (3.5-5.1); Sodium 142 mmol/L (136-145)
[2019-08-13 18:03] LABS: SARS-CoV-2 MS2 Positive; SARS-CoV-2 N Gene Negative; SARS-CoV-2 S Gene Negative; SARS-CoV-2 orf1ab Negative
== END 2019-08-13 06:00 | disposition home or self-care (01) ==
LOC: LABBT 05:59
PROVIDERS: ATTEND Orthopaedic Surgery
DX: Z01.812 Encounter for preprocedural laboratory examination (principal); Z11.59 Encounter for screening for other viral diseases; G56.01 Carpal tunnel syndrome, right upper limb; G56.21 Lesion of ulnar nerve, right upper limb
CPT/HCPCS: 80048; 85027; 87635; U0003

== ENCOUNTER 2019-08-15 08:12 | Day surgery (SDC) | payer OTHER ==
[2019-08-13 08:25] VITALS: BMI 43.5
[2019-08-15] MEDS ORDERED: Lidocaine 1% w/Epinephrine 1:100K 20 ML VIAL ONE (11:03)
[2019-08-15] MEDS ORDERED: Fentanyl 100 MCG/2 ML VIAL ONE ×3 (11:22→13:16)
[2019-08-15] MEDS ORDERED: Lidocaine 2% Jelly 5 ML TUBE ONE (11:24)
[2019-08-15] MEDS ORDERED: HYDROcodone/Acetaminophen 5/325 mg Tablet ONE (11:35)
[2019-08-15] MEDS ORDERED: Morphine 4 MG/ML VIAL ONE (13:00)
[2019-08-15] MEDS ORDERED: Morphine 2 MG/ML SYRINGE ONE ×2 (13:05→13:49)
[2019-08-15] MEDS ORDERED: Lidocaine 1% PF 5 ML VIAL ONE (13:33)
[2019-08-15] MEDS ORDERED: Rocuronium Bromide 10 MG/ML (10ML VIAL) ONE (13:33)
[2019-08-15] MEDS ORDERED: Ondansetron PF 4 MG/2 ML Vial ONE (13:33)
[2019-08-15] MEDS ORDERED: PHENYLEPHRINE-NS 100 MCG/ML 10 ML SYRINGE ONE (13:33)
[2019-08-15] MEDS ORDERED: PROPOFOL 200 MG/20 ML VIAL ONE (13:33)
[2019-08-15] MEDS ORDERED: EPHEDRINE 25 MG/5 ML SYRINGE ONE (13:33)
[2019-08-15] MEDS ORDERED: Metoclopramide HCl 10 MG/2 ML VIAL ONE (13:33)
[2019-08-15] MEDS ORDERED: Glycopyrrolate 0.2 MG/ML 5 ML SYRINGE ONE (13:33)
[2019-08-15] MEDS ORDERED: Succinylcholine Chloride 20 MG/ML 10 ml SYRINGE FS ONE (13:33)
--- NOTE | 2019-08-15 20:17 | OP ---
DATE OF PROCEDURE: 08/15/2019 PREOPERATIVE DIAGNOSES: 1. Right cubital tunnel. 2. Right carpal tunnel syndrome. POSTOPERATIVE DIAGNOSES: 1. Right cubital tunnel. 2. Right carpal tunnel syndrome. PROCEDURE PERFORMED: 1. Right open cubital tunnel release. 2. Right carpal tunnel release. 3. Long-arm splint. GAMING COMMISSIONER: None. ANESTHESIA: Cisneros. Patient received general intubation with 10 mL of 1% lidocaine with epi in the elbow and 5 mL of 1% lidocaine in the wrist. ANTIBIOTICS: Ancef 2 g. TOURNIQUET TIME: 39 minutes at 250 mmHg. ESTIMATED BLOOD LOSS: 20 mL. COMPLICATIONS: None. HISTORY OF PRESENT ILLNESS: Ms. Hurley is a 49-year-old female who is right-hand dominant, presents with wasting pain in her right hand, has gradually progressed over the last year. The patient has history of left cubital tunnel and carpal tunnel release. The patient has increasing pain. I discussed with the patient risks, benefits of open cubital tunnel and carpal tunnel release to include pain, scar, bleeding, infection, damage to vital structures, need for further surgeries, continued pain despite surgical intervention, blood clots, loss of life or limb. The patient and family understands these risks and benefits, elected to proceed. DESCRIPTION OF PROCEDURE: Time-out was performed designating the patient's right upper extremity as the operative site based on site, consents, and marking. After time-out, the patient's right upper extremity was prepped and draped in a sterile fashion. Tourniquet was brought up and left for a nice entirety of both procedures. PROCEDURE #1: In the right elbow, an incision made in posterior elbow between the olecranon and the medial epicondyle down to skin. Dissected with scissors, came down on the medial aspect of the triceps, took down the intermuscular septum proximally until we were able to find the nerve, came through Salinas's fascia proximally and released down into the musculature decompressing the nerve in its entire length. I flexed the elbow without subluxation of the nerve. Therefore , I did not transpose the nerve. I washed, I closed the subcu with 2-0 and 3-0 nylon for skin. I injected 10 mL 1% lidocaine in the subcutaneous tissues. I then moved the hand. Procedure #2: After the wheal and in-line incision, dissected down through the hand, radial aspect of the 4th ray proximal to [place] cardinal line_ through skin down through fat, palmar fascia, came through the patient's palmaris brevis, came down through the patient's transverse carpal ligament, dissected down and ensured that it was released in its entirety. I washed, controlled the small vessels of bleeding that I saw and closed with 3-0 nylon. I injected 5 mL 1% lidocaine into the wound total. The patient will be discharged to home in a sling and a splint. She will be on a long-arm splint. She will remove the splint in 1 week. She will cover her hand with a Velcro wrist splint or sling as needed, begin elbow, wrist, and hand motion. She will follow up me in 2 weeks. She will be sent home with 20 hydrocodone tablets. Job ID: [id number] MTDD
== END 2019-08-15 15:55 | disposition home or self-care (01) ==
LOC: SDC 08:12
PROVIDERS: ATTEND Orthopaedic Surgery
PROC: 01N40ZZ Release Ulnar Nerve, Open Approach (ICD-10-PCS; principal; 2019-08-15)
PROC: 01N50ZZ Release Median Nerve, Open Approach (ICD-10-PCS; principal; 2019-08-15)
DX: G56.21 Lesion of ulnar nerve, right upper limb (principal); G56.01 Carpal tunnel syndrome, right upper limb; E11.9 Type 2 diabetes mellitus without complications; E78.00 Pure hypercholesterolemia, unspecified; I10 Essential (primary) hypertension; K21.9 Gastro-esophageal reflux disease without esophagitis; E03.9 Hypothyroidism, unspecified; F31.9 Bipolar disorder, unspecified; Z79.4 Long term (current) use of insulin; Z79.899 Other long term (current) drug therapy; Z88.5 Allergy status to narcotic agent; Z88.6 Allergy status to analgesic agent
CPT/HCPCS: 36416; J0690; J2001; J2270; J2405; J2704; J2765; J3010

== ENCOUNTER 2020-02-25 12:28 | Emergency (ER) | payer OTHER ==
--- NOTE | 2020-02-25 13:08 | RAD ---
EXAM: XR Ankle Rt 3 View STANDARD PROVIDED CLINICAL HISTORY: Pain FINDINGS: There is no evidence for fracture or other acute osseous abnormality. Alignment appears anatomic. Daria nt spaces appear preserved. IMPRESSION: No evidence for an acute osseous abnormality. If there is persistent clinical concern, conservative m anagement and follow-up imaging advised.
== END 2020-02-25 13:35 | disposition home or self-care (01) ==
LOC: ERS 12:28
DX: S93.401A Sprain of unspecified ligament of right ankle, initial encounter (principal); E11.9 Type 2 diabetes mellitus without complications; E78.5 Hyperlipidemia, unspecified; E78.00 Pure hypercholesterolemia, unspecified; I10 Essential (primary) hypertension; Z86.73 Personal history of transient ischemic attack (TIA), and cerebral infarction without residual deficits; E11.40 Type 2 diabetes mellitus with diabetic neuropathy, unspecified; F41.9 Anxiety disorder, unspecified; F31.9 Bipolar disorder, unspecified; F20.9 Schizophrenia, unspecified; Z79.899 Other long term (current) drug therapy; Z79.84 Long term (current) use of oral hypoglycemic drugs; W18.30XA Fall on same level, unspecified, initial encounter

== ENCOUNTER 2020-03-13 11:23 | Emergency (ER) | payer OTHER ==
[2020-03-13] MEDS ORDERED: diphenhydrAMINE 50 MG/ML VIAL ONE (13:14)
[2020-03-13] MEDS ORDERED: Ketorolac Tromethamine 30 MG/ML VIAL ONE (13:14)
== END 2020-03-13 19:19 | disposition home or self-care (01) ==
LOC: ERS 11:23
DX: G89.29 Other chronic pain (principal); M54.30 Sciatica, unspecified side; M79.604 Pain in right leg; I10 Essential (primary) hypertension; E11.40 Type 2 diabetes mellitus with diabetic neuropathy, unspecified; E78.5 Hyperlipidemia, unspecified; E78.00 Pure hypercholesterolemia, unspecified; Z86.73 Personal history of transient ischemic attack (TIA), and cerebral infarction without residual deficits
CPT/HCPCS: 96372; 99281; J1200; J1885

== ENCOUNTER 2021-09-13 10:03 | Outpatient (CLI) | payer OTHER | END 2021-09-13 10:04 | disposition home or self-care (01) | LOC: BICRAD 10:03 | PROVIDERS: ATTEND Family Medicine | DX: R06.00 Dyspnea, unspecified (principal); R22.2 Localized swelling, mass and lump, trunk | CPT/HCPCS: 71046 ==

== ENCOUNTER 2022-08-12 10:13 | Outpatient (CLI) | payer OTHER ==
[2022-08-12 11:43] LABS: #Basophils 0.1 10x3/uL (0.0-0.2); #Eosinphils 0.2 10x3/uL (0.0-0.5); #Neutrophils 5.3 10x3/uL (1.5-8.4); %Basophils 0.7 % (0.0-2.0); %Eosinophils 2.3 % (0.0-6.0); %Lymphocytes 31.1 % (18.0-47.0); %Monocytes 9.7 % (0.0-10.0); %Neutrophils 54.8 % (40.0-75.0); Hemoglobin 15.7 g/dL (12.0-15.5); Mean Corpuscular HGB CONC 34.1 g/dL (32.0-36.0); Mean Corpuscular Hemoglobin 30.4 pg (27.0-33.0); Mean Corpuscular Volume 89.1 fl (81.6-98.3); Mean Platelet Volume 10.8 fl (7.4-10.4); Platelet Count 255 10x3/uL (150-450); RBC Distribution Width 14.6 % (11.5-14.5); Red Blood Cell (RBC) Count 5.16 10x6/uL (3.90-5.03); White Blood Cell (WBC) Count 9.8 10x3/uL (3.5-10.5)
[2022-08-12 11:44] LABS: Anion Gap 17 mmol/L (10-20); BUN (Urea Nitrogen) 20 mg/dL (9.8-20.1); Calc. Creatinine Clearance 0 mL/min (70-130); Calcium 9.7 mg/dL (7.8-10.44); Carbon Dioxide 24 mmol/L (22-29); Chloride 105 mmol/L (98-107); Estimated GFR 74; Glucose 97 mg/dL (70-105); Potassium 4.1 mmol/L (3.5-5.1); Sodium 142 mmol/L (136-145)
== END 2022-08-12 10:14 | disposition home or self-care (01) ==
LOC: LABBT 10:13
PROVIDERS: ATTEND Orthopaedic Surgery Hand Surgery
DX: Z01.818 Encounter for other preprocedural examination (principal); G56.02 Carpal tunnel syndrome, left upper limb; G56.20 Lesion of ulnar nerve, unspecified upper limb; G56.12 Other lesions of median nerve, left upper limb; G52.2 Disorders of vagus nerve
CPT/HCPCS: 80048; 85025; 93005; 93010

== ENCOUNTER 2022-08-15 11:26 | Observation (INO) | payer OTHER ==
[2022-08-15] MEDS ORDERED: Bupivacaine PF 0.5% 30 ML VIAL ONE ×2 (13:24→14:26)
[2022-08-15] MEDS ORDERED: Bacitracin Zinc Ointment 30 gm TUBE ONE (13:24)
[2022-08-15] MEDS ORDERED: Betamet Acet/Betamet Na Ph 30 MG/5 ML VIAL ONE (13:24)
[2022-08-15] MEDS ORDERED: GLYCOPYRROLATE/PF 0.2 MG/ML VIAL ONE (13:28)
[2022-08-15] MEDS ORDERED: Dexamethasone 20 MG/5 ML VIAL ONE (13:28)
[2022-08-15] MEDS ORDERED: Rocuronium Bromide 10 MG/ML (10ML VIAL) ONE (13:28)
[2022-08-15] MEDS ORDERED: PROPOFOL 200 MG/20 ML VIAL ONE (13:28)
[2022-08-15] MEDS ORDERED: NEOSTIGMINE 3 MG/3 ML SYR 3 MG/3 ML SYRINGE ONE (13:28)
[2022-08-15] MEDS ORDERED: Ondansetron PF 4 MG/2 ML Vial ONE (13:28)
[2022-08-15] MEDS ORDERED: Lidocaine 1% PF 5 ML VIAL ONE (13:28)
[2022-08-15] MEDS ORDERED: Midazolam HCl 2 mg/2 ml Vial ONE (13:36)
[2022-08-15] MEDS ORDERED: fentaNYL PF 100 MCG/2 ML SYRINGE ONE (13:36)
[2022-08-15] MEDS ORDERED: CEFAZOLIN 2 GM VIAL ONE (13:43)
[2022-08-15] MEDS ORDERED: Sodium Chloride 0.9% 100 ML ONE (13:43)
[2022-08-15] MEDS ORDERED: Acetaminophen/Codeine 30-300mg Tablet PO PRN (18:54)
[2022-08-15] MEDS ORDERED: Promethazine HCl 25 MG/ML VIAL IM PRN (18:54)
[2022-08-15] MEDS ORDERED: TETANUS, DIPHTHERIA TOX,ADULT (TDVAX) 0.5 ML VIAL IM ONE (18:54)
[2022-08-15] MEDS ORDERED: Ondansetron PF 4 MG/2 ML Vial IVP PRN (18:54)
[2022-08-15] MEDS ORDERED: Bisacodyl 10 MG SUPP PR PRN (18:54)
[2022-08-15] MEDS ORDERED: Acetaminophen 325 MG TAB PO PRN (18:54)
[2022-08-15] MEDS ORDERED: traMADol HCl 50 MG TAB PO PRN (18:54)
[2022-08-15] MEDS ORDERED: Meperidine HCl/PF 25 MG/ML VIAL IM PRN (18:57)
[2022-08-15] MEDS ORDERED: Ketorolac Tromethamine 30 MG/ML VIAL IVP PRN (18:57)
[2022-08-15] MEDS ORDERED: fentaNYL 50 mcg/mL 1 mL Vial ONE ×2 (19:00→19:44)
[2022-08-15] MEDS ORDERED: RENALLY ADJUST ALL ANTIBIOTICS FS SCH (19:00)
[2022-08-15] MEDS: Aspirin 81 mg Enteric Coated Tablet PO SCH (21:04)
[2022-08-15] MEDS: Morphine 4 MG/ML VIAL SLOW IVP PRN (22:24)
[2022-08-15] MEDS: Vancomycin 1.5 GRAM/300 ML BAG 1.5 GM in Premix Bag 1 BAG IVPB SCH (22:25)
[2022-08-15] MEDS: fentaNYL 50 mcg/mL 1 mL Vial SLOW IVP PRN (23:47)
[2022-08-16 00:40] VITALS: BMI 50.1
[2022-08-16] MEDS: fentaNYL 50 mcg/mL 1 mL Vial SLOW IVP PRN ×3 (00:43→07:32)
[2022-08-16] MEDS: Morphine 4 MG/ML VIAL SLOW IVP PRN ×3 (02:21→08:16)
[2022-08-16] MEDS: HYDROcodone/Acetaminophen 5/325 mg Tablet PO PRN ×2 (04:40→09:45)
[2022-08-16] MEDS: Aspirin 81 mg Enteric Coated Tablet PO SCH (07:32)
[2022-08-16] MEDS: Vancomycin 1.5 GRAM/300 ML BAG 1.5 GM in Premix Bag 1 BAG IVPB SCH (07:33)
[2022-08-16] MEDS ORDERED: Insulin Regular 300 UNITS/3 ML VIAL SC PRN (08:39)
[2022-08-16] MEDS ORDERED: cloNIDine 0.1 MG TAB PO SCH (09:00)
[2022-08-16] MEDS ORDERED: Morphine IR Tab 15 MG TAB PO SCH (09:00)
[2022-08-16] MEDS ORDERED: Furosemide 40 MG TAB PO SCH (09:00)
[2022-08-16] MEDS ORDERED: DULoxetine 60 MG CAP PO SCH (09:00)
[2022-08-16] MEDS ORDERED: SEMAGLUTIDE 1 MG/0.75 ML SC SCH (09:00)
[2022-08-16] MEDS ORDERED: HumaLOG 300 UNITS/3 ML VIAL SC SCH (09:00)
[2022-08-16] MEDS ORDERED: Insulin Glargine 30 UNITS/0.3 ML VIAL SC SCH (09:00)
[2022-08-16] MEDS ORDERED: busPIRone HCl 10 MG TAB PO SCH (09:00)
[2022-08-16] MEDS ORDERED: DEXTROAMPHETAMINE PO SCH (09:00)
[2022-08-16] MEDS ORDERED: tiZANidine HCl 4 MG TAB PO SCH (09:00)
[2022-08-16] MEDS ORDERED: Carvedilol 25 MG TAB PO SCH (09:00)
[2022-08-16] MEDS ORDERED: AMPHETAMINE PO SCH (09:00)
[2022-08-16] MEDS ORDERED: Gabapentin 400 MG CAP PO SCH (09:00)
[2022-08-16] MEDS ORDERED: Empagliflozin 25 MG TAB PO SCH (09:00)
[2022-08-16] MEDS ORDERED: Amlodipine 10 MG TAB PO SCH (09:00)
[2022-08-16 11:02] VITALS: BP 150/90; TEMP 98.1
[2022-08-16] MEDS ORDERED: Gabapentin 300 MG CAP PO SCH (12:00)
[2022-08-16] MEDS ORDERED: Ibuprofen 800 MG TAB PO SCH (14:00)
[2022-08-16] MEDS ORDERED: Lisinopril 10 MG TAB PO SCH (21:00)
[2022-08-16] MEDS ORDERED: Atorvastatin Calcium 40 MG TAB PO SCH (21:00)
[2022-08-16] MEDS ORDERED: Aripiprazole 15 MG TAB PO SCH (21:00)
[2022-08-16] MEDS ORDERED: risperiDONE 1 MG TAB PO SCH (21:00)
[2022-08-17] MEDS ORDERED: Levothyroxine Sodium 25 MCG TAB PO SCH (06:00)
[2022-08-17] MEDS ORDERED: Potassium Chloride 10 MEQ TAB PO SCH (08:00)
== END 2022-08-16 11:12 | disposition home or self-care (01) ==
LOC: SDC 11:26 → T4-B 18:54
PROVIDERS: ADMIT Orthopaedic Surgery Hand Surgery; ATTEND Orthopaedic Surgery Hand Surgery
PROC: 01N50ZZ Release Median Nerve, Open Approach (ICD-10-PCS; principal; 2022-08-15)
PROC: 01N40ZZ Release Ulnar Nerve, Open Approach (ICD-10-PCS; 2022-08-15)
PROC: 01U50JZ Supplement Median Nerve with Synthetic Substitute, Open Approach (ICD-10-PCS; 2022-08-15)
DX: G56.12 Other lesions of median nerve, left upper limb (principal); G56.22 Lesion of ulnar nerve, left upper limb; G56.02 Carpal tunnel syndrome, left upper limb; Z79.4 Long term (current) use of insulin; Z79.84 Long term (current) use of oral hypoglycemic drugs; Z79.85 Long-term (current) use of injectable non-insulin antidiabetic drugs; Z79.890 Hormone replacement therapy; Z79.891 Long term (current) use of opiate analgesic; Z79.899 Other long term (current) drug therapy; Z88.5 Allergy status to narcotic agent; Z88.6 Allergy status to analgesic agent; Z98.890 Other specified postprocedural states
CPT/HCPCS: 36416; 96374; 96375; 96376; C1713; G0378; J0702; J1100; J1815; J2250; J2270; J2405; J2704; J3010; J3370; J3490; S0020

== ENCOUNTER 2022-09-01 17:33 | Inpatient (IN) | payer OTHER ==
[2022-09-01] MEDS ORDERED: Ondansetron PF 4 MG/2 ML Vial IVP PRN (17:42)
[2022-09-01] MEDS ORDERED: Morphine 4 MG/ML VIAL SLOW IVP PRN (17:42)
[2022-09-01] MEDS ORDERED: Promethazine HCl 25 MG/ML VIAL IM PRN ×2 (17:42→23:57)
[2022-09-01] MEDS ORDERED: TETANUS, DIPHTHERIA TOX,ADULT (TDVAX) 0.5 ML VIAL IM ONE (17:42)
[2022-09-01] MEDS ORDERED: HYDROcodone/Acetaminophen 5/325 mg Tablet PO PRN (17:42)
[2022-09-01] MEDS ORDERED: Communication Order-Pharmacy FS PRN (17:45)
[2022-09-01] MEDS ORDERED: Meperidine HCl/PF 25 MG/ML VIAL IM PRN (17:47)
[2022-09-01 18:58] LABS: #Basophils 0.1 thou/uL (0.0-0.2); #Eosinphils 0.3 thou/uL (0.0-0.7); #Monocytes 1.1 thou/uL (0.11-0.59); #Neutrophils 5.5 thou/uL (1.40-6.50); %Basophils 0.7 % (0.0-1.0); %Lymphocytes 28.2 % (21.0-51.0); %Monocytes 11.3 % (0.0-10.0); %Neutrophils 56.5 % (42.0-75.0); Hemoglobin 13.1 g/dL (12.0-16.0); Mean Corpuscular HGB CONC 32.3 g/dL (32.0-36.0); Mean Corpuscular Volume 92.9 fl (78.0-98.0); Mean Platelet Volume 10.8 fL (7.4-10.4); Platelet Count 253 10x3/uL (130-400); RBC Distribution Width 14.6 % (11.5-14.5); Red Blood Cell (RBC) Count 4.36 mill/uL (4.20-5.40); White Blood Cell (WBC) Count 9.7 10x3/uL (4.8-10.8)
[2022-09-01 19:21] LABS: ALT (SGPT) 26 U/L (8-55); AST (SGOT) 20 U/L (5-34); Albumin 4.2 g/dL (3.5-5.0); Alkaline Phosphatase 116 U/L (40-110); Anion Gap 16 mmol/L (10-20); BUN (Urea Nitrogen) 16 mg/dL (9.8-20.1); Bilirubin, Total 0.7 mg/dL (0.2-1.2); Calc. Creatinine Clearance 0 mL/min (70-130); Carbon Dioxide 22 mmol/L (22-29); Chloride 107 mmol/L (98-107); Estimated GFR 75; Globulin 3.5 g/dL (2.4-3.5); Glucose 123 mg/dL (70-105); Potassium 4.1 mmol/L (3.5-5.1); Protein, Total 7.7 g/dL (6.0-8.3); Sodium 141 mmol/L (136-145)
[2022-09-01 19:25] VITALS: BMI 43.7
[2022-09-01] MEDS ORDERED: Vancomycin 500 MG VIAL (PEDI) ONE (20:04)
[2022-09-01] MEDS ORDERED: Bacitracin Zinc Ointment 30 gm TUBE ONE (20:04)
[2022-09-01] MEDS ORDERED: Bupivacaine PF 0.5% 30 ML VIAL ONE (20:04)
[2022-09-01] MEDS ORDERED: fentaNYL PF 100 MCG/2 ML SYRINGE ONE (20:40)
[2022-09-01] MEDS ORDERED: Succinylcholine Chloride 100 MG/5 ML SYRINGE FS ONE (21:23)
[2022-09-01] MEDS ORDERED: Dexamethasone 20 MG/5 ML VIAL ONE (21:23)
[2022-09-01] MEDS ORDERED: PROPOFOL 200 MG/20 ML VIAL ONE (21:23)
[2022-09-01] MEDS ORDERED: NEOSTIGMINE 3 MG/3 ML SYR 3 MG/3 ML SYRINGE ONE (21:23)
[2022-09-01] MEDS ORDERED: GLYCOPYRROLATE/PF 0.2 MG/ML VIAL ONE (21:23)
[2022-09-01] MEDS ORDERED: Ondansetron PF 4 MG/2 ML Vial ONE ×2 (21:23→23:53)
[2022-09-01] MEDS ORDERED: Lidocaine 1% PF 5 ML VIAL ONE (21:23)
[2022-09-01] MEDS ORDERED: Rocuronium Bromide 10 MG/ML (10ML VIAL) ONE (21:23)
[2022-09-01] MEDS ORDERED: Piperacillin/Tazobactam 3.375 GM VIAL ONE (22:30)
[2022-09-01] MEDS ORDERED: Ondansetron HCl/PF 4 MG/2 ML Vial IVP PRN (23:57)
[2022-09-02] MEDS ORDERED: fentaNYL 50 mcg/mL 1 mL Vial ONE ×2 (00:19→00:34)
[2022-09-02] MEDS: Vancomycin 1 GM in Premix Bag 1 BAG IVPB SCH ×3 (00:40→21:37)
[2022-09-02] MEDS ORDERED: Dextrose 50% Abboject 50 ML SYRINGE IVP PRN (02:00)
[2022-09-02] MEDS ORDERED: Dextrose 5% in Water 1,000 ML IV PRN (02:00)
[2022-09-02] MEDS ORDERED: Glucagon 1 MG/ML KIT IM PRN (02:00)
[2022-09-02] MEDS: fentaNYL 50 mcg/mL 1 mL Vial SLOW IVP PRN ×2 (02:03→04:13)
[2022-09-02] MEDS ORDERED: Zolpidem Tartrate 5 MG TAB PO PRN (04:57)
[2022-09-02] MEDS ORDERED: Ondansetron PF 4 MG/2 ML Vial IVP PRN (04:57)
[2022-09-02] MEDS ORDERED: Naloxone HCl 0.4 mg/ml Vial IV PRN (04:57)
[2022-09-02] MEDS ORDERED: FENTANYL 500 MCG/10 ML VIAL 2,000 MCG in Sodium Chloride 0.9% 60 ML IV PRN (04:57)
[2022-09-02] MEDS ORDERED: Communication Order-Pharmacy FS SCH (05:00)
[2022-09-02] MEDS: Levothyroxine Sodium 25 MCG TAB PO SCH (05:40)
[2022-09-02] MEDS ORDERED: Morphine IR Tab 15 MG TAB PO PRN (07:16)
[2022-09-02] MEDS: HumaLOG 300 UNITS/3 ML VIAL SC SCH ×3 (07:38→16:16)
[2022-09-02] MEDS: tiZANidine HCl 4 MG TAB PO SCH ×3 (08:37→21:41)
[2022-09-02] MEDS: Potassium Chloride 10 MEQ TAB PO SCH (08:37)
[2022-09-02] MEDS: Gabapentin 300 MG CAP PO SCH ×3 (08:37→21:42)
[2022-09-02] MEDS: cloNIDine 0.1 MG TAB PO SCH ×2 (08:38→21:41)
[2022-09-02] MEDS: Loratadine 10 MG TAB PO SCH (08:38)
[2022-09-02] MEDS: busPIRone HCl 10 MG TAB PO SCH ×3 (08:38→21:40)
[2022-09-02] MEDS: Furosemide 40 MG TAB PO SCH (08:38)
[2022-09-02] MEDS: DULoxetine 60 MG CAP PO SCH (08:38)
[2022-09-02] MEDS: Carvedilol 25 MG TAB PO SCH ×2 (08:38→16:16)
[2022-09-02] MEDS: Empagliflozin 25 MG TAB PO SCH (08:38)
[2022-09-02] MEDS: Amlodipine 10 MG TAB PO SCH (08:38)
[2022-09-02] MEDS: Insulin Glargine 30 UNITS/0.3 ML VIAL SC SCH ×2 (08:39→21:43)
[2022-09-02] MEDS ORDERED: Gabapentin 300 MG CAP PO SCH (09:00)
[2022-09-02] MEDS ORDERED: HYDROmorphone 0.5 MG/0.5 ML SYRINGE SLOW IVP SCH (09:15)
[2022-09-02] MEDS: HYDROmorphone/PF 10 MG in Sodium Chloride 0.9% 99 ML IVPB PRN (11:10)
[2022-09-02] MEDS: Morphine IR Tab 15 MG TAB PO SCH ×2 (14:25→21:37)
[2022-09-02] MEDS: Atorvastatin Calcium 40 MG TAB PO SCH (21:39)
[2022-09-02] MEDS: Aripiprazole 15 MG TAB PO SCH (21:39)
[2022-09-02] MEDS: risperiDONE 1 MG TAB PO SCH (21:40)
[2022-09-02] MEDS: Lisinopril 10 MG TAB PO SCH (21:42)
[2022-09-02] MEDS ORDERED: Gentamicin 80 MG/2 ML VIAL IVPB SCH (22:00)
[2022-09-02] MEDS: SODIUM CHLORIDE IVPB SCH (23:02)
[2022-09-02] MEDS: ADMIXTURE FEE IVPB SCH (23:02)
[2022-09-02] MEDS: GENTAMICIN IVPB SCH (23:02)
[2022-09-03] MEDS: HYDROmorphone/PF 10 MG in Sodium Chloride 0.9% 99 ML IVPB PRN ×2 (02:47→20:44)
[2022-09-03] MEDS ORDERED: Labetalol HCl 100 MG/20 ML VIAL ONE (03:04)
[2022-09-03 03:44] LABS: Bacteria/HPF None Seen HPF (None Seen); Bilirubin Negative (Negative); Blood, Urine Negative (Negative); CAUTI Indications for Culture Dysuria,urgency,freq; Clarity Clear (Clear); Glucose, Urine (Dipstick) Greater than 1000 mg/dL (Negative); Ketone, Urine Negative (Negative); Leukocyte Negative Leu/uL (Negative); Nitrite Negative (Negative); Protein, Urine (Dipstick) Negative (Neg-Trace); Specific Gravity, Urine 1.039 (1.002-1.036); Urobilinogen Normal mg/dL (Less than 2); pH, Urine 6.5 (5.0-9.0)
[2022-09-03 03:55] LABS: Urine Culture Reflex No No
[2022-09-03] MEDS: GENTAMICIN IVPB SCH (06:00)
[2022-09-03] MEDS: SODIUM CHLORIDE IVPB SCH (06:00)
[2022-09-03] MEDS: ADMIXTURE FEE IVPB SCH (06:00)
[2022-09-03] MEDS: Levothyroxine Sodium 25 MCG TAB PO SCH (06:03)
[2022-09-03] MEDS: HumaLOG 300 UNITS/3 ML VIAL SC SCH ×3 (06:03→16:30)
[2022-09-03] MEDS: Empagliflozin 25 MG TAB PO SCH (08:48)
[2022-09-03] MEDS: DULoxetine 60 MG CAP PO SCH (08:48)
[2022-09-03] MEDS: Furosemide 40 MG TAB PO SCH (08:49)
[2022-09-03] MEDS: Gabapentin 300 MG CAP PO SCH ×3 (08:50→20:43)
[2022-09-03] MEDS: busPIRone HCl 10 MG TAB PO SCH ×3 (08:51→20:50)
[2022-09-03] MEDS: tiZANidine HCl 4 MG TAB PO SCH ×3 (08:51→20:52)
[2022-09-03] MEDS: Carvedilol 25 MG TAB PO SCH ×2 (08:51→16:30)
[2022-09-03] MEDS: cloNIDine 0.1 MG TAB PO SCH ×2 (08:51→21:24)
[2022-09-03] MEDS: Morphine IR Tab 15 MG TAB PO SCH ×3 (08:52→20:51)
[2022-09-03] MEDS: Amlodipine 10 MG TAB PO SCH (08:52)
[2022-09-03] MEDS: Loratadine 10 MG TAB PO SCH (08:52)
[2022-09-03] MEDS: Insulin Glargine 30 UNITS/0.3 ML VIAL SC SCH ×3 (08:52→21:09)
[2022-09-03] MEDS: Potassium Chloride 10 MEQ TAB PO SCH ×2 (08:55→10:24)
[2022-09-03] MEDS ORDERED: Promethazine HCl 25 MG/ML VIAL IM SCH (09:00)
[2022-09-03] MEDS ORDERED: Meperidine HCl/PF 25 MG/ML VIAL IM SCH (09:00)
[2022-09-03] MEDS: Vancomycin 1 GM in Premix Bag 1 BAG IVPB SCH (10:29)
[2022-09-03] MEDS ORDERED: Vancomycin 1.5 GRAM/300 ML BAG 1.5 GM in Premix Bag 1 BAG IVPB SCH (11:00)
[2022-09-03] MEDS: Mag-Al 1200 mg/1200 mg/30 ML UDCUP PO PRN (16:30)
[2022-09-03] MEDS: Aripiprazole 15 MG TAB PO SCH (20:49)
[2022-09-03] MEDS: Atorvastatin Calcium 40 MG TAB PO SCH (20:50)
[2022-09-03] MEDS: risperiDONE 1 MG TAB PO SCH (20:50)
[2022-09-03] MEDS: Cefepime 2 GM in Sodium Chloride 0.9% 100 ML IVPB SCH (21:01)
[2022-09-03] MEDS: Lisinopril 10 MG TAB PO SCH (21:25)
[2022-09-04] MEDS: Levothyroxine Sodium 25 MCG TAB PO SCH (06:39)
[2022-09-04] MEDS ORDERED: HumaLOG 300 UNITS/3 ML VIAL SC SCH (08:00)
[2022-09-04] MEDS: tiZANidine HCl 4 MG TAB PO SCH ×3 (08:49→20:28)
[2022-09-04] MEDS: Morphine IR Tab 15 MG TAB PO SCH ×3 (08:49→20:30)
[2022-09-04] MEDS: busPIRone HCl 10 MG TAB PO SCH ×3 (08:50→20:27)
[2022-09-04] MEDS: Empagliflozin 25 MG TAB PO SCH (08:50)
[2022-09-04] MEDS: Potassium Chloride 10 MEQ TAB PO SCH (08:50)
[2022-09-04] MEDS: cloNIDine 0.1 MG TAB PO SCH ×2 (08:51→20:31)
[2022-09-04] MEDS: DULoxetine 60 MG CAP PO SCH (08:51)
[2022-09-04] MEDS: Amlodipine 10 MG TAB PO SCH (08:51)
[2022-09-04] MEDS: Loratadine 10 MG TAB PO SCH (08:51)
[2022-09-04] MEDS: Furosemide 40 MG TAB PO SCH (08:51)
[2022-09-04] MEDS: Carvedilol 25 MG TAB PO SCH ×2 (08:51→16:40)
[2022-09-04] MEDS: Insulin Glargine 30 UNITS/0.3 ML VIAL SC SCH ×2 (08:52→20:31)
[2022-09-04] MEDS: HumaLOG 300 UNITS/3 ML VIAL SC SCH ×3 (08:52→16:41)
[2022-09-04] MEDS: Gabapentin 300 MG CAP PO SCH ×3 (08:52→20:28)
[2022-09-04] MEDS: Cefepime 2 GM in Sodium Chloride 0.9% 100 ML IVPB SCH (08:53)
[2022-09-04] MEDS: HYDROmorphone/PF 10 MG in Sodium Chloride 0.9% 99 ML IVPB PRN (12:11)
[2022-09-04] MEDS: Mag-Al 1200 mg/1200 mg/30 ML UDCUP PO PRN (16:40)
[2022-09-04] MEDS: Aripiprazole 15 MG TAB PO SCH (20:29)
[2022-09-04] MEDS: risperiDONE 1 MG TAB PO SCH (20:29)
[2022-09-04] MEDS: Ciprofloxacin 500 MG TAB PO SCH (20:30)
[2022-09-04] MEDS: Lisinopril 10 MG TAB PO SCH (20:30)
[2022-09-04] MEDS: Atorvastatin Calcium 40 MG TAB PO SCH (20:30)
[2022-09-05] MEDS: Mag-Al 1200 mg/1200 mg/30 ML UDCUP PO PRN ×2 (00:11→12:23)
[2022-09-05] MEDS: HYDROmorphone/PF 10 MG in Sodium Chloride 0.9% 99 ML IVPB PRN ×2 (01:00→16:04)
[2022-09-05] MEDS: Ciprofloxacin 500 MG TAB PO SCH ×2 (05:02→20:58)
[2022-09-05] MEDS: Levothyroxine Sodium 25 MCG TAB PO SCH (05:02)
[2022-09-05] MEDS: Morphine IR Tab 15 MG TAB PO SCH ×3 (08:29→21:02)
[2022-09-05] MEDS: DULoxetine 60 MG CAP PO SCH (08:31)
[2022-09-05] MEDS: tiZANidine HCl 4 MG TAB PO SCH ×3 (08:31→21:03)
[2022-09-05] MEDS: Amlodipine 10 MG TAB PO SCH (08:32)
[2022-09-05] MEDS: Loratadine 10 MG TAB PO SCH (08:32)
[2022-09-05] MEDS: Potassium Chloride 10 MEQ TAB PO SCH (08:32)
[2022-09-05] MEDS: busPIRone HCl 10 MG TAB PO SCH ×3 (08:32→21:01)
[2022-09-05] MEDS: cloNIDine 0.1 MG TAB PO SCH ×2 (08:33→21:03)
[2022-09-05] MEDS: Carvedilol 25 MG TAB PO SCH ×2 (08:33→18:20)
[2022-09-05] MEDS: Empagliflozin 25 MG TAB PO SCH (08:33)
[2022-09-05] MEDS: Furosemide 40 MG TAB PO SCH (08:33)
[2022-09-05] MEDS: Gabapentin 300 MG CAP PO SCH ×3 (08:34→20:59)
[2022-09-05] MEDS: HumaLOG 300 UNITS/3 ML VIAL SC SCH ×3 (08:48→19:59)
[2022-09-05] MEDS ORDERED: Insulin Glargine 30 UNITS/0.3 ML VIAL SC SCH ×2 (09:00→21:00)
[2022-09-05] MEDS: risperiDONE 1 MG TAB PO SCH (21:02)
[2022-09-05] MEDS: Lisinopril 10 MG TAB PO SCH (21:02)
[2022-09-05] MEDS: Aripiprazole 15 MG TAB PO SCH (21:03)
[2022-09-05] MEDS: Atorvastatin Calcium 40 MG TAB PO SCH (21:03)
[2022-09-05] MEDS: Insulin Glargine 30 UNITS/0.3 ML VIAL SC SCH (22:06)
[2022-09-06] MEDS: Carvedilol 25 MG TAB PO SCH ×2 (05:36→18:10)
[2022-09-06] MEDS: Levothyroxine Sodium 25 MCG TAB PO SCH (05:36)
[2022-09-06] MEDS: Ciprofloxacin 500 MG TAB PO SCH ×2 (05:36→19:54)
[2022-09-06] MEDS: HYDROmorphone/PF 10 MG in Sodium Chloride 0.9% 99 ML IVPB PRN ×2 (06:48→21:48)
[2022-09-06] MEDS: HumaLOG 300 UNITS/3 ML VIAL SC SCH ×3 (09:04→18:11)
[2022-09-06] MEDS: Amlodipine 10 MG TAB PO SCH (09:04)
[2022-09-06] MEDS: Potassium Chloride 10 MEQ TAB PO SCH (09:04)
[2022-09-06] MEDS: cloNIDine 0.1 MG TAB PO SCH ×2 (09:04→22:16)
[2022-09-06] MEDS: DULoxetine 60 MG CAP PO SCH (09:04)
[2022-09-06] MEDS: busPIRone HCl 10 MG TAB PO SCH ×3 (09:04→19:56)
[2022-09-06] MEDS: Furosemide 40 MG TAB PO SCH (09:05)
[2022-09-06] MEDS: Gabapentin 300 MG CAP PO SCH ×3 (09:05→19:58)
[2022-09-06] MEDS: Empagliflozin 25 MG TAB PO SCH (09:05)
[2022-09-06] MEDS: Loratadine 10 MG TAB PO SCH (09:05)
[2022-09-06] MEDS: Insulin Glargine 30 UNITS/0.3 ML VIAL SC SCH ×2 (09:05→22:17)
[2022-09-06] MEDS: tiZANidine HCl 4 MG TAB PO SCH ×3 (09:06→20:01)
[2022-09-06] MEDS: Morphine IR Tab 15 MG TAB PO SCH ×3 (09:06→19:59)
[2022-09-06] MEDS ORDERED: Ketamine In 0.9 % NaCl 50 MG/5 ML SYRINGE ONE (13:45)
[2022-09-06] MEDS ORDERED: fentaNYL PF 100 MCG/2 ML SYRINGE ONE (13:48)
[2022-09-06] MEDS ORDERED: Mineral Oil Sterile 10 ML VIAL ONE (14:01)
[2022-09-06] MEDS ORDERED: Bupivacaine 0.25% HCL 30 ML VIAL ONE (14:01)
[2022-09-06] MEDS ORDERED: Bacitracin Zinc Ointment 30 gm TUBE ONE (14:01)
[2022-09-06] MEDS ORDERED: CEFAZOLIN 2 GM VIAL ONE (14:12)
[2022-09-06] MEDS ORDERED: Sodium Chloride 0.9% 0 ML ONE (14:12)
[2022-09-06] MEDS ORDERED: Rocuronium Bromide 10 MG/ML (10ML VIAL) ONE (14:28)
[2022-09-06] MEDS ORDERED: GLYCOPYRROLATE/PF 0.2 MG/ML VIAL ONE (14:28)
[2022-09-06] MEDS ORDERED: PROPOFOL 200 MG/20 ML VIAL ONE (14:28)
[2022-09-06] MEDS ORDERED: Succinylcholine 200 MG/10 ml SYRINGE FS ONE (14:28)
[2022-09-06] MEDS ORDERED: ePHEDrine Sulfate 50 MG/10 ML VIAL ONE (14:28)
[2022-09-06] MEDS ORDERED: HYDROmorphone 0.5 MG/0.5 ML SYRINGE ONE ×3 (14:39→17:08)
[2022-09-06] MEDS ORDERED: Gentamicin 80 MG/2 ML VIAL ONE (14:50)
[2022-09-06] MEDS ORDERED: Thrombin 5000 UNITS/5 ML VIAL ONE (15:01)
[2022-09-06] MEDS ORDERED: fentaNYL 50 mcg/mL 1 mL Vial ONE ×4 (16:23→17:22)
[2022-09-06] MEDS ORDERED: Promethazine HCl 25 MG/ML VIAL ONE (16:40)
[2022-09-06] MEDS ORDERED: Gentamicin Sulfate 80 MG in Premix Bag 1 BAG IVPB SCH (18:00)
[2022-09-06] MEDS: Aripiprazole 15 MG TAB PO SCH (19:55)
[2022-09-06] MEDS: Atorvastatin Calcium 40 MG TAB PO SCH (19:56)
[2022-09-06] MEDS: risperiDONE 1 MG TAB PO SCH (20:02)
[2022-09-06] MEDS: Lisinopril 10 MG TAB PO SCH (22:17)
[2022-09-07] MEDS: Ciprofloxacin 500 MG TAB PO SCH (06:20)
[2022-09-07] MEDS: Levothyroxine Sodium 25 MCG TAB PO SCH (06:20)
[2022-09-07] MEDS ORDERED: traMADol HCl 50 MG TAB PO SCH ×2 (08:00→12:00)
[2022-09-07] MEDS ORDERED: Gabapentin 300 MG CAP PO SCH ×2 (08:00→14:00)
[2022-09-07] MEDS: DULoxetine 60 MG CAP PO SCH (08:32)
[2022-09-07] MEDS: Furosemide 40 MG TAB PO SCH (08:32)
[2022-09-07] MEDS: Carvedilol 25 MG TAB PO SCH (08:32)
[2022-09-07] MEDS: Potassium Chloride 10 MEQ TAB PO SCH (08:32)
[2022-09-07] MEDS: Morphine IR Tab 15 MG TAB PO SCH ×2 (08:33→15:05)
[2022-09-07] MEDS: busPIRone HCl 10 MG TAB PO SCH ×2 (08:34→15:05)
[2022-09-07] MEDS: Loratadine 10 MG TAB PO SCH (08:34)
[2022-09-07] MEDS: Empagliflozin 25 MG TAB PO SCH (08:35)
[2022-09-07] MEDS: Insulin Glargine 30 UNITS/0.3 ML VIAL SC SCH (08:43)
[2022-09-07] MEDS: Gabapentin 300 MG CAP PO SCH ×2 (08:48→13:04)
[2022-09-07] MEDS: HumaLOG 300 UNITS/3 ML VIAL SC SCH ×2 (08:48→13:05)
[2022-09-07] MEDS: tiZANidine HCl 4 MG TAB PO SCH (10:24)
[2022-09-07] MEDS: cloNIDine 0.1 MG TAB PO SCH (12:10)
[2022-09-07] MEDS: Amlodipine 10 MG TAB PO SCH (12:10)
[2022-09-07] MEDS ORDERED: Acetaminophen 325 MG TAB PO SCH (14:00)
[2022-09-07 15:51] VITALS: BP 107/73; TEMP 98
== END 2022-09-07 16:40 | disposition home or self-care (01) | DRG 857 ==
LOC: SURG A 18:22
PROVIDERS: ADMIT Internal Medicine; ATTEND Orthopaedic Surgery Hand Surgery
PROC: 0LB80ZZ Excision of Left Hand Tendon, Open Approach (ICD-10-PCS; principal; 2022-09-01)
PROC: 0L960ZZ Drainage of Left Lower Arm and Wrist Tendon, Open Approach (ICD-10-PCS; 2022-09-01)
PROC: 0HREXK3 Replacement of Left Lower Arm Skin with Nonautologous Tissue Substitute, Full Thickness, External Approach (ICD-10-PCS; 2022-09-06)
PROC: 0LB60ZZ Excision of Left Lower Arm and Wrist Tendon, Open Approach (ICD-10-PCS; 2022-09-06)
PROC: 01Q50ZZ Repair Median Nerve, Open Approach (ICD-10-PCS; 2022-09-06)
PROC: 01Q40ZZ Repair Ulnar Nerve, Open Approach (ICD-10-PCS; 2022-09-06)
DX: T81.42XA Infection following a procedure, deep incisional surgical site, initial encounter (principal); F20.0 Paranoid schizophrenia; L02.512 Cutaneous abscess of left hand; Z68.41 Body mass index [BMI] 40.0-44.9, adult; E11.9 Type 2 diabetes mellitus without complications; I10 Essential (primary) hypertension; F31.9 Bipolar disorder, unspecified; F41.9 Anxiety disorder, unspecified; I25.10 Atherosclerotic heart disease of native coronary artery without angina pectoris; E78.5 Hyperlipidemia, unspecified; E66.01 Morbid (severe) obesity due to excess calories; B96.20 Unspecified Escherichia coli [E. coli] as the cause of diseases classified elsewhere; Y83.8 Other surgical procedures as the cause of abnormal reaction of the patient, or of later complication, without mention of misadventure at the time of the procedure; Z88.8 Allergy status to other drugs, medicaments and biological substances; Z98.890 Other specified postprocedural states; Z90.710 Acquired absence of both cervix and uterus; Z79.899 Other long term (current) drug therapy; Z79.890 Hormone replacement therapy; Z79.4 Long term (current) use of insulin
CPT/HCPCS: 36415; 36416; 71045; 80053; 80170; 80202; 81001; 85025; 85652; 87070; 87077; 87186; 87205; 97139; C1713; C1751; C9363-KX-JC; J0692; J1100; J1170; J1580; J1815; J2175; J2270; J2405; J2543; J2550; J2704; J3010; J3370; J3370-JW; J3371; J3490; S0020

== ENCOUNTER 2024-11-30 02:56 | Emergency (ER) | payer MEDICAID ==
[2024-11-30 03:51] LABS: #Basophils 0.06 10x3/uL (0.0-0.2); #Eosinophils 0.23 10x3/uL (0.0-0.7); #Monocytes 0.71 10x3/uL (0.11-0.59); #Neutrophils 2.28 10x3/uL (1.40-6.50); %Basophils 1.0 % (0.0-1.0); %Eosinophils 3.8 % (0.0-10.0); %Lymphocytes 45.5 % (21.0-51.0); %Monocytes 11.7 % (0.0-10.0); %Neutrophils 37.7 % (42.0-75.0); Hematocrit 40.8 % (36.0-47.0); Hemoglobin 13.9 g/dL (12.0-16.0); Mean Corpuscular Hemoglobin 30.4 pg (27.0-31.0); Mean Corpuscular Volume 89.3 fL (78.0-98.0); Platelet Count 199 10x3/uL (130-400); Red Blood Cell (RBC) Count 4.57 mill/uL (4.20-5.40); White Blood Cell (WBC) Count 6.06 10x3/uL (4.8-10.8)
[2024-11-30] MEDS ORDERED: Lidocaine 1% w/Epinephrine 1:100K 20 ML VIAL ONE (03:55)
[2024-11-30 04:06] LABS: INR-International Normal Ratio 1.0; PTT 29.4 sec (22.9-36.1); Prothrombin Time 13.6 sec (12.0-14.7)
[2024-11-30 04:07] LABS: Acetaminophen Less than 10 mcg/mL (Less than 10); Salicylate Less than 8.0 mg/dL (Less than 8.0)
[2024-11-30 04:08] LABS: ALT (SGPT) 25 U/L (Less than 34); AST (SGOT) 33 U/L (11-34); Albumin 3.8 g/dL (3.1-4.5); Alkaline Phosphatase 127 U/L (40-110); Anion Gap 13 mmol/L (10-20); BUN (Urea Nitrogen) 16 mg/dL (9.8-20.1); Bilirubin, Total 0.6 mg/dL (0.3-1.2); Calc. Creatinine Clearance 0 mL/min (70-130); Calcium 9.3 mg/dL (7.8-10.44); Carbon Dioxide 23 mmol/L (22-29); Chloride 103 mmol/L (98-107); Globulin 2.6 g/dL (2.4-3.5); Glucose 331 mg/dL (70-105); Magnesium 2.1 mg/dL (1.6-2.6); Potassium 4.0 mmol/L (3.5-5.1); Sodium 135 mmol/L (136-145)
[2024-11-30 04:45] LABS: Actual Bicarbonate (HCO3a) 24.7 mEq/L (22-28); Analyzer IN Cardio ER; Base Excess (BEa) -1.7 mEq/L (-2.0 to +3.0); CO2 Tension 48.3 mmHg (35.0-45.0); Calcium, Ionized (arterial) 1.25 mmol/L (1.12-1.30); Hematocrit-ABG 42 % (36.0-47.0); Hemoglobin (Hb) 14.4 g/dL (12.0-16.0); O2 Tension (PaO2), arterial 63.2 mmHg (80.0-100.0); Potassium - ABG Lab 4.10 mmol/L (3.70-5.30); pH, Arterial 7.327 (7.35-7.45)
[2024-11-30 04:46] LABS: ALV-art Gradient 104.585 mmHg (0-20); Puncture Site Right Brachial art
[2024-11-30 05:15] LABS: Free T4 (Free Thyroxine) 0.86 ng/dL (0.70-1.48)
[2024-11-30] MEDS ORDERED: Ondansetron PF 4 MG/2 ML Vial ONE (05:29)
[2024-11-30 06:37] LABS: Cocaine Metabolite Screen Negative (Negative); THC/Cannabinoid Screen Negative (Negative); Tricyclic Screen Negative (Negative)
[2024-11-30] MEDS ORDERED: Iopamidol 370 76% 100 ML VIAL ONE (16:02)
== END 2024-11-30 07:40 | disposition home or self-care (01) ==
LOC: ERS 02:56
DX: S01.81XA Laceration without foreign body of other part of head, initial encounter (principal); E11.42 Type 2 diabetes mellitus with diabetic polyneuropathy; E78.5 Hyperlipidemia, unspecified; I10 Essential (primary) hypertension; Z79.899 Other long term (current) drug therapy; W10.9XXA Fall (on) (from) unspecified stairs and steps, initial encounter; Y92.009 Unspecified place in unspecified non-institutional (private) residence as the place of occurrence of the external cause
CPT/HCPCS: 12013; 36415; 36600; 70450; 71260; 72125; 74177; 80053; 80306; 80307; 82805; 83735; 84439; 84443; 84481; 84484; 85025; 85610; 85730; 93005; 96374; 96375; J2270; J2405